=== PATIENT | female | born 1975 | race Caucasian/White ===

== ENCOUNTER → 2016-05-20 | Outpatient (CLI) | payer BC ==
--- NOTE | 2016-05-20 17:23 | XR ---
EXAMINATION TYPE: XR chest 2V DATE OF EXAM: 05/20/2016 2:43 PM COMPARISON: NONE INDICATION: Presurgical evaluation TECHNIQUE: Frontal and lateral views of the chest are obtained. FINDINGS: The heart size is normal. The pulmonary vasculature is normal. The lungs are clear. Osseous structures as visualized appear normal. IMPRESSION: 1. No acute pulmonary process.
== END | disposition home or self-care (01) ==
LOC: RADXRMAIN 13:46
PROVIDERS: ATTEND Family Medicine
DX: Z01.818 Encounter for other preprocedural examination (principal); Z01.812 Encounter for preprocedural laboratory examination
CPT/HCPCS: 71020

== ENCOUNTER → 2016-08-24 | Outpatient (CLI) | payer BC ==
[2016-08-24 09:49] LABS: Anisocytosis Moderate; CH 30.7; CHCM 34.4; HCT 26.4 % (34.0-46.0); HDW 3.52; HGB 8.9 gm/dL (11.4-16.0); MCH 30.2 pg (25.0-35.0); MCHC 33.7 g/dL (31.0-37.0); MCV 89.8 fL (80.0-100.0); Macrocytosis Slight; Mean Platelet Volume 6.8; Poikilocytosis Slight; RBC 2.94 m/uL (3.80-5.40); RDW 20.7 % (11.5-15.5); WBC 2.2 k/uL (3.8-10.6)
== END | disposition home or self-care (01) ==
LOC: LABWHC1 08:55
PROVIDERS: ATTEND Internal Medicine Medical Oncology
DX: C50.911 Malignant neoplasm of unspecified site of right female breast (principal)
CPT/HCPCS: 36415; 85027

== ENCOUNTER 2019-03-11 13:43 | Emergency (ER) | payer OTHER ==
[2019-03-11 13:50] VITALS: BP 114/76; PULSE 109; RESP 18; TEMP 97.9
--- NOTE | 2019-03-11 14:21 | XR ---
Left ankle HISTORY: Trauma and pain 3 views of the left ankle Bone mineralization, joint spaces and alignment are maintained. There is mild soft tissue swelling. IMPRESSION: No acute fracture or dislocation.
--- NOTE | 2019-03-11 14:32 | ED ---
Lower Extremity Injury HPI - General Chief Complaint: Extremity Injury, Lower Stated Complaint: L ankle injury Time Seen by Provider: 03/11/19 13:50 Source: patient Mode of arrival: wheelchair Limitations: no limitations - History of Present Illness Initial Comments: 43-year-old female presents emergency Department chief complaint left ankle injury. Patient states that she wears an AFO brace on the right states that she forgot she denies she wanted states that she slipped. Patient twisted her left ankle. Patient complains of pain on the lateral aspect of her left ankle. She states that she does use crutches because she has cerebral palsy. Patient denies any other injuries at this time. - Related Data Home Medications Medication Instructions Recorded Confirmed Albuterol Inhaler [Ventolin 1 - 2 puff INHALATION Q6HR PRN 07/10/14 04/09/16 Inhaler] Cholecalciferol [Vitamin D3] 2,000 unit PO DAILY 07/10/14 04/09/16 LORazepam [Ativan] 1 mg PO HS 07/10/14 04/09/16 Loratadine-Pseudoeph 10-240 mg 1 each PO DAILY 07/10/14 04/09/16 [Claritin-D 24 Hr] PARoxetine HCL [Paxil Cr] 25 mg PO DAILY 07/10/14 04/09/16 Amoxic-Pot Clav 875-125Mg 1 tab PO Q12HR 12/30/15 04/09/16 [Augmentin 875-125] Ciprofloxacin/Hydrocortisone 3 drops BOTH EARS TID 12/30/15 04/09/16 [Cipro Hc Otic Suspension] Allergies Allergy/AdvReac Type Severity Reaction Status Date / Time succinylcholine AdvReac Severe EXACERBATED Verified 03/11/19 13:44 SPASTICITY IN LEGS Review of Systems ROS Statement: Those systems with pertinent positive or pertinent negative responses have been documented in the HPI. ROS Other: All systems not noted in ROS Statement are negative. Past Medical History Past Medical History: Asthma, Cancer, Pneumonia, Thyroid Disorder Additional Past Medical History / Comment(s): HAS CP. uses forearm crutches, EXERCISE INDUCED ASTHMA MILD. not currently taking thyroid medication History of Any Multi-Drug Resistant Organisms: None Reported Past Surgical History: Ear Surgery, Orthopedic Surgery, Tonsillectomy Additional Past Surgical History / Comment(s): BMT X2. ORIF RT LEG, W/ SUMANTH, SCREWS. TENDON LENGTHENING IN FEET, LEGS., R sided lumpectomy with lymph node removal Past Anesthesia/Blood Transfusion Reactions: Previous Problems w/ Anesthesia Additional Past Anesthesia/Blood Transfusion Reaction / Comment(s): SUCCINYLCHOLINE GREATLY INCREASES SPASTICITY LEGS. Past Psychological History: Anxiety Smoking Status: Never smoker Past Alcohol Use History: None Reported Past Drug Use History: None Reported - Past Family History Mother Family Medical History: Cancer General Exam Limitations: no limitations General appearance: alert, in no apparent distress Head exam: Present: atraumatic, normocephalic, normal inspection Eye exam: Present: normal appearance, PERRL, EOMI. Absent: scleral icterus, conjunctival injection, periorbital swelling Neck exam: Present: normal inspection, full ROM. Absent: tenderness, meningismus, lymphadenopathy Respiratory exam: Present: normal lung sounds bilaterally. Absent: respiratory distress, wheezes, rales, rhonchi, stridor Cardiovascular Exam: Present: regular rate, normal rhythm, normal heart sounds. Absent: systolic murmur, diastolic murmur, rubs, gallop, clicks Extremities exam: Present: other (Left ankle there is tenderness to the lateral malleoli region no ecchymosis, neurovascular intact there is no laxity no proximal tib-fib tenderness, no foot tenderness.) Skin exam: Present: warm, dry, intact, normal color. Absent: rash Course Vital Signs 03/11/19 13:46 Temperature 97.9 F Pulse Rate 109 H Respiratory 18 Rate Blood Pressure 114/76 O2 Sat by Pulse 95 Oximetry Medical Decision Making - Medical Decision Making X-rays are unremarkable. Patient is left ankle sprain. Patient will follow-up PCP and orthopedics. Disposition Clinical Impression: Left ankle sprain Disposition: HOME SELF-CARE Condition: Stable Instructions (If sedation given, give patient instructions): Ankle Sprain (ED) Additional Instructions: Please return to the Emergency Department if symptoms worsen or any other concerns. Is patient prescribed a controlled substance at d/c from ED?: No Referrals: Js Elliott DO [Primary Care Provider] - 1-2 days Florentino Moran MD [Medical Doctor] - 1-2 days Time of Disposition: 14:32
== END 2019-03-11 14:38 | disposition home or self-care (01) ==
LOC: EC 13:43
DX: S93.402A Sprain of unspecified ligament of left ankle, initial encounter (principal); J45.909 Unspecified asthma, uncomplicated; F41.9 Anxiety disorder, unspecified; Z79.899 Other long term (current) drug therapy; Z88.8 Allergy status to other drugs, medicaments and biological substances; X50.9XXA Other and unspecified overexertion or strenuous movements or postures, initial encounter
CPT/HCPCS: 99283

== ENCOUNTER → 2019-03-17 | Outpatient (CLI) | payer OTHER ==
--- NOTE | 2019-03-17 16:42 | CT ---
EXAMINATION TYPE: CT abdomen pelvis w con DATE OF EXAM: 03/17/2019 HISTORY: Generalized abdominal pain. CT DLP: 1247.8mGycm Automated Exposure Control for Dose Reduction was Utilized. CONTRAST: CT scan of the abdomen and pelvis is performed with IV Contrast, patient injected with 100ml mL of Is ovue 300. COMPARISON: None. FINDINGS: LUNG BASES: Lingular pleural parenchymal scarring and scattered areas of subsegmental atelectasis. LIVER/GB: Hepatic parenchyma is diffusely hypoattenuated in comparison to that of the spleen, most co mmonly seen in hepatic steatosis. This finding limits evaluation for hepatic masses. There is a hypoa ttenuated 1.5 x 1.2 cm hepatic lesion in segment 8 with a subcapsular location on series 3 image 22. No intrahepatic biliary ductal dilatation. Filling defect within the gallbladder body may simply repr esent a noncalcified gallstone. Further assessment with ultrasound and color flow is recommended. PANCREAS: No significant abnormality is seen. SPLEEN: No significant abnormality is seen. ADRENALS: No significant abnormality is seen. KIDNEYS: Too small to accurately characterize left lower pole 5 mm hypoattenuated lesion. Otherwise t he kidneys enhance and excrete symmetrically. No hydronephrosis is seen. BOWEL: No dilated large or small bowel. No pericolonic or perienteric fat stranding. LYMPH NODES: No greater than 1cm abdominal or pelvic lymph nodes are appreciated. OSSEOUS STRUCTURES: No significant abnormality is seen. Small broad-based disc bulges at L3-S1. IMPRESSION: 1. Mild degree hepatic steatosis. There is an additional 1.5 cm hypoattenuated solitary view that is nonspecific. MR abdomen with contrast could further evaluate this lesion. 2. Filling defect within the gallbladder lumen may simply represent a noncalcified gallstone. Graysca le and color ultrasound is recommended to assess internal vascularity and/or solid nature of the fill ing defect.
== END | disposition home or self-care (01) ==
LOC: RADCTMAIN 13:43
PROVIDERS: ATTEND Surgery Plastic and Reconstructive Surgery
DX: K76.0 Fatty (change of) liver, not elsewhere classified (principal); K80.20 Calculus of gallbladder without cholecystitis without obstruction
CPT/HCPCS: 74177; Q9967 ×2

== ENCOUNTER 2019-03-20 13:26 | Emergency (ER) | payer OTHER ==
[2019-03-20 13:31] VITALS: RESP 18
--- NOTE | 2019-03-20 14:56 | XR ---
EXAMINATION TYPE: XR chest 2V DATE OF EXAM: 03/20/2019 COMPARISON: 05/20/2016 HISTORY: Chest pain TECHNIQUE: Frontal and lateral views of the chest are obtained. FINDINGS: There is no focal air space opacity. No evidence for pneumothorax. No pleural effusion. The cardiac silhouette size is within normal limits. The osseous structures are grossly intact. IMPRESSION: 1. No acute cardiopulmonary process.
--- NOTE | 2019-03-20 14:58 | ED ---
URI HPI - General Source: patient, RN notes reviewed, old records reviewed Mode of arrival: ambulatory Limitations: no limitations <Deirdre Covarrubias - Last Filed: 03/22/19 09:38> <Daija Rocha - Last Filed: 03/29/19 14:13> - General Chief Complaint: Upper Respiratory Infection Stated Complaint: URI Time Seen by Provider: 03/20/19 13:45 - History of Present Illness Initial Comments: 43 year old female, presents today for concern for cough, congestion. She reports being treated with ciprofloxacin for sinus infection this past week, and reports that she finished these as well as steroids. She reports that she continues to have sinus drainage adn feels it clogging her throat. She reports to having a productive cough. Patient denies fevers or chills. She reports in the middle of the night, she has drainage that blocks her airway and she wakes up coughing and choking.She denies taking OTC decongestant medications. (Deirdre Covarrubias) - Related Data Home Medications Medication Instructions Recorded Confirmed Albuterol Inhaler [Ventolin 1 - 2 puff INHALATION Q6HR PRN 07/10/14 04/09/16 Inhaler] Cholecalciferol [Vitamin D3] 2,000 unit PO DAILY 07/10/14 04/09/16 LORazepam [Ativan] 1 mg PO HS 07/10/14 04/09/16 Loratadine-Pseudoeph 10-240 mg 1 each PO DAILY 07/10/14 04/09/16 [Claritin-D 24 Hr] PARoxetine HCL [Paxil Cr] 25 mg PO DAILY 07/10/14 04/09/16 Amoxic-Pot Clav 875-125Mg 1 tab PO Q12HR 12/30/15 04/09/16 [Augmentin 875-125] Ciprofloxacin/Hydrocortisone 3 drops BOTH EARS TID 12/30/15 04/09/16 [Cipro Hc Otic Suspension] Previous Rx's Medication Instructions Recorded Albuterol Inhaler [Ventolin Hfa 1 - 2 puff INHALATION RT-Q6H PRN 03/20/19 Inhaler] #1 inhaler guaiFENesin-DM 600/30MG [Mucinex 1 each PO Q12HR #20 tab.er.12h 03/20/19 Dm] methylPREDNISolone Dose Pack 4 mg PO DIRECTED #21 package 03/20/19 [Medrol Dose Pack] Allergies Allergy/AdvReac Type Severity Reaction Status Date / Time succinylcholine AdvReac Severe EXACERBATED Verified 03/20/19 13:28 SPASTICITY IN LEGS Review of Systems ROS Other: All systems not noted in ROS Statement are negative. <Deirdre Covarrubias - Last Filed: 03/22/19 09:38> ROS Other: All systems not noted in ROS Statement are negative. <JerryalfredoDaija Dmitriy - Last Filed: 03/29/19 14:13> ROS Statement: Those systems with pertinent positive or pertinent negative responses have been documented in the HPI. Past Medical History Past Medical History: Asthma, Cancer, Pneumonia, Thyroid Disorder Additional Past Medical History / Comment(s): HAS CP. uses forearm crutches, EXERCISE INDUCED ASTHMA MILD. not currently taking thyroid medication History of Any Multi-Drug Resistant Organisms: None Reported Past Surgical History: Ear Surgery, Orthopedic Surgery, Tonsillectomy Additional Past Surgical History / Comment(s): BMT X2. ORIF RT LEG, W/ SUMANTH, SCREWS. TENDON LENGTHENING IN FEET, LEGS., R sided lumpectomy with lymph node removal Past Anesthesia/Blood Transfusion Reactions: Previous Problems w/ Anesthesia Additional Past Anesthesia/Blood Transfusion Reaction / Comment(s): SUCCINYLCHOLINE GREATLY INCREASES SPASTICITY LEGS. Past Psychological History: Anxiety Smoking Status: Never smoker Past Alcohol Use History: None Reported Past Drug Use History: None Reported - Past Family History Mother Family Medical History: Cancer <Deirdre Covarrubias - Last Filed: 03/22/19 09:38> General Exam Limitations: no limitations General appearance: alert, in no apparent distress Head exam: Present: atraumatic, normocephalic, normal inspection Eye exam: Present: normal appearance, PERRL, EOMI. Absent: scleral icterus, conjunctival injection, periorbital swelling ENT exam: Present: normal exam, mucous membranes moist, other (post nasal drip noted. ) Neck exam: Present: normal inspection. Absent: tenderness, meningismus, lymphadenopathy Respiratory exam: Present: normal lung sounds bilaterally. Absent: respiratory distress, wheezes, rales, rhonchi, stridor Cardiovascular Exam: Present: regular rate, normal rhythm, normal heart sounds. Absent: systolic murmur, diastolic murmur, rubs, gallop, clicks GI/Abdominal exam: Present: soft, normal bowel sounds. Absent: distended, tenderness, guarding, rebound, rigid Extremities exam: Present: normal inspection, full ROM, normal capillary refill. Absent: tenderness, pedal edema, joint swelling, calf tenderness Back exam: Present: normal inspection Neurological exam: Present: alert, oriented X3, CN II-XII intact Psychiatric exam: Present: normal affect, normal mood Skin exam: Present: warm, dry, intact, normal color. Absent: rash <Deirdre Covarrubias - Last Filed: 03/22/19 09:38> - General Exam Comments Initial Comments: 43 year old female, no distress. (Deirdre Covarrubias) Course Vital Signs 03/20/19 03/20/19 13:28 15:15 Temperature 98.6 F 98.0 F Pulse Rate 116 H 101 H Respiratory 18 18 Rate Blood Pressure 126/76 121/74 O2 Sat by Pulse 98 96 Oximetry Medical Decision Making <Deirdre Covarrubias - Last Filed: 03/22/19 09:38> <Daija Rocha - Last Filed: 03/29/19 14:13> - Medical Decision Making 43 year old female with sinus congestion and cough. She has normal CXR today no pneumonia. She reports that she has a second abx Rx waiting for her from PCP at pharmacy and came here for symptom relief. She has post nasal drip, no significant coughing or signs of respiratory distress. Discussed patient can be treated with decongestant medication, Rx for labuterol. and close PCP follow up. Return parmaters discussed. (Deirdre Covarrubias) I was available for consultation in the emergency department. The history and physical exam were done by the midlevel provider. I was consulted for this patients care. I reviewed the case with the midlevel provider and based on their presentation of the patient, I agree with the assessment, medical decision making and plan of care as documented. Chart was dictated using [employer] dictation software. Attempts were made to correct any dictation errors however some typographical errors may persist. (Daija Rocha) Disposition Is patient prescribed a controlled substance at d/c from ED?: No Time of Disposition: 15:32 <Deirdre Covarrubias - Last Filed: 03/22/19 09:38> <Daija Rocha - Last Filed: 03/29/19 14:13> Clinical Impression: URI (upper respiratory infection), Sinus congestion Disposition: HOME SELF-CARE Condition: Good Instructions (If sedation given, give patient instructions): Upper Respiratory Infection (ED) Additional Instructions: Please use medication as discussed. Please follow up with family doctor if symptoms have not improved over the next two days. Please return to the emergency room if your symptoms increase or worsen or for any other concerns. Prescriptions: methylPREDNISolone Dose Pack [Medrol Dose Pack] 4 mg PO DIRECTED #21 package guaiFENesin-DM 600/30MG [Mucinex Dm] 1 each PO Q12HR #20 tab.er.12h Albuterol Inhaler [Ventolin Hfa Inhaler] 1 - 2 puff INHALATION RT-Q6H PRN #1 inhaler PRN Reason: Shortness Of Breath Referrals: Js Elliott DO [Primary Care Provider] - 1-2 days
[2019-03-20 15:17] VITALS: BP 121/74; PULSE 101; TEMP 98
== END 2019-03-20 15:44 | disposition home or self-care (01) ==
LOC: EC 13:26
DX: J06.9 Acute upper respiratory infection, unspecified (principal); J34.89 Other specified disorders of nose and nasal sinuses; J45.909 Unspecified asthma, uncomplicated; F41.9 Anxiety disorder, unspecified; Z79.51 Long term (current) use of inhaled steroids; Z79.899 Other long term (current) drug therapy; Z88.8 Allergy status to other drugs, medicaments and biological substances
CPT/HCPCS: 71046; 99284

== ENCOUNTER 2019-05-23 09:38 | Day surgery (SDC) | payer OTHER ==
[2019-05-21 10:35] VITALS: BMI 34.0
--- NOTE | 2019-05-22 19:30 | P.GSHP ---
History of Present Illness H&P Date: 05/22/19 CHIEF COMPLAINT: Cholecystitis HISTORY OF PRESENT ILLNESS: The patient is a 43-year-old female who presents with history of epigastric including right upper quadrant abdominal pain. She underwent diagnostic studies for her gallbladder. Separately her clinical picture was consistent with cholecystitis. Now she presents for surgical intervention. PAST MEDICAL HISTORY: Please see list PAST SURGICAL HISTORY: Please see list MEDICATIONS: Please see list ALLERGIES: Please see list SOCIAL HISTORY: Please see list FAMILY HISTORY: Please see list REVIEW OF ORGAN SYSTEMS: CONSTITUTIONAL: No reports of fevers or chills. PHYSICAL EXAM: VITAL SIGNS: Afebrile vital signs stable GENERAL: Well-developed pleasant in no acute distress. HEENT: No scleral icterus. Extraocular movements grossly intact. Moist buccal mucosa. NECK: Supple without lymphadenopathy. CHEST: Unlabored respirations. Equal bilateral excursions. CARDIOVASCULAR: Regular rate regular rhythm rhythm. Distal 2+ pulses. ABDOMEN: Soft, nondistended. MUSCULOSKELETAL: No clubbing, cyanosis, or edema. NEURO: Cranial nerves II to XII within normal limits. No focal or lateralizing signs. PSYCH: Alert and oriented to person, place and time. SKIN: Well-perfused good skin turgor. ASSESSMENT: 1. Epigastric and right upper quadrant abdominal pain 2. Chronic cholecystitis 3. Symptomatic gallstones. PLAN: 1. Will need a robotic cholecystectomy possible open. Benefits and risks were described. 2. Heparin for DVT prophylaxis 5000 units. 3. Antibiotic prophylaxis. Past Medical History Past Medical History: Asthma, Cancer, Neurologic Disorder, Pneumonia, Thyroid Disorder Additional Past Medical History / Comment(s): HAS CP. spastic quadraplegic uses forearm crutches is fall risk, EXERCISE INDUCED ASTHMA MILD. not currently taking thyroid medication, breast cancer rt 04/27/16 with chemo and radiation, chronic ear infections History of Any Multi-Drug Resistant Organisms: None Reported Past Surgical History: Ear Surgery, Orthopedic Surgery, Tonsillectomy Additional Past Surgical History / Comment(s): BMT X2. ORIF RT LEG, W/ SUMANTH, SCREWS. TENDON LENGTHENING IN FEET, LEGS., R sided lumpectomy with sentinel lymph node removal Past Anesthesia/Blood Transfusion Reactions: Previous Problems w/ Anesthesia Additional Past Anesthesia/Blood Transfusion Reaction / Comment(s): SUCCINYLCHOLINE GREATLY INCREASES SPASTICITY LEGS. Past Psychological History: Anxiety Smoking Status: Never smoker Past Alcohol Use History: None Reported Past Drug Use History: None Reported - Past Family History Mother Family Medical History: Cancer Medications and Allergies Home Medications Medication Instructions Recorded Confirmed Type LORazepam [Ativan] 1 mg PO HS 07/10/14 05/21/19 History Ciprofloxacin/Hydrocortisone 3 drops BOTH EARS TID 12/30/15 05/21/19 History [Cipro Hc Otic Suspension] Albuterol Inhaler [Ventolin Hfa 1 - 2 puff INHALATION RT-Q6H PRN 03/20/19 05/21/19 Rx Inhaler] #1 inhaler Letrozole [Femara] 2.5 mg PO HS 05/21/19 05/21/19 History Oxybutynin Chloride [Ditropan XL] 10 mg PO DAILY 05/21/19 05/21/19 History Potassium Chloride [K-Tab ER] 20 meq PO DAILY 05/21/19 05/21/19 History Vilazodone HCl [Viibryd] 40 mg PO HS 05/21/19 05/21/19 History Zoladex 1 dose INJ Q30D 05/21/19 05/21/19 History Zoledronic Acid [Zometa] 1 dose IV Q6M 05/21/19 05/21/19 History Allergies Allergy/AdvReac Type Severity Reaction Status Date / Time succinylcholine AdvReac Severe EXACERBATED Verified 05/21/19 10:05 SPASTICITY IN LEGS
[~2019-05-23 09:38] MED LIST: ACETAMINOPHEN TAB 500 MG TAB PO STA; DEXAMETHASONE SOD PHOSPHATE 10 MG/ML 1 ML VIAL IV ONE; HEPARIN SODIUM,PORCINE 5,000 UNIT/ML 1 ML VIAL SQ ONE; HYDROmorphone 0.5 MG/0.5 ML SYRINGE IVP PRN; INDOCYANINE GREEN 25 MG VIAL IV ONE; LACTATED RINGERS 1,000 ML IV SCH; LIDOCAINE 1% 20 ML VIAL (10MG/ML) FOR IV START INTRADERMA PRN; ONDANSETRON 4 MG/2 ML VIAL IVP ONE
[2019-05-23] MEDS ORDERED: SCOPOLAMINE 1.5MG/72HR PATCH TRANSDERM ONE ×2 (10:39→12:30)
[2019-05-23] MEDS ORDERED: KETOROLAC 30 MG/ML 1 ML VIAL ONE (10:47)
[2019-05-23] MEDS ORDERED: ROCURONIUM BROMIDE 10 MG/ML 10 ML VIAL IV ONE (10:47)
[2019-05-23] MEDS ORDERED: NEOSTIGMINE 1 MG/ML 10 ML VIAL ONE (10:47)
[2019-05-23] MEDS ORDERED: MIDAZOLAM 2 MG/2 ML VIAL ONE (10:47)
[2019-05-23] MEDS ORDERED: fentaNYL (PF) 50 MCG/ML 2 ML AMP ONE (10:47)
[2019-05-23] MEDS ORDERED: PROPOFOL 10 MG/ML 20 ML VIAL IV ONE (10:47)
[2019-05-23] MEDS ORDERED: GLYCOPYRROLATE 0.2 MG/ML 2 ML VIAL ONE (10:47)
[2019-05-23] MEDS ORDERED: LIDOCAINE 1% INJ 10MG/ML (20 ML MDV) ONE (10:47)
[2019-05-23] MEDS ORDERED: INDOCYANINE GREEN 25 MG VIAL IV ONE (10:51)
[2019-05-23 10:53] LABS: ALT 16 U/L (4-34); AST 26 U/L (14-36); African American GFR (CKD) >90 (>60 ml/min/1.73 sqM); Albumin 4.2 g/dL (3.5-5.0); Alkaline Phosphatase 75 U/L (38-126); Anion Gap 9 mmol/L; Blood Urea Nitrogen 13 mg/dL (7-17); Calcium 9.5 mg/dL (8.4-10.2); Carbon Dioxide 26 mmol/L (22-30); Chloride 106 mmol/L (98-107); Glucose 103 mg/dL (74-99); Non-African American GFR(CKD) >90 (>60 ml/min/1.73 sqM); Potassium 3.9 mmol/L (3.5-5.1); Sodium 141 mmol/L (137-145); Total Bilirubin 0.7 mg/dL (0.2-1.3); Total Protein 7.3 g/dL (6.3-8.2)
[2019-05-23 11:15] LABS: Basophils % (A) 1 %; Eosinophils # (A) 0.2 k/uL (0-0.7); Eosinophils % (A) 5 %; HGB 13.5 gm/dL (11.4-16.0); Lymphocytes # (A) 1.4 k/uL (1.0-4.8); Lymphocytes % (A) 31 %; MCH 28.9 pg (25.0-35.0); MCHC 33.8 g/dL (31.0-37.0); MCV 85.5 fL (80.0-100.0); Mean Platelet Volume 7.4; Monocytes # (A) 0.4 k/uL (0-1.0); Monocytes % (A) 8 %; Neutrophils # (A) 2.5 k/uL (1.3-7.7); Neutrophils % (A) 54 %; Platelet Count 242 k/uL (150-450); RBC 4.68 m/uL (3.80-5.40); RDW 12.5 % (11.5-15.5); WBC 4.6 k/uL (3.8-10.6)
[2019-05-23] MEDS ORDERED: BUPIVACAINE (PF) 0.25% 30 ML VIAL SQ ONE (11:19)
[2019-05-23] MEDS ORDERED: LACTATED RINGERS 1,000 ML IV ONE (11:43)
[2019-05-23 11:59] VITALS: RESP 16; TEMP 96.8
--- NOTE | 2019-05-23 12:04 | P.OP ---
Date of Procedure: 05/23/19 Description of Procedure: SURGEON: NYA HINES MD PREOPERATIVE DIAGNOSES: 1. Acute cholecystitis 2. Right upper quadrant abdominal pain 3. Asthma 4. History of breast cancer with chemoradiation 5. Cerebral palsy spastic quadriplegia POSTOPERATIVE DIAGNOSES: 1. Acute cholecystitis 2. Right upper quadrant abdominal pain 3. Asthma 4. History of breast cancer with chemoradiation 5. Cerebral palsy spastic quadriplegia OPERATION: Robotic-assisted da Zhen Xi laparoscopic cholecystectomy, multiport with FIREFLY ESTIMATED BLOOD LOSS: 5 mL. SPECIMENS REMOVED: Gallbladder. COMPLICATIONS: None. OPERATIVE FINDINGS: 1. Acute cholecystitis 2. Console time 11 minutes INDICATIONS: The patient is a 43-year-old female who presents with acute right upper quadrant abdominal pain and clinical acute cholecystitis. Surgical intervention with a laparoscopic cholecystectomy was described at length including injury to the biliary tree, bleeding, infection, need for further surgery. Informed consent was obtained. Robotic assisted laparoscopic approach was described. Benefits and risks of the procedure including but not limited to bleeding, infection, injury to the biliary tree was described. Informed consent was obtained. DESCRIPTION OF PROCEDURE: Patient was brought to the operating room, placed in supine position. After general induction, the abdomen had been prepped and draped in standard sterile fashion. The robotic da Zhen XI system was primed. After a timeout protocol was performed, the patient had been prepped and draped in standard sterile fashion. The patient was injected with indocyanine green. A 5 mm 0 degrees laparoscopic trocar entry was performed along the left upper quadrant. The abdomen insufflated to 15 mmHg pressure which was tolerated well. Diagnostic laparoscopy demonstrated no injury to bowel viscera or mesentery. Th e liver surface was unremarkable. Next, two 8 mm robotic ports were placed along the right upper abdomen. The camera 8-mm port was maintained along the epigastrium. Another 8 mm port was placed along the left upper abdominal wall after exchanging the 5 mm port. Please note that the ports were placed at least 10 to 15 cm away from the target anatomy of the gallbladder. The robot was docked along the left lateral abdomen. The patient was repositioned in reverse Trendelenburg position. Using a grasper for arm 3, a grasper for arm 4, including hook cautery for arm 1, the robotic system was docked and primed as described. Instruments were interchanged by the psychiatric technician assistant including hook cautery, Bovie cautery and clip appliers. I had sat at the console. The gallbladder fundus was retracted over the dome of the liver. Initial attention was brought to the infundibulum which was gently retracted in the inferior lateral approach. Using a grasper, the cystic duct including the cystic artery was carefully skeletonized. FIREFLY was used to identify the cystic artery and cystic structures. A critical view of safety was obtained. Large PLASTIC clips were used throughout the entire case. Using a clip dipper and baker 2 clips were placed proximally, and 1 clip was placed between the infundibulum and cystic duct and divided using cautery. Next, the cystic artery was similarly clipped and cauterized. Electro-Bovie cautery was used to remove the gallbladder from the hepatic fossa. Hemostasis was checked and found to be adequate. The robot was undocked. I re-scrubbed into the case. Using a 10 mm Endo Catch bag via the left upper quadrant incision, the specimen was removed from the abdominal cavity. All pneumoperitoneum instruments were evacuated from the abdominal cavity. The incisions were reapproximated using 4-0 Monocryl in an interrupted subcuticular fashion. Fascial defects were less than 8 mm in size. Please note along the trocar sites, local anesthetic was placed as a field block prior to insertion of all instruments. Liquid glue was applied to the skin. At the end of the procedure needle, sponge, and instrument count had been verified correct by the registered nurse surgical services. The patient was transferred to postanesthesia care unit in stable condition. Intraoperative films were shared with the patient's family who were very pleased with the level of care. Plan - Discharge Summary Discharge Rx Participant: No New Discharge Prescriptions: New Ibuprofen [Motrin] 600 mg PO Q8HR PRN #30 tab PRN Reason: Pain Simethicone 40 mg/0.6 ml Drops [Mylicon Drops] 40 mg PO Q6HR PRN #30 ml PRN Reason: Abdominal Distention Acetaminophen Tab [Tylenol Tab] 500 mg PO Q6H PRN #30 tablet PRN Reason: Pain Continue LORazepam [Ativan] 1 mg PO HS Ciprofloxacin/Hydrocortisone [Cipro Hc Otic Suspension] 3 drops BOTH EARS TID Albuterol Inhaler [Ventolin Hfa Inhaler] 1 - 2 puff INHALATION RT-Q6H PRN #1 inhaler PRN Reason: Shortness Of Breath Oxybutynin Chloride [Ditropan XL] 10 mg PO DAILY Potassium Chloride [K-Tab ER] 20 meq PO DAILY Vilazodone HCl [Viibryd] 40 mg PO HS Letrozole [Femara] 2.5 mg PO HS Zoladex 1 dose INJ Q30D Zoledronic Acid [Zometa] 1 dose IV Q6M Discharge Medication List LORazepam [Ativan] 1 mg PO HS 07/10/14 [History] Ciprofloxacin/Hydrocortisone [Cipro Hc Otic Suspension] 3 drops BOTH EARS TID 12/30/15 [History] Albuterol Inhaler [Ventolin Hfa Inhaler] 1 - 2 puff INHALATION RT-Q6H PRN #1 inhaler 03/20/19 [Rx] Letrozole [Femara] 2.5 mg PO HS 05/21/19 [History] Oxybutynin Chloride [Ditropan XL] 10 mg PO DAILY 05/21/19 [History] Potassium Chloride [K-Tab ER] 20 meq PO DAILY 05/21/19 [History] Vilazodone HCl [Viibryd] 40 mg PO HS 05/21/19 [History] Zoladex 1 dose INJ Q30D 05/21/19 [History] Zoledronic Acid [Zometa] 1 dose IV Q6M 05/21/19 [History] Acetaminophen Tab [Tylenol Tab] 500 mg PO Q6H PRN #30 tablet 05/23/19 [Rx] Ibuprofen [Motrin] 600 mg PO Q8HR PRN #30 tab 05/23/19 [Rx] Simethicone 40 mg/0.6 ml Drops [Mylicon Drops] 40 mg PO Q6HR PRN #30 ml 05/23/19 [Rx] Follow up Appointment(s)/Referral(s): Nya Hines MD [STAFF PHYSICIAN] - 05/27/19 Patient Instructions/Handouts: Laparoscopic Cholecystectomy (GEN) Activity/Diet/Wound Care/Special Instructions: No lifting over 10 pounds in 2 weeks until Jun 06. August shower. No bath tub soaks for two weeks until Jun 06 Diet as tolerated. No driving while on narcotics. Use Tylenol and ibuprofen or Aleve scheduled for the next 24-48 hours for best pain relief. Use ice along incisions for the today to prevent swelling. Discharge Disposition: HOME SELF-CARE
[2019-05-23] MEDS ORDERED: SIMETHICONE 80 MG CHEWABLE PO SCH (12:30)
[2019-05-23] MEDS ORDERED: ACETAMINOPHEN TAB 500 MG TAB PO ONE (13:41)
[2019-05-23 14:06] VITALS: BP 122/67; PULSE 91
== END 2019-05-23 14:26 | disposition home or self-care (01) ==
LOC: OR 09:38
PROVIDERS: ATTEND Surgery Plastic and Reconstructive Surgery
DX: K80.12 Calculus of gallbladder with acute and chronic cholecystitis without obstruction (principal); J45.909 Unspecified asthma, uncomplicated; G80.0 Spastic quadriplegic cerebral palsy; E66.09 Other obesity due to excess calories; E07.9 Disorder of thyroid, unspecified; Z85.3 Personal history of malignant neoplasm of breast; Z92.21 Personal history of antineoplastic chemotherapy; Z68.34 Body mass index [BMI] 34.0-34.9, adult; H66.90 Otitis media, unspecified, unspecified ear; Z87.01 Personal history of pneumonia (recurrent); Z92.3 Personal history of irradiation; F41.9 Anxiety disorder, unspecified; Z88.8 Allergy status to other drugs, medicaments and biological substances; Z79.2 Long term (current) use of antibiotics; Z79.899 Other long term (current) drug therapy
CPT/HCPCS: 47562; S2900; 80053; 85025; 88304

== ENCOUNTER 2019-05-27 11:14 | Inpatient (IN) | payer OTHER ==
[2019-05-27] MEDS ORDERED: SODIUM CHLORIDE 0.9% 1,000 ML IV STA (12:11)
[2019-05-27] MEDS ORDERED: SODIUM CHLORIDE 0.9% 2,000 ML IV STA (12:11)
[2019-05-27] MEDS ORDERED: HYDROmorphone 0.5 MG/0.5 ML SYRINGE IVP STA (12:11)
[2019-05-27] MEDS ORDERED: ONDANSETRON 4 MG/2 ML VIAL IVP STA (12:11)
[2019-05-27] MEDS ORDERED: PANTOPRAZOLE 40 MG/10 ML VIAL IVP STA (12:11)
[2019-05-27 12:38] LABS: Basophils % (A) 0 %; Eosinophils # (A) 0.2 k/uL (0-0.7); Eosinophils % (A) 2 %; HGB 15.4 gm/dL (11.4-16.0); Lymphocytes # (A) 1.2 k/uL (1.0-4.8); Lymphocytes % (A) 12 %; MCH 28.9 pg (25.0-35.0); MCHC 34.1 g/dL (31.0-37.0); MCV 84.6 fL (80.0-100.0); Mean Platelet Volume 7.1; Monocytes # (A) 0.5 k/uL (0-1.0); Monocytes % (A) 5 %; Neutrophils # (A) 7.9 k/uL (1.3-7.7); Neutrophils % (A) 80 %; Platelet Count 305 k/uL (150-450); RBC 5.32 m/uL (3.80-5.40); RDW 12.6 % (11.5-15.5); WBC 9.9 k/uL (3.8-10.6)
[2019-05-27 12:48] LABS: ALT 20 U/L (4-34); AST 35 U/L (14-36); African American GFR (CKD) >90 (>60 ml/min/1.73 sqM); Albumin 4.6 g/dL (3.5-5.0); Alkaline Phosphatase 83 U/L (38-126); Amylase 40 U/L (30-110); Anion Gap 13 mmol/L; Blood Urea Nitrogen 10 mg/dL (7-17); Calcium 9.5 mg/dL (8.4-10.2); Carbon Dioxide 21 mmol/L (22-30); Chloride 104 mmol/L (98-107); Glucose 119 mg/dL (74-99); Non-African American GFR(CKD) >90 (>60 ml/min/1.73 sqM); Potassium 3.8 mmol/L (3.5-5.1); Sodium 138 mmol/L (137-145); Total Bilirubin 0.9 mg/dL (0.2-1.3)
[2019-05-27 12:52] LABS: INR 0.9 (<1.2); Partial Thromboplastin Time 22.9 sec (22.0-30.0); Prothrombin Time 9.7 sec (9.0-12.0)
--- NOTE | 2019-05-27 13:02 | ED ---
General Adult HPI <Duran Weinstein - Last Filed: 05/27/19 13:51> - General Source: patient, RN notes reviewed, old records reviewed Mode of arrival: ambulatory Limitations: no limitations <SatishDeirdre - Last Filed: 05/27/19 14:12> - General Chief complaint: Nausea/Vomiting/Diarrhea Stated complaint: post surgical problem, vomiting Time Seen by Provider: 05/27/19 11:57 - History of Present Illness Initial comments: Patient is a 43-year-old female who presents emergency department today with recent cholecystectomy procedure on 05/23/2019, consistent with Dr. London. She presents today after visiting Dr. London for follow-up appointment and started to have nausea and vomiting starting this morning. Patient vomited multiple times in the physician's office as well as on her way to the emergency room. Patient states that she has had no significant right upper quadrant pain. She does report some swelling over her left abdominal incision site. Patient states that she has had no specific fevers or chills. She denies any changes in urination or bowel habits. She denies any history of sick contacts. erich has a past medical history of breast cancer in remission, she reports history of spastic quadriplegia, she does wear forearm crutches for fall risk. (Deirdre Covarrubias) - Related Data Home Medications Medication Instructions Recorded Confirmed LORazepam [Ativan] 1 mg PO HS 07/10/14 05/21/19 Ciprofloxacin/Hydrocortisone 3 drops BOTH EARS TID 12/30/15 05/21/19 [Cipro Hc Otic Suspension] Letrozole [Femara] 2.5 mg PO HS 05/21/19 05/21/19 Oxybutynin Chloride [Ditropan XL] 10 mg PO DAILY 05/21/19 05/21/19 Potassium Chloride [K-Tab ER] 20 meq PO DAILY 05/21/19 05/21/19 Vilazodone HCl [Viibryd] 40 mg PO HS 05/21/19 05/23/19 Zoladex 1 dose INJ Q30D 05/21/19 05/23/19 Zoledronic Acid [Zometa] 1 dose IV Q6M 05/21/19 05/23/19 Previous Rx's Medication Instructions Recorded Albuterol Inhaler [Ventolin Hfa 1 - 2 puff INHALATION RT-Q6H PRN 03/20/19 Inhaler] #1 inhaler Acetaminophen Tab [Tylenol Tab] 500 mg PO Q6H PRN #30 tablet 05/23/19 Ibuprofen [Motrin] 600 mg PO Q8HR PRN #30 tab 05/23/19 Simethicone 40 mg/0.6 ml Drops 40 mg PO Q6HR PRN #30 ml 05/23/19 [Mylicon Drops] Allergies Allergy/AdvReac Type Severity Reaction Status Date / Time chlorhexidine Allergy Rash/Hives Verified 05/23/19 10:15 Iodinated Contrast Media Allergy Rash/Hives Verified 05/27/19 13:24 succinylcholine AdvReac Severe EXACERBATED Verified 05/23/19 10:15 SPASTICITY IN LEGS Review of Systems ROS Other: All systems not noted in ROS Statement are negative. <Duran Weinstein - Last Filed: 05/27/19 13:51> ROS Other: All systems not noted in ROS Statement are negative. <Deirdre Covarrubias - Last Filed: 05/27/19 14:12> ROS Statement: Those systems with pertinent positive or pertinent negative responses have been documented in the HPI. Past Medical History Past Medical History: Asthma, Cancer, Neurologic Disorder, Pneumonia, Thyroid Disorder Additional Past Medical History / Comment(s): HAS CP. spastic quadraplegic uses forearm crutches is fall risk, EXERCISE INDUCED ASTHMA MILD. not currently taking thyroid medication, breast cancer rt 04/27/16 with chemo and radiation, chronic ear infections History of Any Multi-Drug Resistant Organisms: None Reported Past Surgical History: Cholecystectomy, Ear Surgery, Orthopedic Surgery, Tonsillectomy Additional Past Surgical History / Comment(s): BMT X2. ORIF RT LEG, W/ SUMANTH, SCREWS. TENDON LENGTHENING IN FEET, LEGS., R sided lumpectomy with sentinel lymph node removal Past Anesthesia/Blood Transfusion Reactions: Previous Problems w/ Anesthesia Additional Past Anesthesia/Blood Transfusion Reaction / Comment(s): SUCCINYLCHOLINE GREATLY INCREASES SPASTICITY LEGS. Past Psychological History: Anxiety Smoking Status: Never smoker Past Alcohol Use History: None Reported Past Drug Use History: None Reported - Past Family History Mother Family Medical History: Cancer <Deirdre Covarrubias - Last Filed: 05/27/19 14:12> General Exam Limitations: no limitations General appearance: alert, in no apparent distress Head exam: Present: atraumatic, normocephalic, normal inspection Eye exam: Present: normal appearance, PERRL, EOMI. Absent: scleral icterus, conjunctival injection, periorbital swelling ENT exam: Present: normal exam, mucous membranes moist Neck exam: Present: normal inspection. Absent: tenderness, meningismus, lymphadenopathy Respiratory exam: Present: normal lung sounds bilaterally. Absent: respiratory distress, wheezes, rales, rhonchi, stridor Cardiovascular Exam: Present: regular rate, normal rhythm, normal heart sounds. Absent: systolic murmur, diastolic murmur, rubs, gallop, clicks GI/Abdominal exam: Present: soft, normal bowel sounds, other (Incision sites appear well. Some bruising near her incision sites. She does have some swelling, possible seroma over the left abdominal incision site.). Absent: distended, tenderness, guarding, rebound, rigid Extremities exam: Present: normal inspection, full ROM, normal capillary refill. Absent: tenderness, pedal edema, joint swelling, calf tenderness Back exam: Present: normal inspection Neurological exam: Present: alert, oriented X3, CN II-XII intact Psychiatric exam: Present: normal affect, normal mood Skin exam: Present: warm, dry, intact, normal color. Absent: rash <Deirdre Covarrubias - Last Filed: 05/27/19 14:12> - General Exam Comments Initial Comments: Pleasant 43-year-old female. (Deirdre Covarrubias) Course <Duran Weinstein - Last Filed: 05/27/19 13:51> <Deirdre Covarrubias - Last Filed: 05/27/19 14:12> Vital Signs 05/27/19 05/27/19 11:40 13:21 Temperature 97.8 F Pulse Rate 101 H 100 Respiratory 18 18 Rate Blood Pressure 103/77 108/79 O2 Sat by Pulse 98 98 Oximetry - Reevaluation(s) Reevaluation #1: 05/27/19 13:14 started to have a ALLERGIC reaction after receiving IV contrast. Will be given Benadryl Solu-Medrol Pepcid (Deirdre Covarrubias) Reevaluation #2: 05/27/19 13:51 A supervision: Patient was sent in by Dr. London for evaluation CAT scan shows evidence of incisional hernia. His been there probably for 2 days. This is per history. Patient will be admitted as per Dr. London. (Duran Weinstein) Medical Decision Making - Lab Data Result diagrams: 05/27/19 12:23 05/27/19 12:23 <Duran Weinstein - Last Filed: 05/27/19 13:51> - Lab Data Result diagrams: 05/27/19 12:23 05/27/19 12:23 - Radiology Data Radiology results: report reviewed <Deirdre Covarrubias - Last Filed: 05/27/19 14:12> - Medical Decision Making 43-year-old feel presents today for emergency room for nausea and vomiting. She also been some left-sided abdominal swelling. She is 4 days postop for cholecystectomy. She does have some swelling over left abdominal incision site. No erythema. Does have some tenderness. Blood work was reviewed and unremar kable. Computed tomography scan does show evidence of incarcerated hernia. I did quickly discuss case patient's surgeon Dr. London. Ordering an NG tube and Patient will be admitted at this time. Was given pain control. Patient case is discussed with follow-up with placement in. (Deirdre Covarrubias) - Lab Data Lab Results 05/27/19 05/27/19 05/27/19 Range/Units 12:23 12:23 12:23 WBC 9.9 (3.8-10.6) k/uL RBC 5.32 (3.80-5.40) m/uL Hgb 15.4 (11.4-16.0) gm/dL Hct 45.0 (34.0-46.0) % MCV 84.6 (80.0-100.0) fL MCH 28.9 (25.0-35.0) pg MCHC 34.1 (31.0-37.0) g/dL RDW 12.6 (11.5-15.5) % Plt Count 305 (150-450) k/uL Neutrophils % 80 % Lymphocytes % 12 % Monocytes % 5 % Eosinophils % 2 % Basophils % 0 % Neutrophils # 7.9 H (1.3-7.7) k/uL Lymphocytes # 1.2 (1.0-4.8) k/uL Monocytes # 0.5 (0-1.0) k/uL Eosinophils # 0.2 (0-0.7) k/uL Basophils # 0.0 (0-0.2) k/uL PT 9.7 (9.0-12.0) sec INR 0.9 (<1.2) APTT 22.9 (22.0-30.0) sec Sodium 138 (137-145) mmol/L Potassium 3.8 (3.5-5.1) mmol/L Chloride 104 (98-107) mmol/L Carbon Dioxide 21 L (22-30) mmol/L Anion Gap 13 mmol/L BUN 10 (7-17) mg/dL Creatinine 0.60 (0.52-1.04) mg/dL Est GFR (CKD-EPI)AfAm >90 (>60 ml/min/1.73 sqM) Est GFR (CKD-EPI)NonAf >90 (>60 ml/min/1.73 sqM) Glucose 119 H (74-99) mg/dL Calcium 9.5 (8.4-10.2) mg/dL Total Bilirubin 0.9 (0.2-1.3) mg/dL AST 35 (14-36) U/L ALT 20 (4-34) U/L Alkaline Phosphatase 83 (38-126) U/L Total Protein 8.0 (6.3-8.2) g/dL Albumin 4.6 (3.5-5.0) g/dL Amylase 40 (30-110) U/L Lipase 42 (23-300) U/L - Radiology Data S (Deirdre Covarrubias) Disposition <Duran Weinstein - Last Filed: 05/27/19 13:51> Is patient prescribed a controlled substance at d/c from ED?: No Time of Disposition: 14:12 <Deirdre Covarrubias - Last Filed: 05/27/19 14:12> Clinical Impression: Incisional hernia, Bowel obstruction Disposition: ADMITTED IP TO THIS HOSP Condition: Stable Referrals: Js Elliott DO [Primary Care Provider] - 1-2 days
[2019-05-27] MEDS ORDERED: FAMOTIDINE 20 MG/2 ML VIAL IV STA (13:13)
[2019-05-27] MEDS ORDERED: methylPREDNISolone SOD SUCCI 125 MG/2 ML VIAL IV STA (13:13)
[2019-05-27] MEDS ORDERED: diphenhydrAMINE 50 MG/ML 1 ML VIAL IVP STA (13:13)
--- NOTE | 2019-05-27 13:30 | CT ---
EXAMINATION TYPE: CT abdomen pelvis w con DATE OF EXAM: 05/27/2019 COMPARISON: 03/17/2019 HISTORY: Abd pain CT DLP: 1182.8 mGycm CONTRAST: CT scan of the abdomen and pelvis is performed without Oral Contrast and with IV Contrast, patient in jected with 100 mL of Isovue 300. FINDINGS: LUNG BASES-: No visible nodule. No infiltrate. LIVER/GB: No calcified gallstones. Stable nonspecific hypoattenuating lesion within the periphery o f the anterior segment right hepatic lobe measuring 1.5 cm. No additional lesions seen. Biliary tree is of normal caliber. PANCREAS: No inflammation. No distinct mass. SPLEEN: No splenic enlargement. No lesion seen. ADRENALS: No nodule. No thickening. KIDNEYS/BLADDER: No hydronephrosis. No nephrolithiasis. No distinct renal mass. Urinary bladder g rossly unremarkable. BOWEL: Dilated small bowel measuring up to 3 cm. Left sided anterolateral abdominal hernia which cont ains a segment of dilated small bowel surrounding attenuation. Strangulation or incarceration not exc luded. The remainder of the small and large bowel are of normal caliber. No evidence for free air or abscess. GENITAL ORGANS: No gross abnormality. LYMPH NODES: No greater than 1cm abdominal or pelvic lymph nodes are appreciated. AORTA: No significant abnormality. OSSEOUS STRUCTURES: No significant abnormality is seen. OTHER: Small amount of free fluid within the pelvis. IMPRESSION: 1. Dilated small bowel measuring up to 3 cm. Left sided anterolateral abdominal hernia which contains a segment of dilated small bowel surrounding attenuation. Strangulation or incarceration not exclude d.
[2019-05-27] MEDS ORDERED: NALOXONE 0.4 MG/ML 1 ML VIAL IV PRN ×2 (13:58→14:13)
[2019-05-27] MEDS ORDERED: HEPARIN SODIUM,PORCINE 5,000 UNIT/ML 1 ML VIAL SQ STA (14:00)
[2019-05-27] MEDS ORDERED: HYDROmorphone 1 MG/ML 1 ML SYRINGE IVP STA (14:02)
[2019-05-27] MEDS: SODIUM CHLORIDE 0.9% 1,000 ML IV SCH ×4 (14:31→20:50)
[2019-05-27 14:44] LABS: Appearance,Urine Clear (Clear); Bilirubin,Urine Negative (Negative); Blood,Urine Trace (Negative); Color,Urine Yellow; Glucose,Urine (UA) Negative (Negative); Ketones,Urine Negative (Negative); Leukocyte Esterase,Urine Negative (Negative); Mucus,Urine Rare /hpf; Nitrite,Urine Negative (Negative); Protein,Urine Trace (Negative); RBC,Urine 12 /hpf (0-5); Squamous Epithelial Cell,Urine <1 /hpf (0-4); Urobilinogen,Urine <2.0 mg/dL (<2.0); WBC,Urine 3 /hpf (0-5)
--- NOTE | 2019-05-27 15:12 | XR ---
Frontal KUB HISTORY: NG tube placement Single frontal KUB NG tube has been placed in the distal tip is overlying the left upper quadrant, side-port is near the chest or soft tissue junction level. Air-fluid levels are present. No pneumoperitoneum. Lung bases a re clear. Surgical clips present in the right axilla. impression: NG tube is described
[2019-05-27] MEDS ORDERED: METOCLOPRAMIDE 5 MG/ML 2 ML VIAL IVP PRN (19:13)
--- NOTE | 2019-05-27 19:27 | P.GSHP ---
History of Present Illness H&P Date: 05/27/19 CHIEF COMPLAINT: Small bowel obstruction HISTORY OF PRESENT ILLNESS: The patient is a 43-year-old female postop day 4 who was being seen in the office. Last night, she noticed swelling along her left upper quadrant incision. She reports lifting herself into her vehicle including well over 10 pounds per instructions with her own body weight of over 90+ pounds since her surgery. She reports having a bowel movement this morning. She denies any passage of flatus today. She developed acute nausea this morning. In my office, she had acute bilious emesis over 500 mL. She was sent to the emergency room where additional studies were performed. CT confirmed acute small bowel obstruction with incisional hernia of the left upper trocar site hence her admission today. PAST MEDICAL HISTORY: See list. PAST SURGICAL HISTORY: See list. MEDICATIONS: See list. ALLERGIES: See list. SOCIAL HISTORY: See list. FAMILY HISTORY: See list. REVIEW OF ORGAN SYSTEMS: CONSTITUTIONAL: No fevers or chills. No recent weight loss. EYES: Denies any double vision. Wears glasses. HEENT: No difficulties with hearing. No nosebleeds. No difficulty swallowing. RESPIRATORY: Has asthma CARDIOVASCULAR: Denies any chest pain, palpitations, or recent heart attacks. GASTROINTESTINAL: Denies fatty food intolerance. Has change in bowel habits and gas bloat. GENITOURINARY: Denies any blood in urine or increased urinary frequency. NEUROLOGICAL: Has spastic quadriplegia with cerebral palsy MUSCULOSKELETAL: Has back pain, stiffness or joint arthritis. SKIN: No current skin cancer. No rash. PSYCHIATRIC: Denies current depression or suicidal thoughts. ENDOCRINE: Denies current thyroid disorders. Denies any blood sugar glucose intolerance. HEME/LYMPHATIC: Denies any lumps and bumps around the neck. No recent deep venous thrombosis. ALLERGY/IMMUNOLOGY: Currently on chemotherapy BREAST: History of breast cancer status post lumpectomy PHYSICAL EXAM: VITALS: Reviewed CONSTITUTIONAL: Well developed and in no acute distress. EYES: Conjuctivae without sclera icterus. Pupils are equally round and reactive to light. Extraocular movements grossly intact. HEAD, EARS, NOSE, THROAT: Dry buccal mucosa. Head is atraumatic, normocephalic. Hears conversational speech. No nasal drainage. NECK: Supple. No JV distention. No thyroidomegaly. RESPIRATORY: Non-labored respirations and equal bilateral excursions. No gross wheezes. CARDIOVASCULAR: Regular rate and rhythm. Extremities without moderate edema. Palpable 2+ radial pulses. ABDOMEN: Soft. Swelling along the left upper quadrant. No skin changes or signs of strangulation. Swelling along the left upper incision MUSCULOSKELETAL: Nail and fingers with delayed capillary refill. SKIN: Warm and well perfused with good skin turgor. NEUROLOGIC: Cranial nerves I through XII grossly intact. Sensation upper and extremities intact. No focal or lateralizing signs. PSYCH: Appropriate affect. Alert and oriented to person, place and time. Displays appropriate insight. CLINCAL LABS: LFTs within normal limits. WBC within normal limits IMAGING: Independently reviewed with small bowel obstruction by incisional hernia left upper quadrant RADIOLOGY: Report reviewed nasogastric tube within the stomach ASSESSMENT: 1. Acute small bowel obstruction due to incisional hernia, left upper quadrant 2. Intractable nausea and vomiting with dehydration 3. Asthma 4. History of breast cancer with chemoradiation 5. Cerebral palsy spastic quadriplegia PLAN: 1. Nasogastric tube placement for bowel decompression for small bowel obstruction 2. IV fluid hydration for dehydration 3. Surgical intervention with laparoscopic reduction of small bowel obstruction and incisional hernia repair described 4. Recommend inpatient hospitalization secondary to acute small bowel obstruction including quadriplegia spastic quadriplegia 5. She is at increased risk for any hernias with her lifting over 10 pounds with her spastic quadriplegia Past Medical History Past Medical History: Asthma, Cancer, Neurologic Disorder, Pneumonia, Thyroid Disorder Additional Past Medical History / Comment(s): HAS CP. spastic quadraplegic uses forearm crutches is fall risk, EXERCISE INDUCED ASTHMA MILD. not currently taking thyroid medication, breast cancer rt 04/27/16 with chemo and radiation, chronic ear infections History of Any Multi-Drug Resistant Organisms: None Reported Past Surgical History: Cholecystectomy, Ear Surgery, Orthopedic Surgery, Tonsillectomy Additional Past Surgical History / Comment(s): BMT X2. ORIF RT LEG, W/ SUMANTH, SCREWS. TENDON LENGTHENING IN FEET, LEGS., R sided lumpectomy with sentinel lymph node removal Past Anesthesia/Blood Transfusion Reactions: Previous Problems w/ Anesthesia Additional Past Anesthesia/Blood Transfusion Reaction / Comment(s): SUCCINYLCHOLINE GREATLY INCREASES SPASTICITY LEGS. Past Psychological History: Anxiety Smoking Status: Never smoker Past Alcohol Use History: None Reported Past Drug Use History: None Reported - Past Family History Mother Family Medical History: Cancer Medications and Allergies Home Medications Medication Instructions Recorded Confirmed Type LORazepam [Ativan] 1 mg PO TID PRN 07/10/14 05/27/19 History Ciprofloxacin/Hydrocortisone 3 drops BOTH EARS TID 12/30/15 05/27/19 History [Cipro Hc Otic Suspension] Albuterol Inhaler [Ventolin Hfa 1 - 2 puff INHALATION RT-Q6H PRN 03/20/19 05/27/19 Rx Inhaler] #1 inhaler Letrozole [Femara] 2.5 mg PO HS 05/21/19 05/27/19 History Oxybutynin Chloride [Ditropan XL] 10 mg PO DAILY 05/21/19 05/27/19 History Potassium Chloride [K-Tab ER] 20 meq PO DAILY 05/21/19 05/27/19 History Zoladex 1 dose INJ Q30D 05/21/19 05/27/19 History Zoledronic Acid [Zometa] 1 dose IV Q6M 05/21/19 05/27/19 History Acetaminophen Tab [Tylenol Tab] 500 mg PO Q6H PRN #30 tablet 05/23/19 05/27/19 Rx Ibuprofen [Motrin] 600 mg PO Q8HR PRN #30 tab 05/23/19 05/27/19 Rx Simethicone 40 mg/0.6 ml Drops 40 mg PO Q6HR PRN #30 ml 05/23/19 05/27/19 Rx [Mylicon Drops] Vilazodone HCl [Viibryd] 20 mg PO DAILY 05/27/19 05/27/19 History Allergies Allergy/AdvReac Type Severity Reaction Status Date / Time chlorhexidine Allergy Rash/Hives Verified 05/27/19 14:51 Iodinated Contrast Media Allergy Rash/Hives Verified 05/27/19 14:51 succinylcholine AdvReac Severe EXACERBATED Verified 05/27/19 14:51 SPASTICITY IN LEGS Surgical - Exam Vital Signs Temp Pulse Resp BP Pulse Ox 97.8 F 101 H 18 103/77 98 05/27/19 11:40 05/27/19 11:40 05/27/19 11:40 05/27/19 11:40 05/27/19 11:40 Results - Labs 05/27/19 12:23 05/27/19 12:23 Abnormal Lab Results - Last 24 Hours (Table) 05/27/19 05/27/19 05/27/19 Range/Units 12:23 12:23 14:30 Neutrophils # 7.9 H (1.3-7.7) k/uL Carbon Dioxide 21 L (22-30) mmol/L Glucose 119 H (74-99) mg/dL Ur Specific Drake 1.050 H (1.001-1.035) Urine Protein Trace H (Negative) Urine Blood Trace H (Negative) Urine RBC 12 H (0-5) /hpf Urine Mucus Rare H (None) /hpf Diabetes panel 05/27/19 Range/Units 12:23 Sodium 138 (137-145) mmol/L Potassium 3.8 (3.5-5.1) mmol/L Chloride 104 (98-107) mmol/L Carbon Dioxide 21 L (22-30) mmol/L BUN 10 (7-17) mg/dL Creatinine 0.60 (0.52-1.04) mg/dL Glucose 119 H (74-99) mg/dL Calcium 9.5 (8.4-10.2) mg/dL AST 35 (14-36) U/L ALT 20 (4-34) U/L Alkaline Phosphatase 83 (38-126) U/L Total Protein 8.0 (6.3-8.2) g/dL Albumin 4.6 (3.5-5.0) g/dL Calcium panel 05/27/19 Range/Units 12:23 Calcium 9.5 (8.4-10.2) mg/dL Albumin 4.6 (3.5-5.0) g/dL Pituitary panel 05/27/19 Range/Units 12:23 Sodium 138 (137-145) mmol/L Potassium 3.8 (3.5-5.1) mmol/L Chloride 104 (98-107) mmol/L Carbon Dioxide 21 L (22-30) mmol/L BUN 10 (7-17) mg/dL Creatinine 0.60 (0.52-1.04) mg/dL Glucose 119 H (74-99) mg/dL Calcium 9.5 (8.4-10.2) mg/dL Adrenal panel 05/27/19 Range/Units 12:23 Sodium 138 (137-145) mmol/L Potassium 3.8 (3.5-5.1) mmol/L Chloride 104 (98-107) mmol/L Carbon Dioxide 21 L (22-30) mmol/L BUN 10 (7-17) mg/dL Creatinine 0.60 (0.52-1.04) mg/dL Glucose 119 H (74-99) mg/dL Calcium 9.5 (8.4-10.2) mg/dL Total Bilirubin 0.9 (0.2-1.3) mg/dL AST 35 (14-36) U/L ALT 20 (4-34) U/L Alkaline Phosphatase 83 (38-126) U/L Total Protein 8.0 (6.3-8.2) g/dL Albumin 4.6 (3.5-5.0) g/dL Assessment and Plan (1) Incisional hernia of anterior abdominal wall with obstruction Current Visit: Yes Status: Acute Code(s): K43.0 - INCISIONAL HERNIA WITH OBSTRUCTION, WITHOUT GANGRENE SNOMED Code(s): 937918241 (2) Asthma Current Visit: No Status: Acute Code(s): J45.909 - UNSPECIFIED ASTHMA, UNCOMPLICATED SNOMED Code(s): 917801771 (3) History of breast cancer Current Visit: No Status: Acute Code(s): Z85.3 - PERSONAL HISTORY OF MALIGNA NT NEOPLASM OF BREAST SNOMED Code(s): 532389446 (4) Obesity (BMI 30.0-34.9) Current Visit: No Status: Acute Code(s): E66.9 - OBESITY, UNSPECIFIED SNOMED Code(s): 888878027719429 (5) Spastic cerebral palsy Current Visit: No Status: Acute Code(s): G80.1 - SPASTIC DIPLEGIC CEREBRAL PALSY SNOMED Code(s): 141048736
[2019-05-27] MEDS: LETROZOLE 2.5 MG TAB PO SCH (20:42)
[2019-05-27] MEDS: CIPROFLOXACIN-DEXAMETH 0.3-0.1% DROPS 7.5 ML BTL BOTH EARS SCH (20:42)
[2019-05-27] MEDS: LORazepam 2 MG/ML INJ IV PRN (20:43)
[2019-05-28] MEDS ORDERED: DEXAMETHASONE SOD PHOSPHATE 4 MG/ML 1 ML VIAL IV SCH
[2019-05-28] MEDS: LORazepam 2 MG/ML INJ IV PRN ×3 (00:42→23:59)
[2019-05-28] MEDS: SODIUM CHLORIDE 0.9% 1,000 ML IV SCH ×2 (05:47→21:02)
[2019-05-28] MEDS ORDERED: BENZOCAINE SPRAY 1 CAN MUCOUS MEM PRN (08:11)
[2019-05-28] MEDS ORDERED: SODIUM CHLORIDE 0.9% 1,000 ML IV ONE (08:57)
[2019-05-28] MEDS: ONDANSETRON 4 MG/2 ML VIAL IVP PRN (09:40)
[2019-05-28] MEDS: HYDROmorphone 0.5 MG/0.5 ML SYRINGE IVP PRN (09:41)
[2019-05-28] MEDS ORDERED: IV FLUID CONTINUATION 1,000 ML IV ONE (10:06)
[2019-05-28] MEDS ORDERED: BUPIVACAINE (PF) 0.25% 30 ML VIAL SQ ONE ×2 (10:08)
[2019-05-28] MEDS ORDERED: HEPARIN SODIUM,PORCINE 5,000 UNIT/ML 1 ML VIAL SQ ONE (10:13)
[2019-05-28] MEDS ORDERED: SCOPOLAMINE 1.5MG/72HR PATCH TRANSDERM ONE (10:13)
[2019-05-28] MEDS ORDERED: DEXAMETHASONE SOD PHOSPHATE 10 MG/ML 1 ML VIAL IV ONE (10:21)
--- NOTE | 2019-05-28 10:21 | P.HPADDEND ---
H&P Addendum H&P Addendum Date: 05/28/19 Benefits and risks of laparoscopic repair of incarcerated incisional hernia described. Patient was agreeable to all indicated procedures.
[2019-05-28] MEDS ORDERED: PROPOFOL 10 MG/ML 20 ML VIAL IV ONE (10:34)
[2019-05-28] MEDS ORDERED: ROCURONIUM BROMIDE 10 MG/ML 10 ML VIAL IV ONE (10:34)
[2019-05-28] MEDS ORDERED: fentaNYL (PF) 50 MCG/ML 2 ML AMP ONE (10:34)
[2019-05-28] MEDS ORDERED: LIDOCAINE 1% INJ 10MG/ML (20 ML MDV) ONE (10:34)
[2019-05-28] MEDS ORDERED: MIDAZOLAM 2 MG/2 ML VIAL ONE (10:34)
[2019-05-28] MEDS ORDERED: PHENYLEPHRINE-0.9% NACL SYG 1 MG/10 ML SYRINGE ONE (10:34)
[2019-05-28] MEDS ORDERED: ceFAZolin 1,000 MG VIAL IVPB ONE (10:56)
[2019-05-28] MEDS ORDERED: HEPARIN SODIUM,PORCINE 5,000 UNIT/ML 1 ML VIAL SQ SCH (11:00)
[2019-05-28] MEDS ORDERED: LACTATED RINGERS 1,000 ML IV ONE ×2 (11:30→13:43)
[2019-05-28] MEDS ORDERED: PROPOFOL 10 MG/ML 50 ML VIAL IV ONE (11:46)
--- NOTE | 2019-05-28 12:17 | P.OP ---
Date of Procedure: 05/28/19 Description of Procedure: SURGEON: SAMINA SEWELL MD PREOPERATIVE DIAGNOSIS: 1. Acute small bowel obstruction due to incisional hernia, left upper quadrant 2. Intractable nausea and vomiting with dehydration 3. Asthma 4. History of breast cancer with chemoradiation 5. Cerebral palsy spastic quadriplegia POSTOPERATIVE DIAGNOSIS: 1. Acute small bowel obstruction due to incisional hernia, left upper quadrant 2. Intractable nausea and vomiting with dehydration 3. Asthma 4. History of breast cancer with chemoradiation 5. Cerebral palsy spastic quadriplegia 6. Incisional hernia with incarceration without strangulation of the small intestine OPERATION: 1. Laparoscopic reduction and repair of incarcerated incisional hernia without mesh ANESTHESIA: General, local ESTIMATED BLOOD LOSS: 5 mL SPECIMENS REMOVED: NONE COMPLICATIONS: None. FINDINGS: 1. Small bowel length of 8 cm incarcerated and subcutaneous tissue trocar hernia left upper quadrant without strangulation 2. Repair performed with multiple 0 Vicryl suture and Franko Cuevas INDICATIONS: The patient is a 43-year-old female who presents with symptomatic bulge along the left upper quadrant following cholecystectomy less than 7 days ago. She reports prematurely lifting herself beyond her 10 pound restriction which caused an acute incarcerated incisional hernia with bowel obstruction. Nasogastric tube decompression was performed including IV hydration. Benefits and risks including but not limited to emergent surgical intervention for immediate reduction of the incisional hernia containing small intestine. Informed consent was obtained. DESCRIPTION: Patient was brought into the operating room, laid in supine position. After general induction, abdomen was prepped and draped in standard sterile fashion, including placement of Ioban draping. Prior to incision, a timeout protocol was performed with the surgical team, confirming the patient's name, procedure to be performed, including preoperative medications, for which she received IV antibiotics. All of her prior incisions were re-opened. A 5 mm transverse incision was made along the left upper abdomen. A 0-degree 5 mm laparoscopic trocar entry was entered into peritoneal cavity. Diagnostic laparoscopy demonstrated no injury to bowel, viscera or mesentery. The distal small bowel was dilated. Small bowel was found incarcerated in the left lateral upper quadrant incision without immediate infarction. The liver surface was unremarkable. The small bowel was unremarkable. Two other 5 mm trocars were placed along the right upper quadrant and right lateral abdominal wall. Attention was brought to the left upper quadrant. Atraumatic graspers were used to gently reduce the small bowel obstruction however given the tight incarceration within the subcutaneous tissue, her incision was re-opened directly over the small bowel incarceration. Digital palpation was used to gently apply direct pressure over the small bowel with, commitment reduction from within the abdomen. The entire small bowel was reduced at least 8 cm without infarction. The trocar defect was oversewn using multiple 0-Vicryl and Franko Cuevas for complete closure of the fascia and muscle. Valsalva technique was performed confirming complete closure of the incisional hernia defect which was 1 cm All instruments and pneumoperitoneum were removed from the abdominal cavity. Incisions were reapproximated using 4-0 Monocryl in an interrupted fashion. Exofin was applied to the skin. Optifoam was placed along the left upper quadrant hernia site. Once dried, an abdominal binder was placed. At the end of the procedure, needle, sponge and instrument count was verified correct by the surgical services manager. The patient had tolerated the procedure well and was awakened from anesthesia without sequelae. Intraoperative films were shared with the patient's family who were pleased with level of care.
[2019-05-28] MEDS ORDERED: HYDROmorphone 1 MG/ML 1 ML SYRINGE IVP ONE ×7 (13:05→13:44)
[2019-05-28] MEDS ORDERED: diphenhydrAMINE 50 MG/ML 1 ML VIAL IVP ONE (13:58)
[2019-05-28] MEDS: CIPROFLOXACIN-DEXAMETH 0.3-0.1% DROPS 7.5 ML BTL BOTH EARS SCH ×3 (14:13→21:01)
[2019-05-28] MEDS: KETOROLAC 30 MG/ML 1 ML VIAL IVP SCH ×3 (14:14→23:58)
[2019-05-28] MEDS: OXYBUTYNIN 10 MG TAB.ER.24 PO SCH (17:10)
[2019-05-28] MEDS: PANTOPRAZOLE 40 MG/10 ML VIAL IV SCH (17:16)
--- NOTE | 2019-05-28 18:46 | P.PN ---
Progress Note - Text Progress Note Date: 05/28/19 Pain is controlled. Family is at bedside. Intraoperative findings reviewed. Inpatient hospitalization until resumption of bowel function. Continue nasogastric tube until passage of flatus. Discharge home until bowel movement.
[2019-05-28] MEDS: diphenhydrAMINE 50 MG/ML 1 ML VIAL IVP PRN (18:56)
[2019-05-28] MEDS: HEPARIN SODIUM,PORCINE 5,000 UNIT/ML 1 ML VIAL SQ SCH (21:01)
[2019-05-28] MEDS: LETROZOLE 2.5 MG TAB PO SCH (21:02)
[2019-05-29] MEDS: SODIUM CHLORIDE 0.9% 1,000 ML IV SCH ×2 (05:42→18:19)
[2019-05-29] MEDS: KETOROLAC 30 MG/ML 1 ML VIAL IVP SCH ×3 (05:42→18:16)
[2019-05-29 08:11] LABS: Basophils % (A) 0 %; Eosinophils # (A) 0.1 k/uL (0-0.7); Eosinophils % (A) 1 %; Lymphocytes % (A) 29 %; MCH 28.8 pg (25.0-35.0); MCHC 33.6 g/dL (31.0-37.0); MCV 85.7 fL (80.0-100.0); Monocytes # (A) 0.5 k/uL (0-1.0); Monocytes % (A) 7 %; Neutrophils # (A) 4.3 k/uL (1.3-7.7); Neutrophils % (A) 62 %; Platelet Count 235 k/uL (150-450); RDW 12.5 % (11.5-15.5)
[2019-05-29 08:12] LABS: HGB 12.1 gm/dL (11.4-16.0)
[2019-05-29 08:13] LABS: African American GFR (CKD) >90 (>60 ml/min/1.73 sqM); Anion Gap 7 mmol/L; Blood Urea Nitrogen 9 mg/dL (7-17); Calcium 7.7 mg/dL (8.4-10.2); Carbon Dioxide 26 mmol/L (22-30); Chloride 107 mmol/L (98-107); Glucose 86 mg/dL (74-99); Non-African American GFR(CKD) >90 (>60 ml/min/1.73 sqM); Potassium 3.1 mmol/L (3.5-5.1); Sodium 140 mmol/L (137-145)
[2019-05-29] MEDS ORDERED: Potassium Replacement Protocol 1 EACH MISC MISCELLANE PRN (08:34)
[2019-05-29] MEDS: OXYBUTYNIN 10 MG TAB.ER.24 PO SCH (08:35)
[2019-05-29] MEDS: CIPROFLOXACIN-DEXAMETH 0.3-0.1% DROPS 7.5 ML BTL BOTH EARS SCH ×3 (08:43→20:21)
[2019-05-29] MEDS: PANTOPRAZOLE 40 MG/10 ML VIAL IV SCH (08:43)
[2019-05-29] MEDS: HEPARIN SODIUM,PORCINE 5,000 UNIT/ML 1 ML VIAL SQ SCH ×2 (08:43→20:21)
[2019-05-29] MEDS: POTASSIUM CHLORIDE 10 MEQ in WATER FOR INJECTION 1 100ML.BAG IVPB SCH ×6 (08:58→23:44)
[2019-05-29] MEDS: LORazepam 2 MG/ML INJ IV PRN ×2 (08:58→13:32)
--- NOTE | 2019-05-29 10:03 | P.PN ---
<GomezLima Dmitriy - Last Filed: 05/29/19 09:57> Subjective Progress Note Date: 05/29/19 CHIEF COMPLAINT: abdominal pain HISTORY OF PRESENT ILLNESS: 43-year-old female who was status post laparoscopic reduction and repair of incarcerated incisional hernia. Postop day #1. Patient examined this morning the bedside. Patient is tearful this morning and states her NG tube is bothering her. NG with 200cc output overnight and approximately 50cc this morning. Denies passing flatus. Pain is currently controlled. Blood pressure stable. Mildly tachycardic. Afebrile. WBC 7.0. Hemoglobin 12.0. K 3.1. PHYSICAL EXAM: VITAL SIGNS: Reviewed. GENERAL: Well-developed in no acute distress. Tearful. HEENT: No sclera icterus. Extraocular movements grossly intact. Moist buccal mucosa. Head is atraumatic, normocephalic. Hears conversational speech. No nasal clemente inage. NECK: Supple without lymphadenopathy. CHEST: Non-labored respirations and equal bilateral excursions. CARDIOVASCULAR: Regular rate with regular rhythm. Palpable 2+ radial pulses. ABDOMEN: Soft. Nondistended. Surgical incision site clean dry intact. Abdominal binder noted. NG tube to LIS. MUSCULOSKELETAL: No clubbing, cyanosis or edema. NEUROLOGIC: No focal or lateralizing signs. Cranial nerves II through XII grossly intact. PSYCH: Appropriate affect. Alert and oriented to person, place and time. SKIN: Well perfused. Good skin turgor. ASSESSMENT: 1. Acute small bowel obstruction due to incisional hernia, left upper quadrant 2. Intractable nausea and vomiting with dehydration 3. Asthma 4. History of breast cancer with chemoradiation 5. Cerebral palsy spastic quadriplegia 6. Incisional hernia with incarceration without strangulation of the small intestine 7. Hypokalemia PLAN: 1. Continue NG tube to LIS 2. Await bowel function 3. Hurricane spray for throat irritation secondary to NG tube 4. Ativan PRN for anxiety 5. Incentive spirometer 6. Replace potassium per protocol. Check magnesium level. Nurse practitioner note has been reviewed by physician. Signing provider agrees with the documented findings, assessment, and plan of care. Objective - Vital Signs Vital signs: Vital Signs Temp 98.3 F 05/29/19 08:09 Pulse 94 05/29/19 08:09 Resp 17 05/29/19 08:09 BP 109/73 05/29/19 08:09 Pulse Ox 94 L 05/29/19 08:09 Intake & Output 05/28/19 05/29/19 05/29/19 18:59 06:59 18:59 Intake Total 1300 Output Total 555 1000 Balance 745 -1000 Weight 77.111 kg Intake: IV 1300 Output: Gastric Drainage 550 200 Urine 800 Estimated Blood Loss 5 Other: Voiding Method Bedpan Bedpan # Voids 1 - Labs CBC & Chem 7: 05/29/19 07:22 05/29/19 07:22 Labs: Abnormal Lab Results - Last 24 Hours (Table) 05/29/19 Range/Units 07:22 Potassium 3.1 L (3.5-5.1) mmol/L Calcium 7.7 L (8.4-10.2) mg/dL <Nya Hines N - Last Filed: 05/29/19 17:55> Subjective Patient seen and evaluated. She wants to eat. She denies any passage of flatus or bowel movements. She has difficulty with ambulation with her baseline cerebral palsy which resulted in incisional hernia from noncompliance. Recommend physical therapy and occupational therapy to help with adjustment of weightbearing to minimize risk for recurrent hernias. In the interim, continue hospitalization with NG tube for bowel decompression upon return of bowel function Objective - Vital Signs Vital signs: Vital Signs Temp 98.2 F 05/29/19 15:00 Pulse 102 H 05/29/19 15:00 Resp 18 05/29/19 15:00 BP 128/84 05/29/19 15:00 Pulse Ox 96 05/29/19 15:00 Intake & Output 05/28/19 05/29/19 05/29/19 18:59 06:59 18:59 Intake Total 1300 Output Total 555 1000 Balance 745 -1000 Weight 77.111 kg Intake: IV 1300 Output: Gastric Drainage 550 200 Urine 800 Estimated Blood Loss 5 Other: Voiding Method Bedpan Bedpan Toilet # Voids 1 2 - Labs CBC & Chem 7: 05/29/19 07:22 05/29/19 07:22 Labs: Abnormal Lab Results - Last 24 Hours (Table) 05/29/19 Range/Units 07:22 Potassium 3.1 L (3.5-5.1) mmol/L Calcium 7.7 L (8.4-10.2) mg/dL Assessment and Plan (1) Incisional hernia of anterior abdominal wall with obstruction Current Visit: Yes Status: Acute Code(s): K43.0 - INCISIONAL HERNIA WITH O BSTRUCTION, WITHOUT GANGRENE SNOMED Code(s): 149268339 (2) Asthma Current Visit: No Status: Acute Code(s): J45.909 - UNSPECIFIED ASTHMA, UNCOMPLICATED SNOMED Code(s): 365523700 (3) History of breast cancer Current Visit: No Status: Acute Code(s): Z85.3 - PERSONAL HISTORY OF MALIGNANT NEOPLASM OF BREAST SNOMED Code(s): 233669239 (4) Obesity (BMI 30.0-34.9) Current Visit: No Status: Acute Code(s): E66.9 - OBESITY, UNSPECIFIED SNOMED Code(s): 750242146862961 (5) Spastic cerebral palsy Current Visit: No Status: Acute Code(s): G80.1 - SPASTIC DIPLEGIC CEREBRAL PALSY SNOMED Code(s): 362603542
[2019-05-29] MEDS: VILAZODONE HCL 40 MG PO SCH (13:23)
[2019-05-29] MEDS: HYDROmorphone 0.5 MG/0.5 ML SYRINGE IVP PRN ×2 (16:27→22:05)
[2019-05-29] MEDS: diphenhydrAMINE 50 MG/ML 1 ML VIAL IVP PRN (18:18)
[2019-05-29] MEDS: LETROZOLE 2.5 MG TAB PO SCH (23:45)
[2019-05-30] MEDS: KETOROLAC 30 MG/ML 1 ML VIAL IVP SCH ×2 (00:10→04:35)
[2019-05-30] MEDS: POTASSIUM CHLORIDE 10 MEQ in WATER FOR INJECTION 1 100ML.BAG IVPB SCH ×3 (01:31→11:01)
[2019-05-30] MEDS: SODIUM CHLORIDE 0.9% 1,000 ML IV SCH ×2 (04:35→11:07)
[2019-05-30 07:21] LABS: Magnesium 1.7 mg/dL (1.6-2.3); Potassium 3.5 mmol/L (3.5-5.1)
[2019-05-30] MEDS ORDERED: BISACODYL 10 MG SUPP RECTAL PRN (09:27)
[2019-05-30] MEDS: HEPARIN SODIUM,PORCINE 5,000 UNIT/ML 1 ML VIAL SQ SCH ×2 (10:05→22:16)
[2019-05-30] MEDS: PANTOPRAZOLE 40 MG/10 ML VIAL IV SCH (10:05)
[2019-05-30] MEDS: OXYBUTYNIN 10 MG TAB.ER.24 PO SCH (10:13)
[2019-05-30] MEDS: VILAZODONE HCL 40 MG PO SCH (10:14)
--- NOTE | 2019-05-30 10:15 | XR ---
Abdomen HISTORY: Confirm NG tube placement Two views of the abdomen on 3 images NG tube is present overlying the left upper quadrant in appropriate position. Patchy density present at the lung bases. No evident bowel obstruction or pneumoperitoneum. Bone mineralization is normal. I ncreased attenuation within the urinary bladder may be related to residual contrast administration fr om prior CT. IMPRESSION: NG tube within the stomach.
--- NOTE | 2019-05-30 10:22 | P.PN ---
<Lima oGmez Dmitriy - Last Filed: 05/30/19 10:16> Subjective Progress Note Date: 05/30/19 CHIEF COMPLAINT: abdominal pain HISTORY OF PRESENT ILLNESS: 43-year-old female who was status post laparoscopic reduction and repair of incarcerated incisional hernia. Postop day #2. Patient examined this morning the bedside with Dr. Hines. Patient denies passing flatus. Pain is currently controlled. Vital signs stable. She is afebrile. Potassium 3.5. Magnesium 1.7. She reports RN had to advance her NG tube overnight. PHYSICAL EXAM: VITAL SIGNS: Reviewed. GENERAL: Well-developed in no acute distress. HEENT: No sclera icterus. Extraocular movements grossly intact. Moist buccal mucosa. Head is atraumatic, normocephalic. Hears conversational speech. No nasal drainage. NECK: Supple without lymphadenopathy. CHEST: Non-labored respirations and equal bilateral excursions. CARDIOVASCULAR: Regular rate with regular rhythm. Palpable 2+ radial pulses. ABDOMEN: Soft. Nondistended. Surgical incision site clean dry intact. Abdominal binder noted. NG tube to LIS. MUSCULOSKELETAL: No clubbing, cyanosis or edema. NEUROLOGIC: No focal or lateralizing signs. Cranial nerves II through XII grossly intact. PSYCH: Appropriate affect. Alert and oriented to person, place and time. SKIN: Well perfused. Good skin turgor. ASSESSMENT: 1. Acute small bowel obstruction due to incisional hernia, left upper quadrant 2. Intractable nausea and vomiting with dehydration 3. Asthma 4. History of breast cancer with chemoradiation 5. Cerebral palsy spastic quadriplegia 6. Incisional hernia with incarceration without strangulation of the small intestine 7. Hypokalemia PLAN: 1. Continue NG tube to LIS 2. Await bowel function 3. Begin Reglan 10mg IV q6 hours 4. Obtain xray to verify placement of NG tube 5. PT/OT on consult 6. Replace potassium and magnesium per protocol 7. Dulcolax suppository PRN Nurse practitioner note has been reviewed by physician. Signing provider agrees with the documented findings, assessment, and plan of care. Objective - Vital Signs Vital signs: Vital Signs Temp 98.8 F 05/30/19 07:20 Pulse 96 05/30/19 08:20 Resp 17 05/30/19 08:20 BP 108/71 05/30/19 07:20 Pulse Ox 94 L 05/30/19 07:20 Intake & Output 05/29/19 05/30/19 05/30/19 18:59 06:59 18:59 Intake Total 1100 Output Total 150 Balance -150 1100 Intake: Intake, IV Titration 1100 Amount Potassium Chloride 10 meq 200 In Water For Injection 1 100ml.bag @ 100 mls/hr IVPB Q1HR KEITH Rx#: [id number] Sodium Chloride 0.9% 1, 900 000 ml @ 100 mls/hr IV . Q10H KEITH Rx#:[id number] Output: Gastric Drainage 150 Other: Voiding Method Toilet Toilet Toilet # Voids 2 1 - Labs CBC & Chem 7: 05/29/19 07:22 05/30/19 06:05 Labs: Abnormal Lab Results - Last 24 Hours (Table) 05/29/19 Range/Units 21:12 Potassium 3.4 L (3.5-5.1) mmol/L <Nya Hines - Last Filed: 05/30/19 17:11> Subjective Long discussion made with patient with her history of spastic quadriplegia including moderate lifting over 10 pounds instruction as given prior. Recommend physical therapy to help with ambulation including stairs and movement. Otherwise, bowel function slowly resuming. Await flatus. May discontinue nasogastric tube after flatus or bowel movement. Objective - Vital Signs Vital signs: Vital Signs Temp 98.5 F 05/30/19 15:00 Pulse 97 05/30/19 15:00 Resp 16 05/30/19 15:00 BP 105/69 05/30/19 15:00 Pulse Ox 94 L 05/30/19 15:00 Intake & Output 05/29/19 05/30/19 05/30/19 18:59 06:59 18:59 Intake Total 1100 Output Total 150 Balance -150 1100 Weight 77.111 kg Intake: Intake, IV Titration 1100 Amount Potassium Chloride 10 meq 200 In Water For Injection 1 100ml.bag @ 100 mls/hr IVPB Q1HR KIETH Rx#: [id number] Sodium Chloride 0.9% 1, 900 000 ml @ 100 mls/hr IV . Q10H KEITH Rx#:[id number] Output: Gastric Drainage 150 Other: Voiding Method Toilet Toilet Toilet # Voids 2 1 1 - Labs CBC & Chem 7: 05/29/19 07:22 05/30/19 06:05 Labs: Abnormal Lab Results - Last 24 Hours (Table) 05/29/19 Range/Units 21:12 Potassium 3.4 L (3.5-5.1) mmol/L Assessment and Plan (1) Incisional hernia of anterior abdominal wall with obstruction Current Visit: Yes Status: Acute Code(s): K43.0 - INCISIONAL HERNIA WITH OBSTRUCTION, WITHOUT GANGRENE SNOMED Code(s): 839287234 (2) Asthma Current Visit: No Status: Acute Code(s): J45.909 - UNSPECIFIED ASTHMA, UNCOMPLICATED SNOMED Code(s): 987265007 (3) History of breast cancer Current Visit: No Status: Acute Code(s): Z85.3 - PERSONAL HISTORY OF MALIGN ANT NEOPLASM OF BREAST SNOMED Code(s): 719093999 (4) Obesity (BMI 30.0-34.9) Current Visit: No Status: Acute Code(s): E66.9 - OBESITY, UNSPECIFIED SNOMED Code(s): 661084402752630 (5) Spastic cerebral palsy Current Visit: No Status: Acute Code(s): G80.1 - SPASTIC DIPLEGIC CEREBRAL PALSY SNOMED Code(s): 501865589
[2019-05-30] MEDS: CIPROFLOXACIN-DEXAMETH 0.3-0.1% DROPS 7.5 ML BTL BOTH EARS SCH ×3 (10:33→22:25)
[2019-05-30] MEDS: METOCLOPRAMIDE 5 MG/ML 2 ML VIAL IVP SCH ×3 (11:08→23:40)
[2019-05-30] MEDS: MAGNESIUM SULFATE-D5W PMX 1 GM in DEXTROSE/WATER 1 100ML.BAG IVPB SCH ×2 (11:08→12:08)
[2019-05-30] MEDS: ONDANSETRON 4 MG/2 ML VIAL IVP PRN (11:20)
[2019-05-30 12:55] VITALS: BMI 32.1
[2019-05-30] MEDS: HYDROmorphone 0.5 MG/0.5 ML SYRINGE IVP PRN (15:41)
[2019-05-30] MEDS: LETROZOLE 2.5 MG TAB PO SCH (22:15)
[2019-05-30] MEDS: LORazepam 2 MG/ML INJ IV PRN (22:19)
[2019-05-31] MEDS: SODIUM CHLORIDE 0.9% 1,000 ML IV SCH ×3 (01:30→17:03)
[2019-05-31] MEDS: METOCLOPRAMIDE 5 MG/ML 2 ML VIAL IVP SCH ×3 (06:24→17:03)
[2019-05-31] MEDS: CIPROFLOXACIN-DEXAMETH 0.3-0.1% DROPS 7.5 ML BTL BOTH EARS SCH ×3 (07:28→21:56)
[2019-05-31] MEDS: HEPARIN SODIUM,PORCINE 5,000 UNIT/ML 1 ML VIAL SQ SCH ×2 (07:28→21:53)
[2019-05-31] MEDS: OXYBUTYNIN 10 MG TAB.ER.24 PO SCH (07:28)
[2019-05-31] MEDS: VILAZODONE HCL 40 MG PO SCH (07:29)
[2019-05-31] MEDS: PANTOPRAZOLE 40 MG/10 ML VIAL IV SCH (07:29)
--- NOTE | 2019-05-31 13:57 | P.PN ---
Subjective Progress Note Date: 05/31/19 Principal diagnosis: Incisional hernia Patient doing better today. Tolerating clear liquids. She is passing flatus. No bowel movement. She is hungry. No nausea or vomiting. Objective - Vital Signs Vital signs: Vital Signs Temp 98.7 F 05/31/19 07:00 Pulse 100 05/31/19 07:00 Resp 16 05/31/19 07:20 BP 102/69 05/31/19 07:00 Pulse Ox 94 L 05/31/19 07:00 Intake & Output 05/30/19 05/31/19 05/31/19 18:59 06:59 18:59 Output Total 350 300 Balance -350 -300 Weight 77.111 kg Output: Gastric Drainage 350 Urine 300 Other: Voiding Method Toilet Toilet # Voids 1 1 - Exam Abdomen: Soft, nondistended, incision clean and dry - Labs CBC & Chem 7: 05/29/19 07:22 05/30/19 06:05 Assessment and Plan (1) Bowel obstruction Narrative/Plan: Patient doing better at this time. We'll advance to full liquids. Continue amb ulation. Current Visit: Yes Status: Acute Code(s): K56.609 - UNSP INTESTNL OBST, UNSP TO PARTIAL VERSUS COMPLETE OBST SNOMED Code(s): 78499226
[2019-05-31] MEDS: diphenhydrAMINE 50 MG/ML 1 ML VIAL IVP PRN (16:07)
[2019-05-31] MEDS ORDERED: HYDROCORTISONE 1% CREAM 30 GM TUBE TOPICAL PRN (16:13)
[2019-05-31] MEDS: LORazepam 2 MG/ML INJ IV PRN (17:00)
[2019-05-31] MEDS: LETROZOLE 2.5 MG TAB PO SCH (21:53)
[2019-06-01] MEDS: METOCLOPRAMIDE 5 MG/ML 2 ML VIAL IVP SCH ×5 (00:25→23:06)
[2019-06-01] MEDS: SODIUM CHLORIDE 0.9% 1,000 ML IV SCH ×3 (00:29→21:35)
[2019-06-01] MEDS: VILAZODONE HCL 40 MG PO SCH (07:12)
[2019-06-01] MEDS: PANTOPRAZOLE 40 MG/10 ML VIAL IV SCH (07:13)
[2019-06-01] MEDS: HEPARIN SODIUM,PORCINE 5,000 UNIT/ML 1 ML VIAL SQ SCH ×2 (07:13→21:31)
[2019-06-01] MEDS: OXYBUTYNIN 10 MG TAB.ER.24 PO SCH (07:13)
[2019-06-01] MEDS: CIPROFLOXACIN-DEXAMETH 0.3-0.1% DROPS 7.5 ML BTL BOTH EARS SCH ×3 (07:14→21:31)
--- NOTE | 2019-06-01 09:43 | P.PN ---
Subjective Progress Note Date: 06/01/19 Principal diagnosis: Incisional hernia Patient feels well today. No bowel movement. Still passing flatus. Denies nausea or vomiting. Once solid foods. Objective - Vital Signs Vital signs: Vital Signs Temp 98.0 F 06/01/19 07:00 Pulse 91 06/01/19 07:00 Resp 16 06/01/19 07:00 BP 128/94 06/01/19 07:00 Pulse Ox 95 06/01/19 07:00 Intake & Output 05/31/19 06/01/19 06/01/19 18:59 06:59 18:59 Intake Total 620 118 Balance 620 118 Intake: Intake, IV Titration 600 Amount Sodium Chloride 0.9% 1, 600 000 ml @ 100 mls/hr IV . Q10H [facility] Rx#:[id number] Oral 20 118 Other: Voiding Method Toilet Toilet # Voids 4 1 1 - Exam Abdomen: Soft, nondistended, incision clean and dry, mild tenderness - Labs CBC & Chem 7: 05/29/19 07:22 05/30/19 06:05 Assessment and Plan (1) Bowel obstruction Narrative/Plan: Continue ambulation. Will advance diet. Probable discharge tomorrow. Current Visit: Yes Status: Acute Code(s): K56.609 - UNSP INTESTNL OBST, UNSP TO PARTIAL VERSUS COMPLETE OBST SNOMED Code(s): 52709925
[2019-06-01 19:41] VITALS: RESP 12
[2019-06-01] MEDS: LETROZOLE 2.5 MG TAB PO SCH (21:31)
[2019-06-01] MEDS: LORazepam 2 MG/ML INJ IV PRN (22:55)
[2019-06-02] MEDS: METOCLOPRAMIDE 5 MG/ML 2 ML VIAL IVP SCH ×2 (05:44→11:23)
[2019-06-02] MEDS ORDERED: MAGNESIUM HYDROXIDE 2,400 MG/10 ML CUP PO ONE (08:23)
[2019-06-02 08:49] VITALS: BP 109/66; PULSE 80; TEMP 98.2
[2019-06-02] MEDS: PANTOPRAZOLE 40 MG/10 ML VIAL IV SCH ×2 (09:02→09:06)
[2019-06-02] MEDS: VILAZODONE HCL 40 MG PO SCH (09:02)
[2019-06-02] MEDS: HEPARIN SODIUM,PORCINE 5,000 UNIT/ML 1 ML VIAL SQ SCH (09:03)
[2019-06-02] MEDS: OXYBUTYNIN 10 MG TAB.ER.24 PO SCH (09:03)
[2019-06-02] MEDS: CIPROFLOXACIN-DEXAMETH 0.3-0.1% DROPS 7.5 ML BTL BOTH EARS SCH (09:04)
[2019-06-02] MEDS ORDERED: BISACODYL 10 MG SUPP RECTAL STA (09:58)
--- NOTE | 2019-06-02 10:32 | P.DS ---
Providers Date of admission: 05/27/19 13:58 Expected date of discharge: 06/02/19 Attending physician: Nya Hines Primary care physician: [facility] Hospital Course: 43-year-old female who underwent laparoscopic reduction and repair of incarcerated incisional hernia with Dr. Hines on 05/28/2019. Patient is doing well postoperatively without any immediate complications. She is tolerating diet without nausea or vomiting. Passing flatus. Pain is controlled on oral medications. Vital signs are stable. She is stable for discharge home today. Please see EMR for further hospital course details. Discharge Diagnosis: 1. Acute small bowel obstruction due to incisional hernia, left upper quadrant 2. Intractable nausea and vomiting with dehydration 3. Asthma 4. History of breast cancer with chemoradiation 5. Cerebral palsy spastic quadriplegia 6. Incisional hernia with incarceration without strangulation of the small intestine 7. Hypokalemia Nurse practitioner note has been reviewed by physician. Signing provider agrees with the documented findings, assessment, and plan of care. Patient Condition at Discharge: Stable Plan - Discharge Summary Discharge Rx Participant: No New Discharge Prescriptions: No Action LORazepam [Ativan] 1 mg PO TID PRN PRN Reason: Anxiety Ciprofloxacin/Hydrocortisone [Cipro Hc Otic Suspension] 3 drops BOTH EARS TID Albuterol Inhaler [Ventolin Hfa Inhaler] 1 - 2 puff INHALATION RT-Q6H PRN #1 inhaler PRN Reason: Shortness Of Breath Oxybutynin Chloride [Ditropan XL] 10 mg PO DAILY Potassium Chloride [K-Tab ER] 20 meq PO DAILY Letrozole [Femara] 2.5 mg PO HS Zoladex 1 dose INJ Q30D Zoledronic Acid [Zometa] 1 dose IV Q6M Ibuprofen [Motrin] 600 mg PO Q8HR PRN #30 tab PRN Reason: Pain Simethicone 40 mg/0.6 ml Drops [Mylicon Drops] 40 mg PO Q6HR PRN #30 ml PRN Reason: Abdominal Distention Acetaminophen Tab [Tylenol Tab] 500 mg PO Q6H PRN #30 tablet PRN Reason: Pain Vilazodone HCl [Viibryd] 40 mg PO DAILY Discharge Medication List LORazepam [Ativan] 1 mg PO TID PRN 07/10/14 [History] Ciprofloxacin/Hydrocortisone [Cipro Hc Otic Suspension] 3 drops BOTH EARS TID 12/30/15 [History] Albuterol Inhaler [Ventolin Hfa Inhaler] 1 - 2 puff INHALATION RT-Q6H PRN #1 inhaler 03/20/19 [Rx] Letrozole [Femara] 2.5 mg PO HS 05/21/19 [History] Oxybutynin Chloride [Ditropan XL] 10 mg PO DAILY 05/21/19 [History] Potassium Chloride [K-Tab ER] 20 meq PO DAILY 05/21/19 [History] Zoladex 1 dose INJ Q30D 05/21/19 [History] Zoledronic Acid [Zometa] 1 dose IV Q6M 05/21/19 [History] Acetaminophen Tab [Tylenol Tab] 500 mg PO Q6H PRN #30 tablet 05/23/19 [Rx] Ibuprofen [Motrin] 600 mg PO Q8HR PRN #30 tab 05/23/19 [Rx] Simethicone 40 mg/0.6 ml Drops [Mylicon Drops] 40 mg PO Q6HR PRN #30 ml 05/23/19 [Rx] Vilazodone HCl [Viibryd] 40 mg PO DAILY 05/27/19 [History] Follow up Appointment(s)/Referral(s): Nya Hines MD [Family Provider] - 1 Week Js Elliott DO [Primary Care Provider] - 1-2 days Activity/Diet/Wound Care/Special Instructions: patient home med in [facility].
[2019-06-02] MEDS ORDERED: diphenhydrAMINE 25 MG CAP PO STA (11:17)
[2019-06-02] MEDS ORDERED: diphenhydrAMINE 25 MG CAP PO PRN (12:28)
[2019-06-03] MEDS ORDERED: PANTOPRAZOLE 40 MG TABLET PO SCH (09:00)
== END 2019-06-02 13:14 | disposition home health service (06) | DRG 353 ==
LOC: EC 11:14 → 4SSUR 13:58
PROVIDERS: ADMIT Surgery Plastic and Reconstructive Surgery; ATTEND Surgery Plastic and Reconstructive Surgery
PROC: 0WQF4ZZ Repair Abdominal Wall, Percutaneous Endoscopic Approach (ICD-10-PCS; principal; 2019-05-28 08:45)
DX: K43.0 Incisional hernia with obstruction, without gangrene (principal); G80.0 Spastic quadriplegic cerebral palsy; E87.6 Hypokalemia; E66.9 Obesity, unspecified; F41.9 Anxiety disorder, unspecified; J45.909 Unspecified asthma, uncomplicated; E86.0 Dehydration; Z90.89 Acquired absence of other organs; Z98.890 Other specified postprocedural states; Z68.32 Body mass index [BMI] 32.0-32.9, adult; Z90.49 Acquired absence of other specified parts of digestive tract; Z80.9 Family history of malignant neoplasm, unspecified; Z88.8 Allergy status to other drugs, medicaments and biological substances; Z91.041 Radiographic dye allergy status; Z85.3 Personal history of malignant neoplasm of breast; Z91.19 Patient's noncompliance with other medical treatment and regimen; Z91.81 History of falling
CPT/HCPCS: 36415; 74018; 74019; 74177; 80048; 80053; 81001; 81025; 82150; 83690; 83735; 84132; 85025; 85610; 85730; 94002; 96361; 96374; 96375; 96376; 99285

== ENCOUNTER 2020-01-11 14:35 | Emergency (ER) | payer OTHER ==
--- NOTE | 2020-01-11 14:53 | ED ---
General Adult HPI - General Chief complaint: Extremity Injury, Lower Stated complaint: Fall - L Ankle Injury Time Seen by Provider: 01/11/20 14:45 Source: patient Mode of arrival: wheelchair Limitations: no limitations - History of Present Illness Initial comments: Dictation was produced using [employer] dictation software. please excuse any grammatical, word or spelling errors. This patient was cared for during a federal and state declared state of emergency secondary to Covid 19 Chief Complaint: 44-year-old female presents with foot pain. History of Present Illness: 44-year-old female presents with left foot pain. Patient states she slipped on her crutches. She doesn't remember however she remembers getting up noting that she has lateral left foot pain. Patient states the event happened last night. Patient states that she has pain whenever she bears weight. She sees worse of her pain is to the lateral midfoot The ROS documented in this emergency department record has been reviewed and confirmed by me. Those systems with pertinent positive or negative responses have been documented in the HPI. All other systems are other negative and/or noncontributory. PHYSICAL EXAM: General Impression: Alert and oriented x3, not in acute distress HEENT: Normocephalic atraumatic, extra-ocular movements intact, pupils equal and reactive to light bilaterally, mucous membranes moist. Cardiovascular: Heart regular rate and rhythm Chest: Able to complete full sentences, no retractions, no tachypnea Abdomen: abdomen soft, non-tender, non-distended, no organomegaly Musculoskeletal: Pulses present and equal in all extremities, no peripheral edema Left foot: Tenderness to palpation over the left lateral foot, no midfoot ten derness no skin changes Motor: no focal deficits noted Neurological: CN II-XII grossly intact, no focal motor or sensory deficits noted Skin: Intact with no visualized rashes Psych: Normal affect and mood ED course: 44-year-old female presents with left foot pain after fall. Vital signs upon arrival are within acceptable limits. Left foot x-ray is unremarkable. Patient is counseled on weightbearing as tolerated. Patient will be discharged. - Related Data Home Medications Medication Instructions Recorded Confirmed LORazepam [Ativan] 1 mg PO TID PRN 07/10/14 05/27/19 Ciprofloxacin/Hydrocortisone 3 drops BOTH EARS TID 12/30/15 05/27/19 [Cipro Hc Otic Suspension] Letrozole [Femara] 2.5 mg PO HS 05/21/19 05/27/19 Oxybutynin Chloride [Ditropan XL] 10 mg PO DAILY 05/21/19 05/27/19 Potassium Chloride [K-Tab ER] 20 meq PO DAILY 05/21/19 05/27/19 Zoladex 1 dose INJ Q30D 05/21/19 05/27/19 Zoledronic Acid [Zometa] 1 dose IV Q6M 05/21/19 05/27/19 Vilazodone HCl [Viibryd] 40 mg PO DAILY 05/27/19 05/29/19 Previous Rx's Medication Instructions Recorded Albuterol Inhaler (Mhu) [Ventolin 1 - 2 puff INHALATION RT-Q6H PRN 03/20/19 Hfa Inhaler (Mhu)] #1 inhaler Acetaminophen Tab [Tylenol Tab] 500 mg PO Q6H PRN #30 tablet 05/23/19 Ibuprofen [Motrin] 600 mg PO Q8HR PRN #30 tab 05/23/19 Simethicone 40 mg/0.6 ml Drops 40 mg PO Q6HR PRN #30 ml 05/23/19 [Mylicon Drops] Acetaminophen Tab [Tylenol Tab] 650 mg PO Q4H PRN #30 tablet 06/02/19 Docusate [Colace] 100 mg PO BID #30 capsule 06/02/19 Allergies Allergy/AdvReac Type Severity Reaction Status Date / Time chlorhexidine Allergy Rash/Hives Verified 01/11/20 14:41 Iodinated Contrast Media Allergy Rash/Hives Verified 01/11/20 14:41 succinylcholine AdvReac Severe EXACERBATED Verified 01/11/20 14:41 SPASTICITY IN LEGS Review of Systems ROS Statement: Those systems with pertinent positive or pertinent negative responses have been documented in the HPI. ROS Other: All systems not noted in ROS Statement are negative. Past Medical History Past Medical History: Asthma, Cancer, Neurologic Disorder, Pneumonia, Thyroid Disorder Additional Past Medical History / Comment(s): HAS CP. spastic quadraplegic uses forearm crutches is fall risk, EXERCISE INDUCED ASTHMA MILD. not currently taking thyroid medication, breast cancer rt 04/27/16 with chemo and radiation, chronic ear infections History of Any Multi-Drug Resistant Organisms: None Reported Past Surgical History: Cholecystectomy, Ear Surgery, Orthopedic Surgery, Tonsillectomy Additional Past Surgical History / Comment(s): BMT X2. ORIF RT LEG, W/ SUMANTH, SCREWS. TENDON LENGTHENING IN FEET, LEGS., R sided lumpectomy with sentinel lymph node removal Past Anesthesia/Blood Transfusion Reactions: Previous Problems w/ Anesthesia Additional Past Anesthesia/Blood Transfusion Reaction / Comment(s): SUCCINYLCHOLINE GREATLY INCREASES SPASTICITY LEGS. Past Psychological History: Anxiety Smoking Status: Former smoker Past Alcohol Use History: None Reported Past Drug Use History: None Reported - Past Family History Mother Family Medical History: Cancer General Exam Limitations: no limitations Course Vital Signs 01/11/20 01/11/20 14:41 15:42 Temperature 98.4 F Pulse Rate 100 111 H Respiratory 18 12 Rate Blood Pressure 129/82 121/80 O2 Sat by Pulse 97 97 Oximetry Disposition Clinical Impression: Foot contusion Disposition: HOME SELF-CARE Condition: Good Instructions (If sedation given, give patient instructions): Foot Contusion (ED) Is patient prescribed a controlled substance at d/c from ED?: No Referrals: Js Elliott DO [Primary Care Provider] - 1-2 days Time of Disposition: 16:02
--- NOTE | 2020-01-11 15:31 | XR ---
EXAMINATION TYPE: XR foot complete LT DATE OF EXAM: 01/11/2020 COMPARISON: NONE HISTORY: Pain TECHNIQUE: 3 views FINDINGS: There is soft tissue swelling of the forefoot. Metatarsals appear intact. I see no fracture nor dislocation. IMPRESSION: Soft tissue swelling. No fracture seen.
[2020-01-11 15:42] VITALS: BP 121/80; PULSE 111; RESP 12
[2020-01-11] MEDS ORDERED: ACET/COD 300 MG/30 MG STARTER PACK 6 TAB BTL PO STA (16:05)
--- NOTE | 2020-01-11 16:06 | ED ---
Disposition Clinical Impression: Foot contusion Disposition: HOME SELF-CARE Condition: Good Instructions (If sedation given, give patient instructions): Foot Contusion (ED) Is patient prescribed a controlled substance at d/c from ED?: No Referrals: Jhon Mane DO [Medical Doctor] - 1-2 days
[2020-01-11 16:38] VITALS: TEMP 97.9
== END 2020-01-11 16:37 | disposition home or self-care (01) ==
LOC: EC 14:35
DX: S90.32XA Contusion of left foot, initial encounter (principal); F41.9 Anxiety disorder, unspecified; Z79.899 Other long term (current) drug therapy; Z88.8 Allergy status to other drugs, medicaments and biological substances; Z91.041 Radiographic dye allergy status; Z87.891 Personal history of nicotine dependence; W01.0XXA Fall on same level from slipping, tripping and stumbling without subsequent striking against object, initial encounter
CPT/HCPCS: 99283

== ENCOUNTER → 2020-02-27 | Outpatient (CLI) | payer OTHER | END | disposition home or self-care (01) | LOC: LABWHC1 09:59 | PROVIDERS: ATTEND Family Medicine | DX: Z03.818 Encounter for observation for suspected exposure to other biological agents ruled out (principal) | CPT/HCPCS: U0003; C9803 ==

== ENCOUNTER → 2020-08-24 | Outpatient (CLI) | payer OTHER ==
[2020-08-25 00:13] LABS: Basophils # (A) 0.05 X 10*3/uL (0.00-0.10); Basophils % (A) 0.9 %; Eosinophils # (A) 0.32 X 10*3/uL (0.04-0.35); Eosinophils % (A) 5.5 %; HCT 44.6 % (37.2-46.3); HGB 14.1 g/dL (12.0-15.0); Lymphocytes # (A) 2.26 X 10*3/uL (0.90-5.00); Lymphocytes % (A) 38.5 %; MCH 27.5 pg (27.0-32.0); MCHC 31.6 g/dL (32.0-37.0); MCV 87.1 fL (80.0-97.0); Mean Platelet Volume 10.4 fL (9.5-12.2); Monocytes # (A) 0.54 X 10*3/uL (0.20-1.00); Monocytes % (A) 9.2 %; Neutrophils # (A) 2.68 X 10*3/uL (1.80-7.70); Neutrophils % (A) 45.6 %; Platelet Count 262 X 10*3/uL (140-440); RBC 5.12 X 10*6/uL (4.10-5.20); WBC 5.87 X 10*3/uL (4.50-10.00)
[2020-08-25 13:35] LABS: African American GFR (CKD) 88.9 (60.0-200.0); Albumin 4.6 g/dL (3.80-4.90); BUN/Creat Ratio 13.33 Ratio (12.00-20.00); Calcium 9.6 mg/dL (8.7-10.3); Globulin 2.3 g/dL (1.6-3.3); Non-African American GFR(CKD) 76.7 (60.0-200.0); Total Bilirubin 0.4 mg/dL (0.3-1.2); Total Protein 6.9 g/dL (6.2-8.2)
== END | disposition home or self-care (01) ==
LOC: LABWHC1 15:20
PROVIDERS: ATTEND Internal Medicine Medical Oncology
DX: C50.911 Malignant neoplasm of unspecified site of right female breast (principal)
CPT/HCPCS: 36415; 80053; 85025

== ENCOUNTER → 2021-07-13 | Outpatient (CLI) | payer OTHER ==
--- NOTE | 2021-07-13 12:44 | CT ---
EXAMINATION TYPE: CT abdomen pelvis w con DATE OF EXAM: 07/13/2021 COMPARISON: HISTORY: abdominal pain CT DLP: 1538.1 mGycm Automated exposure control for dose reduction was used. TECHNIQUE: Helical acquisition of images from the lung bases through the pelvis have been completed. CONTRAST: Performed with Oral Contrast and with IV Contrast, patient injected with 100 mL of Isovue 300. FINDINGS: Umbilical hernia contains fat. Thickened gastric wall is indeterminate likely due to lack o f distention. LUNG BASES: No significant abnormality is appreciated. AORTA: No significant abnormality is appreciated. LIVER/GB: Probable hemangioma noted within the right lobe of the liver, suggestion of nodular enhance ment which fills in on delayed images as on prior exam. Patient is post cholecystectomy. Low-attenuat ion of the liver likely due to hepatic steatosis. PANCREAS: No significant abnormality is seen. SPLEEN: No significant abnormality is seen. ADRENALS: No significant abnormality is seen. KIDNEYS: No significant abnormality is seen. REPRODUCTIVE ORGANS: No significant abnormality is seen BOWEL: No significant abnormality is seen. Appendix is normal. FREE AIR: No Free Air visible. ASCITES: None visible. PELVIC ADENOPATHY: None visualized. RETROPERITONEAL ADENOPATHY: No Retroperitoneal Adenopathy visible. URINARY BLADDER: No significant abnormality is seen. OSSEOUS STRUCTURES: No significant abnormality is seen. IMPRESSION: NO ABNORMALITY EVIDENT TO ACCOUNT FOR PATIENT'S SYMPTOMS. ADDITIONAL FINDINGS ABOVE.
== END | disposition home or self-care (01) ==
LOC: RADCTMAIN 10:58
PROVIDERS: ATTEND Surgery Plastic and Reconstructive Surgery
DX: K56.609 Unspecified intestinal obstruction, unspecified as to partial versus complete obstruction (principal)
CPT/HCPCS: 74177; Q9967

== ENCOUNTER 2021-09-01 08:18 | Day surgery (SDC) | payer OTHER ==
[2021-08-31 09:16] VITALS: BMI 35.9
[~2021-09-01 08:18] MED LIST changes: -ACETAMINOPHEN TAB 500 MG TAB PO STA; -DEXAMETHASONE SOD PHOSPHATE 10 MG/ML 1 ML VIAL IV ONE; -HEPARIN SODIUM,PORCINE 5,000 UNIT/ML 1 ML VIAL SQ ONE; -HYDROmorphone 0.5 MG/0.5 ML SYRINGE IVP PRN; -INDOCYANINE GREEN 25 MG VIAL IV ONE; +LIDOCAINE 1% (10MG/ML) FOR IV START INTRADERMA PRN; -LIDOCAINE 1% 20 ML VIAL (10MG/ML) FOR IV START INTRADERMA PRN; -ONDANSETRON 4 MG/2 ML VIAL IVP ONE
--- NOTE | 2021-09-01 08:23 | P.GSHP ---
History of Present Illness H&P Date: 09/01/21 CHIEF COMPLAINT: GERD and colitis HISTORY OF PRESENT ILLNESS: The patient is a 46-year-old female who presents with gastroesophageal reflux disease and colitis. Upper and lower endoscopy were offered for further evaluation and management. PAST MEDICAL HISTORY: Please see list. PAST SURGICAL HISTORY: Please see list. MEDICATIONS: Please see list. ALLERGIES: Please see list. SOCIAL HISTORY: No illicit drug use FAMILY HISTORY: No reports of Crohn disease or ulcerative colitis. REVIEW OF ORGAN SYSTEMS: CONSTITUTIONAL: No reports of fevers or chills. GI: Has diarrhea with colitis PHYSICAL EXAM: VITAL SIGNS: Stable GENERAL: Well-developed pleasant in no acute distress. HEENT: No scleral icterus. Extraocular movements grossly intact. Moist buccal mucosa. NECK: Supple without lymphadenopathy. CHEST: Unlabored respirations. Equal bilateral excursions. CARDIOVASCULAR: Regular rate and rhythm. Distal 2+ pulses. ABDOMEN: Soft, nondistended. MUSCULOSKELETAL: No clubbing, cyanosis, or edema. ASSESSMENT: 1. Gastroesophageal reflux disease 2. Colitis PLAN: 1. Recommend proceeding with an upper and lower endoscopy Past Medical History Past Medical History: Asthma, Cancer, Neurologic Disorder, Pneumonia, Thyroid Disorder Additional Past Medical History / Comment(s): HAS CP. spastic quadraplegic uses forearm crutches is fall risk, EXERCISE INDUCED ASTHMA MILD. not currently taking thyroid medication, breast cancer rt 04/27/16 with chemo and radiation, chronic ear infections , CURRENTLY HAS UTI-ON ANTIBIOTICS, CHRONIC DIARRHEA AND REFLUX History of Any Multi-Drug Resistant Organisms: ESBL Date of last positivie culture/infection: 03/09/20 MDRO Source:: ESBL URINE Past Surgical History: Cholecystectomy, Ear Surgery, Orthopedic Surgery, Tonsillectomy Additional Past Surgical History / Comment(s): BMT X2. ORIF RT LEG, W/ SUMANTH, SCREWS. TENDON LENGTHENING IN FEET, LEGS., R sided lumpectomy with sentinel lymph node removal, COLONOSCOPY, Past Anesthesia/Blood Transfusion Reactions: Previous Problems w/ Anesthesia Additional Past Anesthesia/Blood Transfusion Reaction / Comment(s): SUCCINYLCHOLINE GREATLY INCREASES SPASTICITY LEGS. Smoking Status: Never smoker - Past Family History Mother Family Medical History: Cancer Medications and Allergies Home Medications Medication Instructions Recorded Confirmed Type LORazepam [Ativan] 1 mg PO TID PRN 07/10/08/31/21 History Albuterol Inhaler (Mhu) [Ventolin 1 - 2 puff INHALATION RT-Q6H PRN 03/20/19 08/31/21 Rx Hfa Inhaler ([facility] [place])] #1 inhaler Letrozole [Femara] 2.5 mg PO HS 05/21/19 08/31/21 History Oxybutynin Chloride [Ditropan XL] 10 mg PO DAILY 05/21/19 08/31/21 History Potassium Chloride [K-Tab ER] 20 meq PO DAILY 05/21/19 08/31/21 History Zoladex 1 dose INJ Q30D 05/21/19 08/31/21 History Zoledronic Acid [Zometa] 1 dose IV Q6M 05/21/19 08/31/21 History Ibuprofen [Motrin] 600 mg PO Q8HR PRN #30 tab 05/23/19 08/31/21 Rx Vilazodone HCl [Viibryd] 40 mg PO DAILY 05/27/19 08/31/21 History Docusate [Colace] 100 mg PO BID #30 capsule 06/02/19 08/31/21 Rx Nitrofurantoin Monohyd/M-Cryst 100 mg PO Q12HR 08/31/21 08/31/21 History [Macrobid] Allergies Allergy/AdvReac Type Severity Reaction Status Date / Time chlorhexidine Allergy Rash/Hives Verified 08/31/21 09:00 Iodinated Contrast Media Allergy Rash/Hives Verified 08/31/21 09:00 succinylcholine AdvReac Severe EXACERBATED Verified 08/31/21 09:00 SPASTICITY IN LEGS
[2021-09-01 08:56] VITALS: TEMP 97
[2021-09-01] MEDS ORDERED: PROPOFOL 10 MG/ML 20 ML VIAL IV ONE (09:21)
[2021-09-01] MEDS ORDERED: LIDOCAINE 2% INJ 20 MG/ML (2 ML VIAL) ONE (09:21)
[2021-09-01] MEDS ORDERED: fentaNYL (PF) 50 MCG/ML 2 ML AMP ONE (09:21)
[2021-09-01] MEDS ORDERED: MIDAZOLAM 2 MG/2 ML VIAL ONE (09:21)
[2021-09-01 09:55] VITALS: RESP 16
[2021-09-01 10:10] VITALS: BP 129/86; PULSE 92
--- NOTE | 2021-09-01 10:54 | P.PCN ---
Date of Procedure: 09/01/21 Description of Procedure: PREOPERATIVE DIAGNOSIS: Colitis with change in bowel habits POSTOPERATIVE DIAGNOSIS: Colitis with change in bowel habits OPERATION: Colonoscopy to the cecum, ileocecal valve and appendiceal orifice. Colonoscopy with random cold forceps biopsies SURGEON: Nya Hines MD. ANESTHESIA: MAC. INDICATIONS: The patient is a 46-year-old female who presents with change in bowel habits and colitis.. Benefits and risks were described and informed consent was obtained. DESCRIPTION OF PROCEDURE: The patient had undergone Sutab prep. The patient had been brought into the operating room and laid in the left lateral decubitus position. After adequate intravenous sedation, the rectum was examined with 2% lidocaine jelly. No external hemorrhoids were encountered. The rectal tone was within normal limits. No lesions were palpated in the rectal vault. An Olympus colonoscope was advanced until the cecum, ileocecal valve and appendiceal orifice were clearly viewed. The prep was excellent. No scattered diverticulosis was encountered. No colonic polyps were found. Random cold forceps biopsies were obtained for microscopic colitis. Retroflexion of the scope demonstrated grade 1 internal hemorrhoids without active bleeding or inflammation. The colon was desufflated. The patient had tolerated the procedure well. Withdrawal time was over 6 minutes. FINDINGS: Aronchick preparation quality scale 1 (1-5) Internal hemorrhoids, grade 1 No external prolapsed hemorrhoids. No arteriovenous malformations. No adenomatous polyps. Random biopsies obtained for colitis. RECOMMENDATIONS: Repeat lower endoscopy in 5 years, 2026 Plan - Discharge Summary Discharge Rx Participant: No New Discharge Prescriptions: New Omeprazole [PriLOSEC] 40 mg PO DAILY #14 cap Continue LORazepam [Ativan] 1 mg PO TID PRN PRN Reason: Anxiety Albuterol Inhaler (Mhu) [Ventolin Hfa Inhaler ([facility]hu)] 1 - 2 puff INHALATION RT-Q6H PRN #1 inhaler PRN Reason: Shortness Of Breath Oxybutynin Chloride [Ditropan XL] 10 mg PO DAILY Potassium Chloride [K-Tab ER] 20 meq PO DAILY Letrozole [Femara] 2.5 mg PO HS Zoladex 1 dose INJ Q30D Zoledronic Acid [Zometa] 1 dose IV Q6M Vilazodone HCl [Viibryd] 40 mg PO DAILY Docusate [Colace] 100 mg PO BID #30 capsule Nitrofurantoin Monohyd/M-Cryst [Macrobid] 100 mg PO Q12HR Discontinued Ibuprofen [Motrin] 600 mg PO Q8HR PRN #30 tab PRN Reason: Pain Discharge Medication List LORazepam [Ativan] 1 mg PO TID PRN 07/10/14 [History] Albuterol Inhaler (Mhu) [Ventolin Hfa Inhaler (Mhu)] 1 - 2 puff INHALATION RT- Q6H PRN #1 inhaler 03/20/19 [Rx] Letrozole [Femara] 2.5 mg PO HS 05/21/19 [History] Oxybutynin Chloride [Ditropan XL] 10 mg PO DAILY 05/21/19 [History] Potassium Chloride [K-Tab ER] 20 meq PO DAILY 05/21/19 [History] Zoladex 1 dose INJ Q30D 05/21/19 [History] Zoledronic Acid [Zometa] 1 dose IV Q6M 05/21/19 [History] Vilazodone HCl [Viibryd] 40 mg PO DAILY 05/27/19 [History] Docusate [Colace] 100 mg PO BID #30 capsule 06/02/19 [Rx] Nitrofurantoin Monohyd/M-Cryst [Macrobid] 100 mg PO Q12HR 08/31/21 [History] Omeprazole [PriLOSEC] 40 mg PO DAILY #14 cap 09/01/21 [Rx] Follow up Appointment(s)/Referral(s): Nya Hines MD [STAFF PHYSICIAN] - 09/13/21 Patient Instructions/Handouts: Colitis (ED), Diet for Stomach Ulcers and Gastritis (GEN), GERD (Gastroesophageal Reflux Disease) (DC), Safe Use of NSAIDs (DC) Activity/Diet/Wound Care/Special Instructions: Stop NSAIDS Discharge Disposition: HOME SELF-CARE
--- NOTE | 2021-09-01 10:56 | P.PCN ---
Date of Procedure: 09/01/21 Description of Procedure: PREOPERATIVE DIAGNOSIS: Gastroesophageal reflux disease. Morbid obesity. Epigastric abdominal pain POSTOPERATIVE DIAGNOSIS: Gastroesophageal reflux disease. Morbid obesity. Gastritis with bleeding Gastric polyp Epigastric abdominal pain OPERATION: Esophagogastroduodenoscopy with biopsies along antrum and duodenum SURGEON: Nya Hines MD ANESTHESIA: MAC. INDICATIONS: The patient is a 46-year-old female who presents with reflux disease and epigastric abdominal pain. Benefits and risks of the procedure were described. Informed consent was obtained. DESCRIPTION: The patient was brought into the endoscopy suite and laid in the left lateral decubitus position. An Olympus gastroscope was passed along the posterior oropharynx down to the distal esophagus where the squamocolumnar junction was encountered at 38 cm from the incisors. The stomach was entered and no bile reflux was found. Additional findings are listed below. Biopsies with cold forceps were obtained of the antrum. The first through third portion of the duodenum was examined and cold forceps biopsies obtained. Retroflexion of the scope confirmed Hill grade 1 lower esophageal valve. The squamocolumnar junction demonstrated LA grade A erosive esophagitis. The stomach was desufflated. The patient tolerated the procedure well. FINDINGS: Squamocolumnar junction 38 cm from the incisors. Diaphragmatic hiatus at 38 cm. Gastric polyp, diminutive Hill grade 1 lower esophageal valve. LA grade A erosive esophagitis. Random biopsies were taken of duodenum for celiac disease Chronic gastritis with recent bleed RECOMMENDATIONS: Discontinue NSAIDs Omeprazole 40 mg daily for 2 weeks
== END 2021-09-01 11:14 | disposition home or self-care (01) ==
LOC: ORWHC2ENDO 08:18
PROVIDERS: ATTEND Surgery Plastic and Reconstructive Surgery
DX: K29.50 Unspecified chronic gastritis without bleeding (principal); E66.01 Morbid (severe) obesity due to excess calories; J45.990 Exercise induced bronchospasm; K21.9 Gastro-esophageal reflux disease without esophagitis; K31.7 Polyp of stomach and duodenum; Z79.1 Long term (current) use of non-steroidal anti-inflammatories (NSAID); Z79.811 Long term (current) use of aromatase inhibitors; Z79.899 Other long term (current) drug therapy; Z90.49 Acquired absence of other specified parts of digestive tract; Z88.8 Allergy status to other drugs, medicaments and biological substances; E07.9 Disorder of thyroid, unspecified; G82.50 Quadriplegia, unspecified
CPT/HCPCS: 45380; 43239; 88305; J2250; J3010; J2704; J2001

== ENCOUNTER 2023-03-17 15:04 | Inpatient (IN) | payer OTHER ==
[2023-03-17] MEDS ORDERED: methylPREDNISolone SOD SUCCI 125 MG/2 ML VIAL IV STA (15:39)
[2023-03-17] MEDS ORDERED: diphenhydrAMINE 50 MG/ML 1 ML VIAL IVP STA (15:39)
[2023-03-17] MEDS ORDERED: FAMOTIDINE 20 MG/2 ML VIAL IV STA (15:39)
[2023-03-17] MEDS ORDERED: SODIUM CHLORIDE 0.9% 1,000 ML IV STA (15:40)
[2023-03-17 15:45] LABS: Glucose,Whole Blood 116 mg/dL (70-110)
--- NOTE | 2023-03-17 15:52 | ED ---
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 She has mild slurred speech which is understandable starting at approximately 1300. Patient states she felt normal and then just prior to arrival at a [facility] began feeling tired. States she has been feeling normal all morning up until that point. When she arrived, family thought she may have taken an Ativan or benzodiazepine which she did night. However she is acting more sleepy intermittently with the dysarthria. Symptoms have been unchanged since then. Denies any new neurological deficits otherwise. Denies any numbness or weakness. Denies any new headaches or injuries. Denies any head injuries. Denies any fevers, chills, cough, or neck complaints. Onset of symptoms was rather sudden. Presents for further evaluation at this time. States she is not on blood thinners. - Related Data Home Medications Medication Instructions Recorded Confirmed Fesoterodine Fumarate 8 mg PO DAILY 03/17/23 03/17/23 [Fesoterodine Fumarate ER] LORazepam [Ativan] 2 mg PO HS 03/17/23 03/17/23 Vilazodone HCl [Viibryd] 40 mg PO DAILY 03/17/23 03/17/23 Previous Rx's Medication Instructions Recorded Albuterol Inhaler [Ventolin Hfa 1 - 2 puff INHALATION RT-Q6H PRN 03/20/19 Inhaler] #1 inhaler Allergies Allergy/AdvReac Type Severity Reaction Status Date / Time chlorhexidine Allergy Rash/Hives Verified 03/17/23 16:51 Iodinated Contrast Media Allergy Rash/Hives Verified 03/17/23 16:51 succinylcholine AdvReac Severe EXACERBATED Verified 03/17/23 16:51 SPASTICITY IN LEGS Review of Systems ROS Statement: Those systems with pertinent positive or pertinent negative responses have been documented in the HPI. Review of Systems: CONST: Denies fever EYES: Denies blurry vision ENT: Denies nasal congestion C/V: Denies Chest pain RESP: Denies shortness of breath GI: Denies abdominal pain : Denies dysuria SKIN: Denies rash. MSK: Denies joint pain. NEURO: Denies headache ROS Other: All systems not noted in ROS Statement are negative. Past Medical History Past Medical History: Asthma, Cancer, Neurologic Disorder, Pneumonia, Thyroid Disorder Additional Past Medical History / Comment(s): HAS CP. spastic quadraplegic uses forearm crutches is fall risk, EXERCISE INDUCED ASTHMA MILD. not currently taking thyroid medication, breast cancer rt 04/27/16 with chemo and radiation, chronic ear infections History of Any Multi-Drug Resistant Organisms: ESBL Date of last positivie culture/infection: 03/09/20 MDRO Source:: ESBL URINE Past Surgical History: Cholecystectomy, Ear Surgery, Orthopedic Surgery, Tonsillectomy Additional Past Surgical History / Comment(s): BMT X2. ORIF RT LEG, W/ SUMANTH, SCREWS. TENDON LENGTHENING IN FEET, LEGS., R sided lumpectomy with sentinel lymph node removal Past Anesthesia/Blood Transfusion Reactions: Previous Problems w/ Anesthesia Additional Past Anesthesia/Blood Transfusion Reaction / Comment(s): SUCCINYLCHOLINE GREATLY INCREASES SPASTICITY LEGS. Past Psychological History: Anxiety Smoking Status: Former smoker Past Alcohol Use History: None Reported Past Drug Use History: None Reported - Past Family History Mother Family Medical History: Cancer General Exam - General Exam Comments Initial Comments: General: Appears in no acute distress. HEAD: Normal with no signs of head trauma. EYES: PERRLA, EOMI, conjunctiva normal, no discharge. Pupils are 3 mm and equal bilaterally. ENT: Hearing grossly intact, normal oropharynx. RESPIRATORY: Clear breath sounds bilaterally. No wheezes, rales, or rhonchi. C/V: Regular rate and rhythm. S1 and S2 auscultated, no edema, peripheral pulses 2+ and intact throughout ABD: Abd is soft, nontender, nondistended EXT: Normal range of motion, no obvious deformity SKIN: No rashes or lesions observed on exposed skin. NEURO: Alert and oriented 4. Has chronic spastic quadriplegia with good motion of her upper extremities and poor motion of her lower extremity is. Per patient and sister, no acute new neurological deficits, comes to strength of her upper or lower extremities. She is at her baseline. NIH for new deficits is 1 for mild dysarthria. Last known well was at 1300. Exam performed in the presence of the patient's sister who assisted with the patient in understanding her baseline. Limitations: no limitations Course Vital Signs 03/17/23 03/17/23 03/17/23 15:17 15:58 16:15 Temperature 97.2 F L Pulse Rate 83 100 97 Respiratory 20 20 18 Rate Blood Pressure 104/74 118/83 115/65 O2 Sat by Pulse 97 97 99 Oximetry 03/17/23 16:30 Temperature Pulse Rate 96 Respiratory 20 Rate Blood Pressure 109/92 O2 Sat by Pulse 95 Oximetry Medical Decision Making - Medical Decision Making Was pt. sent in by a medical professional or institution (, PA, CLOUD ENGINEER, urgent care, hospital, or fpc...) When possible be specific @ -No Did you speak to anyone other than the patient for history (EMS, parent, family, police, friend...)? What history was obtained from this source @ -Patient's sister presents with patient for further evaluation and assist with patient's recent past medical history as well as recent presentation for current illness. Did you review nursing and triage notes (agree or disagree)? Why? @ -I reviewed and agree with nursing and triage notes Were old charts reviewed (outside hosp., previous admission, EMS record, old EKG, old radiological studies, urgent care reports/EKG's, fpc records)? Report findings @ -Old charts reviewed Differential Diagnosis (chest pain, altered mental status, abdominal pain women, abdominal pain men, vaginal bleeding, weakness, fever, dyspnea, syncope, headache, dizziness, GI bleed, back pain, seizure, CVA, palpatations, mental health, musculoskeletal)? @ -Differential CVA Ischemic stroke, hemorrhagic stroke, brain tumor, atypical migraine, Wernicke's encephalopathy, seizure, multiple sclerosis, meningitis, encephalitis, hypoglycemia, Guillain-Titus, electrolytes disturbance, myasthenia gravis.... This is not meant to be an all-inclusive list Differential Weakness: Hypoglycemia, shock, sepsis, hyponatremia, anemia, infection, [place], ETOH, adverse medicine reaction, overdose, stroke, this is not meant to be an all-inclusive list. EKG interpreted by me (3pts min.). @ -As above X-rays interpreted by me (1pt min.). @ -Chest x-ray reveals no obvious acute cardio pulmonary process. CT interpreted by me (1pt min.). @ -CT brain reveals no obvious acute intracranial process, bleed. CT angiogram of the head and neck reveals no obvious acute large vessel occlusion or acute process. U/S interpreted by me (1pt. min.). @ -None done What testing was considered but not performed or refused? (CT, X-rays, U/S, labs)? Why? @ -None What meds were considered but not given or refused? Why? @ -None Did you discuss the management of the patient with other professionals (professionals i.e. DrGlenna, PA, CLOUD ENGINEER, lab, RT, psych nurse, social security assessor, textiles printer, teacher, dispatch officer, comp field case manager)? Give summary @ -Discussed the case with Dr. Ku of neuro critical care was in agreement that due to the patient's low NIH, risks far outweigh the benefits of administration TPA at this time and we will not administer TPA. Family in agreement this plan. Was in agreement with admission for medical management. Recommended an aspirin administration. Discussed the case with the admitting team, SIMONA Anthony of [facility] who accepted the patient. Was smoking cessation discussed for >3mins.? @ -No Was critical care preformed (if so, how long)? @ -Yes, 35 minutes Were there social determinants of health that impacted care today? How? (Homelessness, low income, unemployed, alcoholism, drug addiction, transportation, low edu. Level, literacy, decrease access to med. care, shelter, rehab)? @ -No Was there de-escalation of care discussed even if they declined (Discuss DNR or withdrawal of care, Hospice)? DNR status @ -No What co-morbidities impacted this encounter? (DM, HTN, Smoking, COPD, CAD, Cancer, CVA, ARF, Chemo, Hep., AIDS, mental health diagnosis, sleep apnea, morbid obesity)? @ -None Was patient admitted / discharged? Hospital course, mention meds given and route, prescriptions, significant lab abnormalities, going to OR and other pertinent info. @ -Based on the patient's presentation and physical exam, I'm concerned for possible CVA for the patient but cannot rule out other etiologies. However due to the sudden onset of symptoms at approximately 1 PM, with no symptoms prior to this and having clear mild dysarthria with an NIH of 1 I spoke with patient as well as sister and the decision was made to make the patient a code alteplase for time of symptom onset within the last 3-3-1/2 hours. However I do believe that risks far outweigh the benefits for TPA administration due to the minor symptoms as well as possibility of symptoms being caused by something else. Family expressed understanding. Patient expressed understanding. They were in agreement with this plan. Bowel sounds within acceptable limits. Patient does have an iodine ALLERGY and she will receive premeds with Benadryl, Pepcid, Solu-Medrol as well as 1 L fluid bolus. Code alteplase at 15:37. Returned phone call from Dr. Ku of neuro crit care at 16:12 who was in agreement with the plan that the patient with her mild symptoms should not receive TPA. CT imaging negative for any obvious acute process. Chest x-ray unremarkable. Labs remarkable for positive UDS for benzos which patient does take Ativan as prescribed. EKG unremarkable. On reevaluation, patient does appear slightly improved. Discussed results of the patient as well as patient's sister. They were in agreement with plan for admission for neurology evaluation. Patient given 325 mg of aspirin. Discussed the case with Dr. Ku of neuro critical care was in agreement that due to the patient's low NIH, risks far outweigh the benefits of administration TPA at this time and we will not administer TPA. Family in agreement this plan. Was in agreement with admission for medical management. Recommended an aspirin administration. Discussed the case with the admitting team, SIMONA Anthony of [facility] who accepted the patient. Undiagnosed new problem with uncertain prognosis? @ -No Drug Therapy requiring intensive monitoring for toxicity (Heparin, Nitro, Insulin, Cardizem)? @ -No Were any procedures done? @ -No Diagnosis/symptom? @ -Dysarthria of unknown etiology, possible CVA Acute, or Chronic, or Acute on Chronic? @ -Acute Uncomplicated (without systemic symptoms) or Complicated (systemic symptoms)? @ -Compensated Side effects of treatment? @ -none Exacerbation, Progression, or Severe Exacerbation] @ -no Poses a threat to life or bodily function? @ -Possibly, yes - Lab Data Result diagrams: 03/17/23 15:37 03/17/23 15:37 Lab Results 03/17/23 03/17/23 03/17/23 Range/Units 15:37 15:37 15:37 WBC 8.6 (3.8-10.6) k/uL RBC 5.15 (3.80-5.40) m/uL Hgb 15.2 (11.4-16.0) gm/dL Hct 45.0 (34.0-46.0) % MCV 87.3 (80.0-100.0) fL MCH 29.5 (25.0-35.0) pg MCHC 33.8 (31.0-37.0) g/dL RDW 12.9 (11.5-15.5) % Plt Count 208 (150-450) k/uL MPV 7.5 Neutrophils % 66 % Lymphocytes % 26 % Monocytes % 5 % Eosinophils % 2 % Basophils % 0 % Neutrophils # 5.7 (1.3-7.7) k/uL Lymphocytes # 2.2 (1.0-4.8) k/uL Monocytes # 0.4 (0-1.0) k/uL Eosinophils # 0.1 (0-0.7) k/uL Basophils # 0.0 (0-0.2) k/uL PT 16.1 H (10.0-12.5) sec INR 1.6 H (<1.2) APTT 25.3 (22.0-30.0) sec Sodium 138 (137-145) mmol/L Potassium 3.6 (3.5-5.1) mmol/L Chloride 103 (98-107) mmol/L Carbon Dioxide 24 (22-30) mmol/L Anion Gap 11 mmol/L BUN 14 (7-17) mg/dL Creatinine 0.71 (0.52-1.04) mg/dL Est GFR (CKD-EPI)AfAm >90 (>60 ml/min/1.73 sqM) Est GFR (CKD-EPI)NonAf >90 (>60 ml/min/1.73 sqM) Glucose 106 H (74-99) mg/dL POC Glucose (mg/dL) (70-110) mg/dL POC Glu Floor Surfacer ID Calcium 9.4 (8.4-10.2) mg/dL Total Bilirubin 0.7 (0.2-1.3) mg/dL AST 29 (14-36) U/L ALT 30 (4-34) U/L Alkaline Phosphatase 59 (38-126) U/L Creatine Kinase 141 H (30-135) U/L Troponin I (0.000-0.034) ng/mL Total Protein 7.8 (6.3-8.2) g/dL Albumin 4.6 (3.5-5.0) g/dL Urine Color Urine Appearance (Clear) Urine pH (5.0-8.0) Ur Specific [place] (1.001-1.035) Urine Protein (Negative) Urine Glucose (UA) (Negative) Urine Ketones (Negative) Urine Blood (Negative) Urine Nitrite (Negative) Urine Bilirubin (Negative) Urine Urobilinogen (<2.0) mg/dL Ur Leukocyte Esterase (Negative) Urine Opiates Screen (NotDetected) Ur Oxycodone Screen (NotDetected) Urine Methadone Screen (NotDetected) Ur Propoxyphene Screen (NotDetected) Ur Barbiturates Screen (NotDetected) U Tricyclic Antidepress (NotDetected) Ur Phencyclidine Scrn (NotDetected) Ur Amphetamines Screen (NotDetected) U Methamphetamines Scrn (NotDetected) U Benzodiazepines Scrn (NotDetected) Urine Cocaine Screen (NotDetected) U Marijuana (THC) Screen (NotDetected) Serum Alcohol mg/dL 03/17/23 03/17/23 03/17/23 Range/Units 15:37 15:37 15:43 WBC (3.8-10.6) k/uL RBC (3.80-5.40) m/uL Hgb (11.4-16.0) gm/dL Hct (34.0-46.0) % MCV (80.0-100.0) fL MCH (25.0-35.0) pg MCHC (31.0-37.0) g/dL RDW (11.5-15.5) % Plt Count (150-450) k/uL MPV Neutrophils % % Lymphocytes % % Monocytes % % Eosinophils % % Basophils % % Neutrophils # (1.3-7.7) k/uL Lymphocytes # (1.0-4.8) k/uL Monocytes # (0-1.0) k/uL Eosinophils # (0-0.7) k/uL Basophils # (0-0.2) k/uL PT (10.0-12.5) sec INR (<1.2) APTT (22.0-30.0) sec Sodium (137-145) mmol/L Potassium (3.5-5.1) mmol/L Chloride (98-107) mmol/L Carbon Dioxide (22-30) mmol/L Anion Gap mmol/L BUN (7-17) mg/dL Creatinine (0.52-1.04) mg/dL Est GFR (CKD-EPI)AfAm (>60 ml/min/1.73 sqM) Est GFR (CKD-EPI)NonAf (>60 ml/min/1.73 sqM) Glucose (74-99) mg/dL POC Glucose (mg/dL) 116 H (70-110) mg/dL POC Glu Floor Surfacer ID [place] Fierro Calcium (8.4-10.2) mg/dL Total Bilirubin (0.2-1.3) mg/dL AST (14-36) U/L ALT (4-34) U/L Alkaline Phosphatase (38-126) U/L Creatine Kinase (30-135) U/L Troponin I <0.012 (0.000-0.034) ng/mL Total Protein (6.3-8.2) g/dL Albumin (3.5-5.0) g/dL Urine Color Colorless Urine Appearance Clear (Clear) Urine pH 6.0 (5.0-8.0) Ur Specific [place] 1.004 (1.001-1.035) Urine Protein Negative (Negative) Urine Glucose (UA) Negative (Negative) Urine Ketones Negative (Negative) Urine Blood Negative (Negative) Urine Nitrite Negative (Negative) Urine Bilirubin Negative (Negative) Urine Urobilinogen <2.0 (<2.0) mg/dL Ur Leukocyte Esterase Negative (Negative) Urine Opiates Screen Not Detected (NotDetected) Ur Oxycodone Screen Not Detected (NotDetected) Urine Methadone Screen Not Detected (NotDetected) Ur Propoxyphene Screen Not Detected (NotDetected) Ur Barbiturates Screen Not Detected (NotDetected) U Tricyclic Antidepress Not Detected (NotDetected) Ur Phencyclidine Scrn Not Detected (NotDetected) Ur Amphetamines Screen Not Detected (NotDetected) U Methamphetamines Scrn Not Detected (NotDetected) U Benzodiazepines Scrn Detected H (NotDetected) Urine Cocaine Screen Not Detected (NotDetected) U Marijuana (THC) Screen Not Detected (NotDetected) Serum Alcohol mg/dL 03/17/23 Range/Units 16:49 WBC (3.8-10.6) k/uL RBC (3.80-5.40) m/uL Hgb (11.4-16.0) gm/dL Hct (34.0-46.0) % MCV (80.0-100.0) fL MCH (25.0-35.0) pg MCHC (31.0-37.0) g/dL RDW (11.5-15.5) % Plt Count (150-450) k/uL MPV Neutrophils % % Lymphocytes % % Monocytes % % Eosinophils % % Basophils % % Neutrophils # (1.3-7.7) k/uL Lymphocytes # (1.0-4.8) k/uL Monocytes # (0-1.0) k/uL Eosinophils # (0-0.7) k/uL Basophils # (0-0.2) k/uL PT (10.0-12.5) sec INR (<1.2) APTT (22.0-30.0) sec Sodium (137-145) mmol/L Potassium (3.5-5.1) mmol/L Chloride (98-107) mmol/L Carbon Dioxide (22-30) mmol/L Anion Gap mmol/L BUN (7-17) mg/dL Creatinine (0.52-1.04) mg/dL Est GFR (CKD-EPI)AfAm (>60 ml/min/1.73 sqM) Est GFR (CKD-EPI)NonAf (>60 ml/min/1.73 sqM) Glucose (74-99) mg/dL POC Glucose (mg/dL) (70-110) mg/dL POC Glu Floor Surfacer ID Calcium (8.4-10.2) mg/dL Total Bilirubin (0.2-1.3) mg/dL AST (14-36) U/L ALT (4-34) U/L Alkaline Phosphatase (38-126) U/L Creatine Kinase (30-135) U/L Troponin I (0.000-0.034) ng/mL Total Protein (6.3-8.2) g/dL Albumin (3.5-5.0) g/dL Urine Color Urine Appearance (Clear) Urine pH (5.0-8.0) Ur Specific [place] (1.001-1.035) Urine Protein (Negative) Urine Glucose (UA) (Negative) Urine Ketones (Negative) Urine Blood (Negative) Urine Nitrite (Negative) Urine Bilirubin (Negative) Urine Urobilinogen (<2.0) mg/dL Ur Leukocyte Esterase (Negative) Urine Opiates Screen (NotDetected) Ur Oxycodone Screen (NotDetected) Urine Methadone Screen (NotDetected) Ur Propoxyphene Screen (NotDetected) Ur Barbiturates Screen (NotDetected) U Tricyclic Antidepress (NotDetected) Ur Phencyclidine Scrn (NotDetected) Ur Amphetamines Screen (NotDetected) U Methamphetamines Scrn (NotDetected) U Benzodiazepines Scrn (NotDetected) Urine Cocaine Screen (NotDetected) U Marijuana (THC) Screen (NotDetected) Serum Alcohol <10 mg/dL - EKG Data -: EKG Interpreted by Me EKG Comments: 12-lead Electrocardiogram Interpretation Note EKG was reviewed and interpreted by myself. 12-lead ECG performed at 1551 is interpreted by me as revealing normal sinus rhythm at a rate of 90 beats per minute. [place] is normal. CO interval is 164 ms, QRS duration is 83 ms, QTc is 419 ms.. There were no ST or T wave abnormalities to suggest myocardial ischemia or injury. R wave progression across the precordium was satisfactory. By my interpretation this EKG is non-diagnostic for acute ischemia. Critical Care Time Critical Care Time: Yes Total Critical Care Time: 35 Disposition Clinical Impression: History of quadriplegia, Dysarthria Narrative: rule out cva Disposition: ADMITTED IP TO THIS HOSP Condition: Stable Is patient prescribed a controlled substance at d/c from ED?: No Referrals: Js Elliott DO [Primary Care Provider] - 1-2 days Time of Disposition: 17:20
[2023-03-17 16:06] LABS: Basophils % (A) 0 %; Eosinophils # (A) 0.1 k/uL (0-0.7); Eosinophils % (A) 2 %; HGB 15.2 gm/dL (11.4-16.0); Lymphocytes # (A) 2.2 k/uL (1.0-4.8); Lymphocytes % (A) 26 %; MCH 29.5 pg (25.0-35.0); MCHC 33.8 g/dL (31.0-37.0); MCV 87.3 fL (80.0-100.0); Mean Platelet Volume 7.5; Monocytes # (A) 0.4 k/uL (0-1.0); Monocytes % (A) 5 %; Neutrophils # (A) 5.7 k/uL (1.3-7.7); Neutrophils % (A) 66 %; Platelet Count 208 k/uL (150-450); RBC 5.15 m/uL (3.80-5.40); RDW 12.9 % (11.5-15.5); WBC 8.6 k/uL (3.8-10.6)
[2023-03-17 16:15] LABS: Potassium 3.6 mmol/L (3.5-5.1)
[2023-03-17 16:16] LABS: ALT 30 U/L (4-34); AST 29 U/L (14-36); African American GFR (CKD) >90 (>60 ml/min/1.73 sqM); Albumin 4.6 g/dL (3.5-5.0); Alkaline Phosphatase 59 U/L (38-126); Anion Gap 11 mmol/L; Blood Urea Nitrogen 14 mg/dL (7-17); Calcium 9.4 mg/dL (8.4-10.2); Carbon Dioxide 24 mmol/L (22-30); Chloride 103 mmol/L (98-107); Creatine Kinase 141 U/L (30-135); Glucose 106 mg/dL (74-99); Non-African American GFR(CKD) >90 (>60 ml/min/1.73 sqM); Sodium 138 mmol/L (137-145); Total Bilirubin 0.7 mg/dL (0.2-1.3); Total Protein 7.8 g/dL (6.3-8.2)
[2023-03-17 16:18] LABS: INR 1.6 (<1.2); Partial Thromboplastin Time 25.3 sec (22.0-30.0); Prothrombin Time 16.1 sec (10.0-12.5)
--- NOTE | 2023-03-17 16:25 | CT ---
EXAMINATION TYPE: CT brain wo con for TPA DATE OF EXAM: 03/17/2023 COMPARISON: None HISTORY: cva CT DLP: 1099.6 mGycm Automated exposure control for dose reduction was used. FINDINGS: There is dilatation of the posterior horns and atria of the lateral ventricles consistent with colpoc ephaly which was identified on prior MRI dated 08/31/2015. There is no abnormal density throughout the brain parenchyma. There is no acute intra or extra-axial hemorrhage. There is no mass effect or shift of the midline structures. The posterior fossa is grossly normal. The intraorbital contents appear normal and symmetric. Visualized paranasal sinuses are well aerated. There is marked fluid in the left mastoid air cells an d mild to moderate fluid in the right mastoid air cells. IMPRESSION: 1. No acute bleed or mass effect. 2. Colpocephaly. 3.inflammatory changes in the mastoid air cells bilaterally, left greater than right.
[2023-03-17 16:26] LABS: Appearance,Urine Clear (Clear); Bilirubin,Urine Negative (Negative); Blood,Urine Negative (Negative); Color,Urine Colorless; Glucose,Urine (UA) Negative (Negative); Ketones,Urine Negative (Negative); Leukocyte Esterase,Urine Negative (Negative); Nitrite,Urine Negative (Negative); Protein,Urine Negative (Negative); Specific Gravity,Urine 1.004 (1.001-1.035); Urobilinogen,Urine <2.0 mg/dL (<2.0)
--- NOTE | 2023-03-17 16:26 | XR ---
EXAMINATION TYPE: XR chest 2V DATE OF EXAM: 03/17/2023 COMPARISON: 03/20/2019 HISTORY: Altered mental status TECHNIQUE: Frontal and lateral views of the chest are obtained. FINDINGS: There is no focal air space opacity, pleural effusion, or pneumothorax seen. The cardiac silhouette size is within normal limits. The osseous structures are intact. IMPRESSION: No acute cardiopulmonary process.
[2023-03-17 16:34] LABS: Amphetamine Screen,Urine Not Detected (NotDetected); Barbiturate Screen,Urine Not Detected (NotDetected); Benzodiazepines Screen,Urine Detected (NotDetected); Cocaine Screen,Urine Not Detected (NotDetected); Methadone Screen, Urine Not Detected (NotDetected); Opiate Screen,Urine Not Detected (NotDetected); Oxycodone Screen, Urine Not Detected (NotDetected); Phencyclidine Screen,Urine Not Detected (NotDetected); Tricyclic Antidepressant,Urine Not Detected (NotDetected); Urn Cannabinoid Scrn Not Detected (NotDetected)
--- NOTE | 2023-03-17 17:00 | CT ---
EXAMINATION TYPE: CT angio head neck DATE OF EXAM: 03/17/2023 HISTORY: Code CVA, lethargic, weakness, pale. COMPARISON: None CT DLP: 551.5 mGycm. Automated Exposure Control for Dose Reduction was Utilized. TECHNIQUE: CTA scan of the head and neck is performed with IV Contrast, patient injected with 65 ml mL of Isovue 370, axial images are obtained, coronal and sagittal reformatted images are reviewed. 3D reconstructed images are created on an independent workstation and reviewed. FINDINGS: The brachiocephalic origins are widely patent. There is no significant stenosis of the common or internal carotid arteries within the neck in the ca rotid bifurcations are widely patent. The left vertebral artery is dominant. Intracranially, there is no sizable aneurysm sac, vascular malformation or segmental occlusion NASCET criteria was used in interpretation of this exam? IMPRESSION: No evidence of occlusive disease involving the carotid arteries within the neck or within the intracr anial circulation.
[2023-03-17] MEDS ORDERED: ASPIRIN 325 MG TAB PO STA (17:34)
[2023-03-17] MEDS ORDERED: ALBUTEROL NEBULIZED 2.5 MG/3 ML INHALATION PRN (17:36)
[2023-03-18] MEDS ORDERED: ACETAMINOPHEN TAB 325 MG TAB PO PRN (08:46)
[2023-03-18] MEDS: TROSPIUM CHLORIDE 20 MG TABLET PO SCH ×2 (08:52→21:27)
[2023-03-18] MEDS ORDERED: NON FORMULARY DRUG (Vilazodone Hcl [Viibryd] 40 MG Tablet) PO SCH (09:00)
[2023-03-18] MEDS: Vilazodone Hcl [Viibryd] 40 MG Tablet PO SCH (11:00)
--- NOTE | 2023-03-18 12:13 | P.HPIM ---
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 Patient presented to the emergency department within the TPA window however patient had significant improvement in symptoms. Oncology and urology was contacted and it was decided to defer TPA. While in ER patient had significant improvement in her symptoms. No other neurological deficit was noted. On assessment patient denied any further numbness, weakness denies head injuries, fever, chills, cough. * Workup in ER included CT head which was negative for acute intracranial process, CT angina head and neck was negative as well * Blood work obtained showed WBC within normal limits hemoglobin within normal limits platelet count within normal limits. PT 16.1, INR 1.6 * Serum chemistry showed sodium 138 potassium 3.6 BUN/creatinine and creatinine within normal limits. Creatinine kinase 141 * Urinalysis is negative, urine drug screen positive for benzodiazepines been as expected REVIEW OF SYSTEMS: Slurred speech CONSTITUTIONAL: No fever, no malaise, no fatigue. HEENT: No recent visual problems or hearing problems. Denied any sore throat. CARDIOVASCULAR: No chest pain, orthopnea, PND, no palpitations, no syncope. PULMONARY: No shortness of breath, no cough, no hemoptysis. GASTROINTESTINAL: No diarrhea, no nausea, no vomiting, no abdominal pain. NEUROLOGICAL: No headaches, no weakness, no numbness. HEMATOLOGICAL: Denies any bleeding or petechiae. GENITOURINARY: Denies any burning micturition, frequency, or urgency. MUSCULOSKELETAL/RHEUMATOLOGICAL: Denies any joint pain, swelling, or any muscle pain. ENDOCRINE: Denies any polyuria or polydipsia. PHYSICAL EXAMINATION: GENERAL: The patient is alert and oriented x3, not in any acute distress. Well developed, well nourished. HEENT: Pupils are round and equally reacting to light. EOMI CARDIOVASCULAR: S1 and S2 present. No murmurs, rubs, or gallops. PULMONARY: Chest is clear to auscultation, no wheezing or crackles. ABDOMEN: Soft, nontender, nondistended, normoactive bowel sounds. No palpable organomegaly. MUSCULOSKELETAL: No joint swelling or deformity. EXTREMITIES: No cyanosis, clubbing, or pedal edema. NEUROLOGICAL: Gross neurological examination did not reveal any focal deficits. SKIN: No rashes. Past Medical History Past Medical History: Asthma, Cancer, Neurologic Disorder, Pneumonia, Respiratory Disorder, Thyroid Disorder Additional Past Medical History / Comment(s): cerebral palsy diagnosed 10 month old, spastic quadraplegic, uses forearm crutches is fall risk, EXERCISE INDUCED ASTHMA MILD, not currently taking thyroid medication, right breast cancer diagnosed 04/27/16 with surgery, chemo, and radiation 05/24/16, chronic ear infections-r/t ear canal development, tubes in ears, possible sleep apnea- patient not diagnosed; has worn a heart monitor for 1 month per caridology assicocaites in past r/t r/o stroke History of Any Multi-Drug Resistant Organisms: None Reported Date of last positivie culture/infection: 03/09/20 MDRO Source:: ESBL URINE Past Surgical History: Cholecystectomy, Ear Surgery, Orthopedic Surgery, Tonsillectomy Additional Past Surgical History / Comment(s): ORIF RT LEG, W/ SUMANTH, SCREWS. TENDON LENGTHENING IN FEET, LEGS., R sided lumpectomy with sentinel lymph node removal, bowel perforiation post gallbladder removal-had to go back to repair with Dr. Acosta. Past Anesthesia/Blood Transfusion Reactions: Previous Problems w/ Anesthesia Additional Past Anesthesia/Blood Transfusion Reaction / Comment(s): S UCCINYLCHOLINE GREATLY INCREASES SPASTICITY LEGS. Past Psychological History: Anxiety, Depression, Panic Disorder Smoking Status: Former smoker Past Alcohol Use History: None Reported Past Drug Use History: None Reported - Past Family History Mother Family Medical History: Cancer Additional Family Medical History / Comment(s): lung cancer, has passed Father Family Medical History: Diabetes Mellitus, Hypertension Additional Family Medical History / Comment(s): extensive heart history Medications and Allergies Home Medications Medication Instructions Recorded Confirmed Type Albuterol Inhaler [Ventolin Hfa 1 - 2 puff INHALATION RT-Q6H PRN 03/20/19 03/17/23 Rx Inhaler] #1 inhaler Fesoterodine Fumarate 8 mg PO DAILY 03/17/23 03/17/23 History [Fesoterodine Fumarate ER] LORazepam [Ativan] 2 mg PO HS 03/17/23 03/17/23 History Vilazodone HCl [Viibryd] 40 mg PO DAILY 03/17/23 03/17/23 History Allergies Allergy/AdvReac Type Severity Reaction Status Date / Time chlorhexidine Allergy Rash/Hives Verified 03/17/23 16:51 Iodinated Contrast Media Allergy Rash/Hives Verified 03/17/23 16:51 succinylcholine AdvReac Severe EXACERBATED Verified 03/17/23 16:51 SPASTICITY IN LEGS Physical Exam Vitals: Vital Signs Temp Pulse Pulse Resp BP BP BP 03/18/23 08:34 97.6 F 91 18 104/63 03/18/23 07:55 03/18/23 04:00 97.8 F 94 18 115/67 03/18/23 02:00 90 18 03/17/23 23:00 97.4 F L 90 18 105/65 03/17/23 20:39 98 16 03/17/23 20:33 97.7 F 98 16 132/80 03/17/23 19:36 100 18 128/66 03/17/23 16:30 96 20 109/92 03/17/23 16:15 97 18 115/65 03/17/23 15:58 100 20 118/83 03/17/23 15:17 97.2 F L 83 20 104/74 Pulse Ox FiO2 03/18/23 08:34 95 03/18/23 07:55 94 L 21 03/18/23 04:00 93 L 03/18/23 02:00 03/17/23 23:00 98 03/17/23 20:39 03/17/23 20:33 95 03/17/23 19:36 97 03/17/23 16:30 95 03/17/23 16:15 99 03/17/23 15:58 97 03/17/23 15:17 97 Intake and Output 03/17/23 03/18/23 03/18/23 22:59 06:59 14:59 Output Total 300 Balance -300 Output: Urine 300 Other: Voiding Method External Catheter External Catheter Weight 90.718 kg Results CBC & Chem 7: 03/17/23 15:37 03/17/23 15:37 Labs: Abnormal Lab Results - Last 24 Hours (Table) 03/17/23 03/17/23 03/17/23 Range/Units 15:37 15:37 15:37 PT 16.1 H (10.0-12.5) sec INR 1.6 H (<1.2) Glucose 106 H (74-99) mg/dL POC Glucose (mg/dL) (70-110) mg/dL Creatine Kinase 141 H (30-135) U/L U Benzodiazepines Scrn Detected H (NotDetected) 03/17/23 Range/Units 15:43 PT (10.0-12.5) sec INR (<1.2) Glucose (74-99) mg/dL POC Glucose (mg/dL) 116 H (70-110) mg/dL Creatine Kinase (30-135) U/L U Benzodiazepines Scrn (NotDetected) Thrombosis Risk Factor Assmnt - DVT/VTE Prophylaxis DVT/VTE Prophylaxis: Mechanical Prophylaxis ordered - Choose All That Apply Each Factor Represents 1 point: Age 41-60 years, Obesity (BMI >25) Other Risk Factors: Yes Each Risk Factor Represents 2 Points: Malignancy Other congenital or acquired thrombophilia - If yes, enter type in comment: Yes Each Risk Factor Represents 5 Points: Acute spinal cord injury (paralysis) (< 1 month) Thrombosis Risk Factor Assessment Total Risk Factor Score: 9 Thrombosis Risk Factor Assessment Level: High Risk Assessment and Plan Assessment: Assessment and plan * Slurred speech or rule out TIA versus CVA * History of spastic paresis lower extremity * History of cerebral palsy * History of asthma * Consultation obtained from neurology, CT head CT angina head and neck negative for acute intracranial process * Continue patient on neuro checks, continue aspirin MRI brain ordered, physical therapy occupational therapy consulted * Lipid profile ordered, speech therapy consulted as well * Prostatic vitals ordered * CODE STATUS is full code * Time with Patient: Greater than 30
[2023-03-18 12:45] LABS: LDL Cholesterol,Calculated 127.8 mg/dL (0.0-131.0)
[2023-03-18] MEDS: LORazepam 1 MG TAB PO SCH (21:27)
--- NOTE | 2023-03-18 23:10 | P.CNNES ---
History of Present Illness Consult date: 03/18/23 Requesting physician: Fermin Inman Reason for Consult: dysarthria, rule out stroke History of Present Illness: Patient is a 47-year-old right-handed female with history of cerebral palsy, with predominant lower extremity weakness, uses foot brace and crutches to ambulate, came to the hospital yesterday at 3:04 PM for episode of decreased responsiveness. Patient states that she was celebrating her son's birthday [place] a bowling [place]. Patient states that she remembers walking into the bowling alley and felt very tired. She kept on walking and felt that she needed to go faster but she couldn't do. She sat down in the chair and felt extreme tiredness and she couldn't focus. Patient felt that she will faint, and her lips went totally white and purple (cyanosis) around her lips. People noticed that she was not feeling well, and asked if she was okay. She says that she never passed out although felt she could. People noticed that her speech was slurred. Total this episode lasted for about 1 hour. Patient states that 1-1/2 years ago she was at the hospital with her son, who was having some minor surgery. She had arrived to the hospital manager account management at 3 AM. Patient says that she remembers sitting waiting for her son to come out of surgery when she suddenly felt overwhelmed retired less. She fell asleep and they could not wake her up. Ambulance was called and she woke up in the ER. She was seen by Dr. Edwards, who performed extensive cardiac workup including event monitor, which all came back negative. She does not remember any slurred speech with that event. These are the only 2 episodes of hypo-responsiveness as mentioned above. Patient admits to being under a lot of stress because she has 2 adopted sons with special needs. Patient herself is exhibiting disability, with spastic paraparesis about 90% in the lower, and 10% involving the upper. Patient states that she was born 2 months premature resulting in cerebral palsy. She has some physical disability, but mentally she is very sharp. Vital signs arrival blood pressure 104/74, pulse rate 83 temperature 97.2. Blood test shows normal CBC, INR is 1.6, Chem-20 is normal. Troponin negative. CK is mildly elevated 141. UA negative, urine drug screen positive for benzodiazepine, blood alcohol level negative. CT head showed no acute process. Colpocephaly. Inflammatory changes in the mastoid air cells bilaterally, left greater than right. I personally reviewed CT head, agree with the findings. EKG and chest x-ray are normal. Patient has history of breast cancer for which she had undergone surgery, chemotherapy and radiation. Home medications includes albuterol, Viibryd, fesoteradine. Patient does not take any antiplatelet medication. Review of Systems Constitutional: Reports weight gain, Denies chills, Denies fever Eyes: denies blurred vision, denies diplopia, denies pain Ears: deny: decreased hearing, ear discharge Ears, nose, mouth and throat: Denies headache, Denies sore throat Cardiovascular: Denies chest pain, Denies shortness of breath Respiratory: Denies cough, Denies excessive sputum Gastrointestinal: Denies abdominal pain, Denies diarrhea, Denies nausea, Denies vomiting Genitourinary: Reports mixed incontinence, Reports urinary frequency, Denies dysuria, Denies hematuria Musculoskeletal: Denies low back pain, Denies myalgias, Denies neck pain Integumentary: Denies pruritus, Denies rash Neurological: Reports as per HPI Psychiatric: Reports anxiety, Reports depression Endocrine: Reports fatigue, Reports weight change Past Medical History Past Medical History: Asthma, Cancer, Neurologic Disorder, Pneumonia, Respiratory Disorder, Thyroid Disorder Additional Past Medical History / Comment(s): cerebral palsy diagnosed 10 month old, spastic quadraplegic, uses forearm crutches is fall risk, EXERCISE INDUCED ASTHMA MILD, not currently taking thyroid medication, right breast cancer diagnosed 04/27/16 with surgery, chemo, and radiation 05/24/16, chronic ear infections-r/t ear canal development, tubes in ears, possible sleep apnea- patient not diagnosed; has worn a heart monitor for 1 month per caridology assicocaites in past r/t r/o stroke History of Any Multi-Drug Resistant Organisms: None Reported Date of last positivie culture/infection: 03/09/20 MDRO Source:: ESBL URINE Past Surgical History: Cholecystectomy, Ear Surgery, Orthopedic Surgery, Tonsillectomy Additional Past Surgical History / Comment(s): ORIF RT LEG, W/ SUMANTH, SCREWS. TENDON LENGTHENING IN FEET, LEGS., R sided lumpectomy with sentinel lymph node removal, bowel perforiation post gallbladder removal-had to go back to repair with Dr. Acosta. Past Anesthesia/Blood Transfusion Reactions: Previous Problems w/ Anesthesia Additional Past Anesthesia/Blood Transfusion Reaction / Comment(s): SUCCINYLC HOLINE GREATLY INCREASES SPASTICITY LEGS. Past Psychological History: Anxiety, Depression, Panic Disorder Smoking Status: Former smoker Past Alcohol Use History: None Reported Past Drug Use History: None Reported - Past Family History Mother Family Medical History: Cancer Additional Family Medical History / Comment(s): lung cancer, has passed Father Family Medical History: Diabetes Mellitus, Hypertension Additional Family Medical History / Comment(s): extensive heart history Medications and Allergies Home Medications Medication Instructions Recorded Confirmed Type Albuterol Inhaler [Ventolin Hfa 1 - 2 puff INHALATION RT-Q6H PRN 03/20/19 03/17/23 Rx Inhaler] #1 inhaler Fesoterodine Fumarate 8 mg PO DAILY 03/17/23 03/17/23 History [Fesoterodine Fumarate ER] LORazepam [Ativan] 2 mg PO HS 03/17/23 03/17/23 History Vilazodone HCl [Viibryd] 40 mg PO DAILY 03/17/23 03/17/23 History Allergies Allergy/AdvReac Type Severity Reaction Status Date / Time chlorhexidine Allergy Rash/Hives Verified 03/17/23 16:51 Iodinated Contrast Media Allergy Rash/Hives Verified 03/17/23 16:51 succinylcholine AdvReac Severe EXACERBATED Verified 03/17/23 16:51 SPASTICITY IN LEGS Physical Examination - Vital Signs Vital Signs: Vital Signs Temp Pulse Pulse Resp BP BP BP 03/18/23 12:17 98.1 F 120 H 20 124/79 03/18/23 08:34 97.6 F 91 18 104/63 03/18/23 07:55 03/18/23 04:00 97.8 F 94 18 115/67 03/18/23 02:00 90 18 03/17/23 23:00 97.4 F L 90 18 105/65 03/17/23 20:39 98 16 03/17/23 20:33 97.7 F 98 16 132/80 03/17/23 19:36 100 18 128/66 03/17/23 16:30 96 20 109/92 03/17/23 16:15 97 18 115/65 03/17/23 15:58 100 20 118/83 03/17/23 15:17 97.2 F L 83 20 104/74 Pulse Ox FiO2 03/18/23 12:17 96 03/18/23 08:34 95 03/18/23 07:55 94 L 21 03/18/23 04:00 93 L 03/18/23 02:00 03/17/23 23:00 98 03/17/23 20:39 03/17/23 20:33 95 03/17/23 19:36 97 03/17/23 16:30 95 03/17/23 16:15 99 03/17/23 15:58 97 03/17/23 15:17 97 Intake and Output 03/17/23 03/18/23 03/18/23 22:59 06:59 14:59 Intake Total 10 Output Total 300 150 Balance -300 -140 Intake: IV 10 Invasive Line 1 10 Output: Urine 300 150 Other: Voiding Method External Catheter External Catheter External Catheter Weight 90.718 kg Patient is a middle aged female, very pleasant, in no acute distress. Patient is alert awake oriented to time place and person. Speech and language functions are normal. Patient can name and repeat very well. No aphasia or dysarthria. Attention, concentration and fund of knowledge is adequate. On cranial nerve examination, pupils are equal, round and reacting to light, visual pak are full on confrontation, with no neglect on double simultaneous stimulation. Extraocular muscles are intact with no nystagmus. Face is symmetric, tongue protrudes to the midline. Palatal elevation and sensation normal, hearing and shoulder shrug normal, facial sensation normal. On muscle strength testing, there is no pronator drift and the strength is normal in arms distally and proximally. In the lower limbs, her hip flexion is 3, ankles 1-2 bilaterally. Deep tendon reflexes are symmetric biceps 1+, brachioradialis 1+, knees 1+2, ankles absent and plantars are probably upgoing bilaterally. Sensory to touch is equal with no neglect on double simultaneous stimulation. Cerebellar function showed mild ataxia for [id number] on the left but not on the right. This is chronic per patient. No dysdiadochokinesia. Cannot check for [id number] testing bilaterally. Tone and bulk of muscles normal in upper limbs, but she is very spastic in the lower limbs. Gait deferred.. On general examination, there is no carotid bruit or murmur, S1-S2 audible. Chest is clear on consultation. Abdomen is soft nontender. No organomegaly, bowel sounds present. No peripheral edema. Results - Laboratory Findings CBC and BMP: 03/17/23 15:37 03/17/23 15:37 Abnormal Lab Findings: Abnormal Labs 03/17/23 03/17/23 03/17/23 15:37 15:37 15:37 PT 16.1 H INR 1.6 H Glucose 106 H POC Glucose (mg/dL) Creatine Kinase 141 H Triglycerides Cholesterol U Benzodiazepines Scrn Detected H 03/17/23 03/18/23 15:43 15:37 PT INR Glucose POC Glucose (mg/dL) 116 H Creatine Kinase Triglycerides 161.00 H Cholesterol 210.00 H U Benzodiazepines Scrn Assessment and Plan Assessment: * Sudden episode of extreme tiredness, and partial unresponsiveness, without loss of consciousness. Exact cause uncertain. Rule out seizure, vs stroke/TIA. Rule out sleep disorder. * History of cerebral palsy, with paraparesis. * History of breast cancer * Anxiety, depression, multiple stressors. Plan: * MRI of the brain without contrast, evaluate for acute CVA * 2-D echo with bubble study to rule out PFO * CTA head and neck showed: No evidence of occlusive disease involving the carotid arteries within the neck or within the intracranial circulation. * EEG rule out epileptiform activity. * Patient planning to undergo sleep study as outpatient, which I strongly agree with. * Fasting a.m. lipid panel with cholesterol 210, LDL 127, HDL 50, triglycerides 161. * Hemoglobin A1c 5.7 * Optimize control of blood pressure * Start aspirin regimen. Patient received a loading dose of aspirin 325 mg in the ER, and now on maintenance aspirin 81 mg. * Neuro checks * Telemetry monitoring rule out any arrhythmia * DVT prophylaxis: Lovenox 40 mg subcu daily. * Dr. Gianni Luica will resume neurology service in the morning. Thank you for the consult.
[2023-03-19] MEDS: ENOXAPARIN 40 MG/0.4 ML SYRINGE SQ SCH (09:14)
[2023-03-19] MEDS: TROSPIUM CHLORIDE 20 MG TABLET PO SCH ×2 (09:14→19:52)
[2023-03-19] MEDS: ASPIRIN 81 MG PO SCH (09:14)
[2023-03-19] MEDS: Vilazodone Hcl [Viibryd] 40 MG Tablet PO SCH (09:15)
--- NOTE | 2023-03-19 11:42 | CA ---
Transthoracic Echo Report Name: Renee Myrick Age: 47 Gender: F : 1975 Exam Date: 03/19/2023 10:22 Exam Location: [facility] Ht (in): 61 Wt (lb): 200 Ordering Physician: Davida Martinez MD Attending/Referring Phys: Ward Supervisor Zoey Titus RDCS Procedure CPT: Indications: Syncope vs seizure, has hx of PFO Cardiac Hx: Technical Quality: Fair Contrast 1: Total Dose (mL): Contrast 2: Total Dose (mL): MEASUREMENTS (Male / Female) Normal Values 2D ECHO LV Diastolic Diameter PLAX 4.1 cm 4.2 - 5.9 / 3.9 - 5.3 cm LV Systolic Diameter PLAX 2.6 cm IVS Diastolic Thickness 0.7 cm 0.6 - 1.0 / 0.6 - 0.9 cm LVPW Diastolic Thickness 0.8 cm 0.6 - 1.0 / 0.6 - 0.9 cm LV Relative Wall Thickness 0.4 RV Internal Dim ED PLAX 2.5 cm LA Systolic Diameter LX 2.5 cm 3.0 - 4.0 / 2.7 - 3.8 cm LA Volume 30.8 cm??? 18 - 58 / 22 - 52 cm??? LA Volume Index 15.2 cm???/m??? 16 - 28 cm???/m??? M-MODE Aortic Root Diameter MM 3.0 cm MV E Point Septal Separation 0.4 cm AV Cusp Separation MM 1.9 cm DOPPLER AV Peak Velocity 118.9 cm/s AV Peak Gradient 5.7 mmHg MV Area PHT 4.8 cm??? Mitral E Point Velocity 75.0 cm/s Mitral A Point Velocity 66.9 cm/s Mitral E to A Ratio 1.1 MV Deceleration Time 158.2 ms MV E' Velocity 12.7 cm/s Mitral E to MV E' Ratio 5.9 FINDINGS Left Ventricle Left ventricular ejection fraction is estimated at 55-60 %. Left ventricular cavity size normal. Left ventricular wall thickness normal. Right Ventricle Normal right ventricular size and function. Unable to estimate the right ventricular systolic pressure. Right Atrium Normal right atrial size. Negative agitated saline bubble study for right to left shunt. Left Atrium Normal left atrial size. Mitral Valve Structurally normal mitral valve. No mitral stenosis, regurgitation or prolapse. Aortic Valve Trileaflet aortic valve. No aortic valve stenosis or regurgitation. Tricuspid Valve Structurally normal tricuspid valve. No tricuspid stenosis, regurgitation or prolapse. Pulmonic Valve Structurally normal pulmonic valve. No pulmonic regurgitation. Pericardium No pericardial effusion. Aorta Normal size aortic root and proximal ascending aorta. CONCLUSIONS Normal LV systolic function Negative bubble study for [id number] shunt Consider transesophageal echo to definitively rule out intracardiac shunt Previewed by: Dr. Marvin Herron MD (Electronically Signed) Final Date: 19 March 2023 11:41
--- NOTE | 2023-03-19 13:41 | P.PN ---
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 Patient presented to the emergency department within the TPA window however patient had significant improvement in symptoms. Oncology and urology was contacted and it was decided to defer TPA. While in ER patient had significant improvement in her symptoms. No other neurological deficit was noted. On assessment patient denied any further numbness, weakness denies head injuries, fever, chills, cough. * Workup in ER included CT head which was negative for acute intracranial process, CT angina head and neck was negative as well * Blood work obtained showed WBC within normal limits hemoglobin within normal limits platelet count within normal limits. PT 16.1, INR 1.6 * Serum chemistry showed sodium 138 potassium 3.6 BUN/creatinine and creatinine within normal limits. Creatinine kinase 141 * Urinalysis is negative, urine drug screen positive for benzodiazepines expected, takes at home * 03/19/23: Patient seen and evaluated bedside, MRI brain ordered, lipid profile reviewed, care plan discussed with neurology. Patient appears back at baseline orthostatic vitals negative REVIEW OF SYSTEMS: Slurred speech present on admission resolved CONSTITUTIONAL: No fever, no malaise, no fatigue. HEENT: No recent visual problems or hearing problems. Denied any sore throat. CARDIOVASCULAR: No chest pain, orthopnea, PND, no palpitations, no syncope. PULMONARY: No shortness of breath, no cough, no hemoptysis. GASTROINTESTINAL: No diarrhea, no nausea, no vomiting, no abdominal pain. NEUROLOGICAL: No headaches, no weakness, no numbness. HEMATOLOGICAL: Denies any bleeding or petechiae. GENITOURINARY: Denies any burning micturition, frequency, or urgency. MUSCULOSKELETAL/RHEUMATOLOGICAL: Denies any joint pain, swelling, or any muscle pain. ENDOCRINE: Denies any polyuria or polydipsia. PHYSICAL EXAMINATION: GENERAL: The patient is alert and oriented x3, not in any acute distress. Well developed, well nourished. HEENT: Pupils are round and equally reacting to light. EOMI CARDIOVASCULAR: S1 and S2 present. No murmurs, rubs, or gallops. PULMONARY: Chest is clear to auscultation, no wheezing or crackles. ABDOMEN: Soft, nontender, nondistended, normoactive bowel sounds. No palpable organomegaly. MUSCULOSKELETAL: No joint swelling or deformity. EXTREMITIES: No cyanosis, clubbing, or pedal edema. NEUROLOGICAL: Gross neurological examination did not reveal any focal deficits. At baseline chronic lower extremity weakness from spastic paresis SKIN: No rashes. Objective - Vital Signs Vital signs: Vital Signs Temp 98.2 F 03/19/23 09:12 Pulse 116 H 03/19/23 11:40 Resp 18 03/19/23 11:40 BP 115/63 03/19/23 11:40 Pulse Ox 95 03/19/23 11:40 FiO2 21 03/18/23 07:55 Intake & Output 03/18/23 03/19/23 03/19/23 18:59 06:59 18:59 Intake Total 1340 20 430 Output Total 150 Balance 1190 20 430 Intake: IV 20 20 10 Invasive Line 1 10 Invasive Line 2 10 20 10 Oral 1320 0 420 Output: Urine 150 Other: Voiding Method Toilet Toilet Toilet Diaper # Voids 2 1 - Labs CBC & Chem 7: 03/17/23 15:37 03/17/23 15:37 Labs: Abnormal Lab Results - Last 24 Hours (Table) 03/18/23 Range/Units 15:37 Triglycerides 161.00 H (0.00-149.00) mg/dL Cholesterol 210.00 H (0.00-200.00) mg/dL Assessment and Plan Assessment: Assessment and plan * Slurred speech or rule out TIA versus CVA * History of spastic paresis lower extremity * Dyslipidemia * History of cerebral palsy * History of asthma * Consultation obtained from neurology, CT head CT angina head and neck negative for acute intracranial process, MRI brain ordered, continue neuro checks * In regards to hyperlipidemia, continue Lipitor, lipid profile reviewed * Prostatic vitals negative, HbA1c within normal limits, vitamin B12 and folate reviewed * In regards to history of asthma albuterol as needed * CODE STATUS is full code *
--- NOTE | 2023-03-19 14:50 | P.PN ---
Subjective Progress Note Date: 03/19/23 I am seeing the patient for the first time during this admission. He is referred to Dr. Martinez's note for further details. Patient is accompanied with her sister who helps with some of the history. Seems the patient has history of cerebral palsy but is a highly functional and has a spastic quadrant plegia worse in the lower than upper and uses crutches. She drives around without any issues works. It seems that she presented because of episodes of patient was walking slower than baseline and is unusual for her and she felt she was delayed and per the sister the patient was staring off felt like she was about to pass out but did not and was slurring her speech and was tired and did not feel well. The episode lasted for hours. She had a similar presentation about a year and half ago and she stated that was brushed off when she went to a different outside hospital. She denies any history of seizure. Objective - Vital Signs Vital signs: Vital Signs Temp 98.2 F 03/19/23 09:12 Pulse 116 H 03/19/23 11:40 Resp 18 03/19/23 11:40 BP 115/63 03/19/23 11:40 Pulse Ox 95 03/19/23 11:40 FiO2 21 03/18/23 07:55 Intake & Output 03/18/23 03/19/23 03/19/23 18:59 06:59 18:59 Intake Total 1340 20 670 Output Total 150 Balance 1190 20 670 Intake: IV 20 20 10 Invasive Line 1 10 Invasive Line 2 10 20 10 Oral 1320 0 660 Output: Urine 150 Other: Voiding Method Toilet Toilet Toilet Diaper # Voids 2 1 - Exam General: Lying in bed and is not in acute distress. Neuro: Patient is awake alert oriented to self, place and time. Is following simple commands. No aphasia and no neglect. Visual pak are full to confrontation. No facial weakness. No dysarthria. Motor: His strength as has dexterity issue of the uppers which is old otherwise strength in upper's are 5 out of 5. In the lower she has spasticity which is old but is able to lift up above gravity. - Labs CBC & Chem 7: 03/17/23 15:37 03/17/23 15:37 Labs: Abnormal Lab Results - Last 24 Hours (Table) 03/18/23 Range/Units 15:37 Triglycerides 161.00 H (0.00-149.00) mg/dL Cholesterol 210.00 H (0.00-200.00) mg/dL Assessment and Plan Assessment: * Sudden episode of extreme tiredness, and partial unresponsiveness, staring off, without loss of consciousness, felt she is having difficulty, delayed and felt she was about to pass out with dysarthria: Rule outs underlying seizure. I feel stroke is on the differential but I feel less likely compared to the seizure. * History of cerebral palsy, with paraparesis. * History of breast cancer * Anxiety, depression, multiple stressors. Plan: * MRI of the brain without contrast, evaluate for acute CVA * 2-D echo: Reported as normal left ventricle. Function. Negative bubble study for right to left shunt. Consider transesophageal echocardiogram to definitely rule out intracardiac shunt. * CTA head and neck showed: No evidence of occlusive disease involving the carotid arteries within the neck or within the intracranial circulation. * EEG rule out epileptiform activity and pending report. * Fasting a.m. lipid panel with cholesterol 210, LDL 127, HDL 50, triglycerides 161. * Hemoglobin A1c 5.7 * Optimize control of blood pressure * Per Dr. Martinez, start aspirin regimen and now on maintenance aspirin 81 mg. * If the EEG is negative for seizure I recommend a sleep deprived EEG and prolonged EEG as an outpatient since the patient had an episode this time and had a similar episode about a year and half ago and she stated the year and half ago was crushed off. * Patient was notified of the consideration of being on antiepileptic the drug such as Lamictal for concern for seizure and she said she'll think about it. No Keppra because of the she has underlying depression and anxiety which she Keppra can cause worsening of moodiness and wants to avoid any worsening. * Seizure precaution seizure pads * Neuro checks * Telemetry monitoring rule out any arrhythmia * DVT prophylaxis: Lovenox 40 mg subcu daily. * Upon discharge recommend the patient to follow-up with a neurologist as an outpatient within 1-2 weeks. The plan was discussed with the patient, her sister who is at bedside as well as her nurse. We'll continue to follow. Time with Patient: Less than 30
[2023-03-19 15:48] VITALS: RESP 17
--- NOTE | 2023-03-19 19:28 | EEG ---
ELECTROENCEPHALOGRAM REPORT CLINICAL HISTORY: This is a 47-year-old woman with episode of staring off and confusion. The video EEG is obtained to evaluate for seizure and epileptiform activity. RELEVANT MEDICATION: Ativan. EEG TYPE: A routine 21-channel EEG with video using the 10/20 electrode placement system. DESCRIPTION: Wakefulness is obtained. During awake state, the posterior-dominant rhythm consists of actually pro-[id number] voltage of 10 Hz activity. There is no physiological stage II sleep architecture. There is no focal slowing. INTERICTAL AND ICTAL: None. ACTIVATION PROCEDURE: Photic stimulation did not evoke a posterior driving response. There is no abnormality during photic stimulation. Hyperventilation is not performed. CLINICAL INTERPRETATION: This is a normal routine EEG. There is no focal slowing, epileptiform discharge, or seizure on the EEG. A normal routine EEG does not rule out underlying epilepsy. Clinical correlation is recommended. MMSARAH / ANUSHA: [id number] /
[2023-03-19] MEDS: LORazepam 1 MG TAB PO SCH (19:52)
[2023-03-19] MEDS ORDERED: ATORVASTATIN 40 MG TAB PO SCH (21:00)
[2023-03-20] MEDS: TROSPIUM CHLORIDE 20 MG TABLET PO SCH (09:09)
[2023-03-20] MEDS: Vilazodone Hcl [Viibryd] 40 MG Tablet PO SCH (09:09)
[2023-03-20] MEDS: ASPIRIN 81 MG PO SCH (09:09)
[2023-03-20] MEDS: ENOXAPARIN 40 MG/0.4 ML SYRINGE SQ SCH (09:09)
[2023-03-20 11:53] VITALS: BP 137/93; PULSE 94; TEMP 97.7
[2023-03-20] MEDS ORDERED: lamoTRIgine 25 MG TAB PO SCH (12:00)
--- NOTE | 2023-03-20 12:01 | MR ---
EXAMINATION TYPE: MR brain wo con DATE OF EXAM: 03/20/2023 11:10 AM CLINICAL INDICATION:Female, 47 years old with history of Neuro deficit, acute, stroke suspected; PHH, Neuro deficit COMPARISON: 03/17/2023. MRI 08/31/2015. TECHNIQUE: Multi planar, multi sequence imaging was performed through the brain including: T1, T2, In version recovery, Diffusion weighted imaging, and gradient echo imaging. No gadolinium was given. FINDINGS: Similar dilation of the ventricular system. The tate-white junctions, ventricular system, and cisterns appear unremarkable. Midline structures sh ow no abnormality. Diffusion-weighted imaging shows no evidence of restricted diffusion. The suscepti bility weighted images do not reveal any evidence for micro-hemorrhage. The bone marrow signal is within normal limits. Paranasal sinuses and mastoid air cells: Bilateral high T2 signal in the mastoid air cells. Visualized orbits: Orbital contents are intact. IMPRESSION: 1. No evidence of intracranial mass or acute/subacute infarct. 2. Trace bilateral mastoid air cell effusion.3. Dilation of the trigones of the lateral ventricles si milar to prior and dating back to 2015.
[2023-03-20] MEDS ORDERED: CIPROFLOXACIN 0.3% OPHTH SOLN 5 ML BTL RIGHT EYE SCH (12:30)
--- NOTE | 2023-03-20 13:06 | P.DS ---
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 Patient presented to the emergency department within the TPA window however patient had significant improvement in symptoms. Oncology and urology was contacted and it was decided to defer TPA. While in ER patient had significant improvement in her symptoms. No other neurological deficit was noted. On assessment patient denied any further numbness, weakness denies head injuries, fever, chills, cough. * Workup in ER included CT head which was negative for acute intracranial process, CT angina head and neck was negative as well * Blood work obtained showed WBC within normal limits hemoglobin within normal limits platelet count within normal limits. PT 16.1, INR 1.6 * Serum chemistry showed sodium 138 potassium 3.6 BUN/creatinine and creatinine within normal limits. Creatinine kinase 141 * Urinalysis is negative, urine drug screen positive for benzodiazepines expected, takes at home * 03/19/23: Patient seen and evaluated bedside, MRI brain ordered, lipid profile reviewed, care plan discussed with neurology. Patient appears back at baseline orthostatic vitals negative * 03/20/2023 : Patient seen and evaluated bedside, care plan discussed with neurology, MRI brain negative. Per neurology recommendation is to continue Lamictal with tapered dose ordered. Please see Taper instructions. Neurology recommended Lamictal which has been started plan to taper up Lamictal as instructed and outpatient follow-up with neurology. Patient okay with starting Lamictal. She noted to have right eye conjunctiva injected, cipro floxacin eyedrops given REVIEW OF SYSTEMS: Slurred speech present on admission resolved CONSTITUTIONAL: No fever, no malaise, no fatigue. HEENT: No recent visual problems or hearing problems. Denied any sore throat. CARDIOVASCULAR: No chest pain, orthopnea, PND, no palpitations, no syncope. PULMONARY: No shortness of breath, no cough, no hemoptysis. GASTROINTESTINAL: No diarrhea, no nausea, no vomiting, no abdominal pain. NEUROLOGICAL: No headaches, no weakness, no numbness. HEMATOLOGICAL: Denies any bleeding or petechiae. GENITOURINARY: Denies any burning micturition, frequency, or urgency. MUSCULOSKELETAL/RHEUMATOLOGICAL: Denies any joint pain, swelling, or any muscle pain. ENDOCRINE: Denies any polyuria or polydipsia. PHYSICAL EXAMINATION: GENERAL: The patient is alert and oriented x3, not in any acute distress. Well developed, well nourished. HEENT: Pupils are round and equally reacting to light. EOMI right eye co njunctiva injected CARDIOVASCULAR: S1 and S2 present. No murmurs, rubs, or gallops. PULMONARY: Chest is clear to auscultation, no wheezing or crackles. ABDOMEN: Soft, nontender, nondistended, normoactive bowel sounds. No palpable organomegaly. MUSCULOSKELETAL: No joint swelling or deformity. EXTREMITIES: No cyanosis, clubbing, or pedal edema. NEUROLOGICAL: Gross neurological examination did not reveal any focal deficits. At baseline chronic lower extremity weakness from spastic paresis SKIN: No rashes. Assessment: Assessment and plan * Slurred speech , CVA ruled out * Suspect partial seizure per neurology started on Lamictal * History of spastic paresis lower extremity * Dyslipidemia * History of cerebral palsy * History of asthma * Right eye conjunctivitis * Consultation obtained from neurology, CT head CT angina head and neck negative for acute intracranial process, MRI brain negative for acute CVA. Neurology started patient on Lamictal tapered dose, recommendation to follow up with outpatient neurology * Lamital dose 25 mg daily for 1 week, then 25 mg twice a day for 1 week then 50 mg in morning and 25 mg in evening for 1 week then 50 mg twice a day for 1 week and follow-up with neurology for further dose adjustment * In regards to hyperlipidemia, continue Lipitor, lipid profile reviewed, continue aspirin * Prostatic vitals negative, HbA1c within normal limits, vitamin B12 and folate reviewed * In regards to history of asthma albuterol as needed * Last 2 right eye conjunctivitis patient given ciprofloxacin eyedrops Patient Condition at Discharge: Stable Plan - Discharge Summary Discharge Rx Participant: Yes New Discharge Prescriptions: New Ciprofloxacin Ophth Soln [Ciloxan 0.3% Ophth Soln] 1 drops RIGHT EYE Q6HR 3 Days #5 ml lamoTRIgine [LaMICtal] 25 mg PO DAILY 30 Days #70 tab Atorvastatin [Lipitor] 40 mg PO HS 30 Days #30 tab Aspirin 81 mg PO DAILY 30 Days #30 tab Continue Albuterol Inhaler [Ventolin Hfa Inhaler] 1 - 2 puff INHALATION RT-Q6H PRN #1 inhaler PRN Reason: Shortness Of Breath Vilazodone HCl [Viibryd] 40 mg PO DAILY Fesoterodine Fumarate [Fesoterodine Fumarate ER] 8 mg PO DAILY LORazepam [Ativan] 2 mg PO HS Discharge Medication List Albuterol Inhaler [Ventolin Hfa Inhaler] 1 - 2 puff INHALATION RT-Q6H PRN #1 inhaler 03/20/19 [Rx] Fesoterodine Fumarate [Fesoterodine Fumarate ER] 8 mg PO DAILY 03/17/23 [His tory] LORazepam [Ativan] 2 mg PO HS 03/17/23 [History] Vilazodone HCl [Viibryd] 40 mg PO DAILY 03/17/23 [History] Aspirin 81 mg PO DAILY 30 Days #30 tab 03/20/23 [Rx] Atorvastatin [Lipitor] 40 mg PO HS 30 Days #30 tab 03/20/23 [Rx] Ciprofloxacin Ophth Soln [Ciloxan 0.3% Ophth Soln] 1 drops RIGHT EYE Q6HR 3 Days #5 ml 03/20/23 [Rx] lamoTRIgine [LaMICtal] 25 mg PO DAILY 30 Days #70 tab 03/20/23 [Rx] Follow up Appointment(s)/Referral(s): Js Elliott DO [Primary Care Provider] - 1-2 days (You will need a referral to follow-up with Neurology, dose of lamictal needs to be followed ) Patient Instructions/Handouts: New-Onset Seizure in Adults (ED) Activity/Diet/Wound Care/Special Instructions: LAMICTAL DOSE INSTRUCTIONS TAPER DOSE TAKE Lamital oral 25 mg daily for 1 week then 25 mg twice a day for 1 week then 50 mg in morning and 25 mg in evening for 1 week then 50 mg twice a day for 1 week and follow-up with neurology for further dose adjustment Discharge Disposition: HOME SELF-CARE
--- NOTE | 2023-03-20 16:31 | P.PN ---
Subjective Progress Note Date: 03/20/23 I am following-up with patient and feels back to baseline. No further episodes of confusion, staring off. Objective - Vital Signs Vital signs: Vital Signs Temp 97.7 F 03/20/23 11:51 Pulse 94 03/20/23 11:51 Resp 17 03/20/23 11:51 BP 137/93 03/20/23 11:51 Pulse Ox 97 03/20/23 11:51 FiO2 21 03/18/23 07:55 Intake & Output 03/19/23 03/20/23 03/20/23 18:59 06:59 18:59 Intake Total 850 240 59 Output Total 250 Balance 850 -10 59 Intake: IV 10 Invasive Line 2 10 Oral 840 240 59 Output: Urine 250 Other: Voiding Method Toilet Toilet Toilet Diaper Diaper Diaper # Voids 1 1 2 - Exam General: Lying in bed and is not in acute distress. Neuro: Patient is awake alert oriented to self, place and time. Is following simple commands. No aphasia and no neglect. Visual pak are full to confrontation. No facial weakness. No dysarthria. Motor: His strength as has dexterity issue of the uppers which is old otherwise strength in upper's are 5 out of 5. In the lower she has spasticity which is old but is able to lift up above gravity. - Labs CBC & Chem 7: 03/17/23 15:37 03/17/23 15:37 Assessment and Plan Assessment: * Sudden episode of extreme tiredness, and partial unresponsiveness, staring off, without loss of consciousness, felt she is having difficulty, delayed and felt she was about to pass out with dysarthria: Rule outs underlying seizure. I feel stroke is on the differential but I feel less likely compared to the seizure. * History of cerebral palsy, with paraparesis. * History of breast cancer * Anxiety, depression, multiple stressors. Plan: * MRI of the brain without contrast, evaluate for acute CVA: Completed but pending official report. I personally did not feel there is acute or subacute ischemic stroke * 2-D echo: Reported as normal left ventricle. Function. Negative bubble study for right to left shunt. Consider transesophageal echocardiogram to definitely rule out intracardiac shunt. * CTA head and neck showed: No evidence of occlusive disease involving the carotid arteries within the neck or within the intracranial circulation. * EEG: Is normal. * Recommend a prolonged EEG or Epilepsy monitoring unit as outpatient to rule out any seizure or discharges not seen on routine EEG. This needs to be addressed by outpatient neurologist. * Fasting a.m. lipid panel with cholesterol 210, LDL 127, HDL 50, triglycerides 161. * Hemoglobin A1c 5.7 * Optimize control of blood pressure * Per Dr. Martinez, start aspirin regimen and now on maintenance aspirin 81 mg. * If the EEG is negative for seizure I recommend a sleep deprived EEG and prolonged EEG as an outpatient since the patient had an episode this time and had a similar episode about a year and half ago and she stated the year and half ago was crushed off. * I started the patient on Lamictal for suspicious of seizure. I started her on 25mg daily and to up 25mg every week until 100mg bid. 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 * Seizure precaution seizure pads * Neuro checks * Telemetry monitoring rule out any arrhythmia * DVT prophylaxis: Lovenox 40 mg subcu daily. * Patient was notified because of suspicion of seizure, that to avoid driving for 6 months until seizure free, avoid heights, swim unassisted or using heavy machinery. * Upon discharge recommend the patient to follow-up with a neurologist as an outpatient within 1-2 weeks. * The plan was discussed with the patient, primary attending as well as her nurse. Time with Patient: Less than 30
[2023-03-21] MEDS ORDERED: lamoTRIgine 25 MG TAB PO SCH (09:00)
== END 2023-03-20 13:53 | disposition home or self-care (01) | DRG 58 ==
LOC: EC 15:04 → 3SCARD 17:35
PROVIDERS: ADMIT Internal Medicine; ATTEND Internal Medicine
PROC: 4A10X4Z Monitoring of Central Nervous Electrical Activity, External Approach (ICD-10-PCS; principal; 2023-03-17)
DX: R47.81 Slurred speech (principal); E78.5 Hyperlipidemia, unspecified; F32.A Depression, unspecified; F41.0 Panic disorder [episodic paroxysmal anxiety]; I10 Essential (primary) hypertension; G80.0 Spastic quadriplegic cerebral palsy; J45.909 Unspecified asthma, uncomplicated; G80.9 Cerebral palsy, unspecified; R47.1 Dysarthria and anarthria; Z82.49 Family history of ischemic heart disease and other diseases of the circulatory system; Z85.3 Personal history of malignant neoplasm of breast; Z91.041 Radiographic dye allergy status; Z83.3 Family history of diabetes mellitus; Z91.81 History of falling; Z87.01 Personal history of pneumonia (recurrent); Z90.49 Acquired absence of other specified parts of digestive tract; Z92.21 Personal history of antineoplastic chemotherapy; Z92.3 Personal history of irradiation
CPT/HCPCS: 36415; 70450; 70496; 70498; 70551; 71046; 80053; 80061; 80306; 80320; 81003; 82550; 82607; 82746; 83036; 84484; 85025; 85610; 85730; 93005; 93306; 94760; 95816; 96361; 96374; 96375; 99291

== ENCOUNTER 2023-05-04 13:09 | Observation (INO) | payer OTHER ==
[2023-05-04 13:22] LABS: Glucose,Whole Blood 140 mg/dL (70-110)
[2023-05-04 14:03] LABS: VBG PH 7.4 (7.31-7.41)
[2023-05-04 14:14] LABS: INR 0.9 (<1.2); Partial Thromboplastin Time 22.1 sec (22.0-30.0); Prothrombin Time 10.5 sec (10.0-12.5)
--- NOTE | 2023-05-04 14:16 | ED ---
General Adult HPI - General Chief complaint: Neuro Symptoms/Deficit Stated complaint: Neuro Symptoms Time Seen by Provider: 05/04/23 13:19 Source: patient, RN notes reviewed, old records reviewed Mode of arrival: ambulatory Limitations: no limitations - History of Present Illness Initial comments: 47-year-old female presenting with confusion. Patient had apparently driven through a drive-through restaurant where she had ordered but then left without receiving her food. She was confused at the time. She does admit to not sleeping well. She also reports previous TIA with similar symptoms. She denies focal numbness or weakness. She started admit that she has not been sleeping well and is currently undergoing evaluation for sleep apnea. - Related Data Home Medications Medication Instructions Recorded Confirmed Fesoterodine Fumarate 8 mg PO DAILY 03/17/23 03/17/23 [Fesoterodine Fumarate ER] LORazepam [Ativan] 2 mg PO HS 03/17/23 03/17/23 Vilazodone HCl [Viibryd] 40 mg PO DAILY 03/17/23 03/17/23 Previous Rx's Medication Instructions Recorded Albuterol Inhaler [Ventolin Hfa 1 - 2 puff INHALATION RT-Q6H PRN 03/20/19 Inhaler] #1 inhaler Aspirin 81 mg PO DAILY 30 Days #30 tab 03/20/23 Atorvastatin [Lipitor] 40 mg PO HS 30 Days #30 tab 03/20/23 Ciprofloxacin Ophth Soln [Ciloxan 1 drops RIGHT EYE Q6HR 3 Days #5 ml 03/20/23 0.3% Ophth Soln] lamoTRIgine [LaMICtal] 25 mg PO DAILY 30 Days #70 tab 03/20/23 Allergies Allergy/AdvReac Type Severity Reaction Status Date / Time chlorhexidine Allergy Rash/Hives Verified 03/17/23 16:51 Iodinated Contrast Media Allergy Rash/Hives Verified 03/17/23 16:51 succinylcholine AdvReac Severe EXACERBATED Verified 03/17/23 16:51 SPASTICITY IN LEGS Review of Systems ROS Statement: Those systems with pertinent positive or pertinent negative responses have been documented in the HPI. ROS Other: All systems not noted in ROS Statement are negative. Past Medical History Past Medical History: Asthma, Cancer, Neurologic Disorder, Pneumonia, Respiratory Disorder, Thyroid Disorder Additional Past Medical History / Comment(s): cerebral palsy diagnosed 10 month old, spastic quadraplegic, uses forearm crutches is fall risk, EXERCISE INDUCED ASTHMA MILD, not currently taking thyroid medication, right breast cancer diagnosed 04/27/16 with surgery, chemo, and radiation 05/24/16, chronic ear infections-r/t ear canal development, tubes in ears, possible sleep apnea- patient not diagnosed; [facility] past r/t r/o stroke History of Any Multi-Drug Resistant Organisms: None Reported Date of last positivie culture/infection: 03/09/20 MDRO Source:: ESBL URINE Past Surgical History: Cholecystectomy, Ear Surgery, Orthopedic Surgery, Tonsillectomy Additional Past Surgical History / Comment(s): ORIF RT LEG, W/ SUMANTH, SCREWS. TENDON LENGTHENING IN FEET, LEGS., R sided lumpectomy with sentinel lymph node removal, bowel perforiation post gallbladder removal-had to go back to repair with Dr. Acosta. Past Anesthesia/Blood Transfusion Reactions: Previous Problems w/ Anesthesia Additional Past Anesthesia/Blood Transfusion Reaction / Comment(s): SUCCINYLCHOLINE GREATLY INCREASES SPASTICITY LEGS. Past Psychological History: Anxiety, Depression, Panic Disorder Smoking Status: Former smoker Past Alcohol Use History: None Reported Past Drug Use History: None Reported - Past Family History Mother Family Medical History: Cancer Additional Family Medical History / Comment(s): lung cancer, has passed Father Family Medical History: Diabetes Mellitus, Hypertension Additional Family Medical History / Comment(s): extensive heart history General Exam Limitations: no limitations General appearance: in no apparent distress, lethargic Head exam: Present: atraumatic, normocephalic Eye exam: Present: normal appearance, PERRL ENT exam: Present: normal exam Neck exam: Present: normal inspection. Absent: tenderness, meningismus Respiratory exam: Present: normal lung sounds bilaterally. Absent: respiratory distress, wheezes Cardiovascular Exam: Present: regular rate, normal rhythm GI/Abdominal exam: Present: soft. Absent: distended, tenderness Extremities exam: Present: normal inspection, normal capillary refill Neurological exam: Present: alert, oriented X3, CN II-XII intact, other (Slow to respond but able to answer all questions.). Absent: motor sensory deficit Skin exam: Present: warm, dry, intact Course Vital Signs 05/04/23 13:20 Temperature 96.9 F L Pulse Rate 88 Respiratory 20 Rate Blood Pressure 110/86 O2 Sat by Pulse 95 Oximetry - Reevaluation(s) Reevaluation #1: 05/04/23 1500 Patient reevaluated, still somewhat lethargic. Will be observed for acute confusion and altered mental status. Urinalysis and urine drug screen are pending. Medical Decision Making - Medical Decision Making Was pt. sent in by a medical professional or institution (, PA, ASSISTANT PROFESSOR OF RELIGION, urgent care, hospital, or long-term...) When possible be specific @ -No Did you speak to anyone other than the patient for history (EMS, parent, family, police, friend...)? What history was obtained from this source @ -[Patient's sister at bedside able to contribute to history. Did you review nursing and triage notes (agree or disagree)? Why? @ -I reviewed and agree with nursing and triage notes Were old charts reviewed (outside hosp., previous admission, EMS record, old EKG, old radiological studies, urgent care reports/EKG's, long-term records)? Report findings @ -No old charts were reviewed Differential Diagnosis (chest pain, altered mental status, abdominal pain women, abdominal pain men, vaginal bleeding, weakness, fever, dyspnea, syncope, headache, dizziness, GI bleed, back pain, seizure, CVA, palpatations, mental health, musculoskeletal)? @ -[Differential CVA Ischemic stroke, hemorrhagic stroke, brain tumor, atypical migraine, Wernicke's encephalopathy, seizure, multiple sclerosis, meningitis, encephalitis, hypoglycemia, Guillain-Titus, electrolytes disturbance, myasthenia gravis.... T his is not meant to be an all-inclusive list EKG interpreted by me (3pts min.). @ -[Sinus rhythm rate of 86, NM interval 151, QRS duration 71, QTC [address] segment elevation. X-rays interpreted by me (1pt min.). @Chest x-ray negative for acute cardio pulmonary findings. CT interpreted by me (1pt min.). @CT brain negative for acute intracranial hemorrhage or mass effect U/S interpreted by me (1pt. min.). @ -None done What testing was considered but not performed or refused? (CT, X-rays, U/S, labs)? Why? @ -None What meds were considered but not given or refused? Why? @ -None Did you discuss the management of the patient with other professionals (pr ofessionals i.e. , PA, ASSISTANT PROFESSOR OF RELIGION, lab, RT, psych nurse, director of social media marketing, advanced practice rn, teacher, custody officer, egg caser)? Give summary @ -[EMH Was smoking cessation discussed for >3mins.? @ -No Was critical care preformed (if so, how long)? @ -No Were there social determinants of health that impacted care today? How? (Homelessness, low income, unemployed, alcoholism, drug addiction, transpo rtation, low edu. Level, literacy, decrease access to med. care, halfway, rehab)? @ -No Was there de-escalation of care discussed even if they declined (Discuss DNR or withdrawal of care, Hospice)? DNR status @ -No What co-morbidities impacted this encounter? (DM, HTN, Smoking, COPD, CAD, Cancer, CVA, ARF, Chemo, Hep., AIDS, mental health diagnosis, sleep apnea, morbid obesity)? @Cerebral palsy, tia Was patient admitted / discharged? Hospital course, mention meds given and route, prescriptions, significant lab abnormalities, going to OR and other pertinent info. @ 47 -year-old female presenting for evaluation of acute confusion and lethargy. Patient does take lorazepam but states she did not take this today. She has bilateral lower extremity weakness without focality. Speech is clear. No facial droop. Head CT is negative for intracranial hemorrhage or mass effect. She has normal CBC, normal CMP, normal VBG, urinalysis urine drug screen pending. Patient did not have reported seizure activity however there was concern with previous episodes that she may have had seizure. She has not returned to baseline and is still lethargic. She will be admitted for acute confusion and altered mental status. Neurology placed on consult. Undiagnosed new problem with uncertain prognosis? @ -No Drug Therapy requiring intensive monitoring for toxicity (Heparin, Nitro, Insulin, Cardizem)? @ -No Were any procedures done? @ -No Diagnosis/symptom? @ -Altered mental status Acute, or Chronic, or Acute on Chronic? @Acute Uncomplicated (without systemic symptoms) or Complicated (systemic symptoms)? @ -default Side effects of treatment? @ -No Exacerbation, Progression, or Severe Exacerbation? @ -No Poses a threat to life or bodily function? How? (Chest pain, [place], [place], pneumonia, PE, COPD, DKA, ARF, appy, cholecystitis, CVA, Diverticulitis, Homicidal, Suicidal, threat to staff... and all critical care pts) @ -moderate risk - Lab Data Result diagrams: 05/04/23 13:37 05/04/23 13:37 Lab Results 05/04/23 05/04/23 05/04/23 Range/Units 13:19 13:37 13:37 WBC 8.2 (3.8-10.6) k/uL RBC 4.89 (3.80-5.40) m/uL Hgb 14.4 (11.4-16.0) gm/dL Hct 42.6 (34.0-46.0) % MCV 87.1 (80.0-100.0) fL MCH 29.5 (25.0-35.0) pg MCHC 33.9 (31.0-37.0) g/dL RDW 12.4 (11.5-15.5) % Plt Count 212 (150-450) k/uL MPV 7.5 Neutrophils % 65 % Lymphocytes % 25 % Monocytes % 6 % Eosinophils % 3 % Basophils % 1 % Neutrophils # 5.3 (1.3-7.7) k/uL Lymphocytes # 2.1 (1.0-4.8) k/uL Monocytes # 0.5 (0-1.0) k/uL Eosinophils # 0.3 (0-0.7) k/uL Basophils # 0.0 (0-0.2) k/uL PT 10.5 (10.0-12.5) sec INR 0.9 (<1.2) APTT 22.1 (22.0-30.0) sec VBG pH (7.31-7.41) VBG pCO2 (37-51) mmHg VBG HCO3 (24-28) mmol/L Sodium (137-145) mmol/L Potassium (3.5-5.1) mmol/L Chloride (98-107) mmol/L Carbon Dioxide (22-30) mmol/L Anion Gap mmol/L BUN (7-17) mg/dL Creatinine (0.52-1.04) mg/dL Est GFR (CKD-EPI)AfAm (>60 ml/min/1.73 sqM) Est GFR (CKD-EPI)NonAf (>60 ml/min/1.73 sqM) Glucose (74-99) mg/dL POC Glucose (mg/dL) 140 H (70-110) mg/dL POC Glu Armored Service Technician ID Leighann Ruiz Calcium (8.4-10.2) mg/dL Total Bilirubin (0.2-1.3) mg/dL AST (14-36) U/L ALT (4-34) U/L Alkaline Phosphatase (38-126) U/L Creatine Kinase (30-135) U/L Troponin I (0.000-0.034) ng/mL Total Protein (6.3-8.2) g/dL Albumin (3.5-5.0) g/dL Serum Alcohol mg/dL 05/04/23 05/04/23 05/04/23 Range/Units 13:37 13:37 13:37 WBC (3.8-10.6) k/uL RBC (3.80-5.40) m/uL Hgb (11.4-16.0) gm/dL Hct (34.0-46.0) % MCV (80.0-100.0) fL MCH (25.0-35.0) pg MCHC (31.0-37.0) g/dL RDW (11.5-15.5) % Plt Count (150-450) k/uL MPV Neutrophils % % Lymphocytes % % Monocytes % % Eosinophils % % Basophils % % Neutrophils # (1.3-7.7) k/uL Lymphocytes # (1.0-4.8) k/uL Monocytes # (0-1.0) k/uL Eosinophils # (0-0.7) k/uL Basophils # (0-0.2) k/uL PT (10.0-12.5) sec INR (<1.2) APTT (22.0-30.0) sec VBG pH 7.40 (7.31-7.41) VBG pCO2 41 (37-51) mmHg VBG HCO3 25 (24-28) mmol/L Sodium 138 (137-145) mmol/L Potassium 4.1 (3.5-5.1) mmol/L Chloride 103 (98-107) mmol/L Carbon Dioxide 20 L (22-30) mmol/L Anion Gap 15 mmol/L BUN 11 (7-17) mg/dL Creatinine 0.70 (0.52-1.04) mg/dL Est GFR (CKD-EPI)AfAm >90 (>60 ml/min/1.73 sqM) Est GFR (CKD-EPI)NonAf >90 (>60 ml/min/1.73 sqM) Glucose 126 H (74-99) mg/dL POC Glucose (mg/dL) (70-110) mg/dL POC Glu Armored Service Technician ID Calcium 9.3 (8.4-10.2) mg/dL Total Bilirubin 0.8 (0.2-1.3) mg/dL AST 32 (14-36) U/L ALT 28 (4-34) U/L Alkaline Phosphatase 59 (38-126) U/L Creatine Kinase 130 (30-135) U/L Troponin I <0.012 (0.000-0.034) ng/mL Total Protein 7.4 (6.3-8.2) g/dL Albumin 4.4 (3.5-5.0) g/dL Serum Alcohol <10 mg/dL Disposition Clinical Impression: AMS (altered mental status) Disposition: ADMITTED IP TO THIS HOSP Condition: Stable Is patient prescribed a controlled substance at d/c from ED?: No Referrals: Js Elliott DO [Primary Care Provider] - 1-2 days Time of Disposition: 15:01
[2023-05-04 14:18] LABS: ALT 28 U/L (4-34); African American GFR (CKD) >90 (>60 ml/min/1.73 sqM); Albumin 4.4 g/dL (3.5-5.0); Alcohol <10 mg/dL; Anion Gap 15 mmol/L; Blood Urea Nitrogen 11 mg/dL (7-17); Calcium 9.3 mg/dL (8.4-10.2); Carbon Dioxide 20 mmol/L (22-30); Chloride 103 mmol/L (98-107); Creatine Kinase 130 U/L (30-135); Glucose 126 mg/dL (74-99); Non-African American GFR(CKD) >90 (>60 ml/min/1.73 sqM); Sodium 138 mmol/L (137-145); Total Bilirubin 0.8 mg/dL (0.2-1.3); Total Protein 7.4 g/dL (6.3-8.2)
--- NOTE | 2023-05-04 14:20 | XR ---
EXAMINATION TYPE: XR chest 2V DATE OF EXAM: 05/04/2023 COMPARISON: CT brain March 17, 2023 HISTORY: Altered mental status TECHNIQUE: Frontal and lateral views of the chest are obtained. FINDINGS: Elevated and eventrated anterior aspect right hemidiaphragm is redemonstrated. The lung vo lumes again seen. There is no focal air space opacity, pleural effusion, or pneumothorax seen. The c ardiac silhouette size is stable and within normal limits. The osseous structures are intact. IMPRESSION: No acute cardiopulmonary process. No significant change from prior.
--- NOTE | 2023-05-04 14:24 | CT ---
EXAMINATION TYPE: CT brain wo con DATE OF EXAM: 05/04/2023 COMPARISON: CT brain March 17, 2023 HISTORY: Neuro deficit, acute, stroke suspected CT DLP: 1095.4 mGycm. Automated Exposure Control for Dose Reduction was Utilized. TECHNIQUE: CT scan of the head is performed without contrast. FINDINGS: There is no acute intracranial hemorrhage, mass effect, or midline shift identified. Mild ventricular prominence particularly posterior horns and atria of lateral ventricles consistent with colpocephaly is redemonstrated similar to prior. Rojas-white matter differentiation is preserved. The calvarium is intact. The globes are intact and the visualized sinuses are clear. IMPRESSION: No acute intracranial hemorrhage or midline shift is seen.
[2023-05-04 14:27] LABS: Potassium 4.1 mmol/L (3.5-5.1)
[2023-05-04 14:28] LABS: AST 32 U/L (14-36); Alkaline Phosphatase 59 U/L (38-126)
[2023-05-04 14:55] LABS: Basophils % (A) 1 %; Eosinophils # (A) 0.3 k/uL (0-0.7); Eosinophils % (A) 3 %; HCT 42.6 % (34.0-46.0); HGB 14.4 gm/dL (11.4-16.0); Lymphocytes # (A) 2.1 k/uL (1.0-4.8); Lymphocytes % (A) 25 %; MCH 29.5 pg (25.0-35.0); MCHC 33.9 g/dL (31.0-37.0); MCV 87.1 fL (80.0-100.0); Mean Platelet Volume 7.5; Monocytes # (A) 0.5 k/uL (0-1.0); Monocytes % (A) 6 %; Neutrophils # (A) 5.3 k/uL (1.3-7.7); Neutrophils % (A) 65 %; Platelet Count 212 k/uL (150-450); RBC 4.89 m/uL (3.80-5.40); RDW 12.4 % (11.5-15.5); WBC 8.2 k/uL (3.8-10.6)
[2023-05-04] MEDS ORDERED: NALOXONE 0.4 MG/ML 1 ML VIAL IV PRN (14:57)
[2023-05-04] MEDS ORDERED: ACETAMINOPHEN TAB 325 MG TAB PO PRN (14:57)
[2023-05-04] MEDS ORDERED: SODIUM CHLORIDE 0.9% 500 ML 500 ML IV ONE (15:07)
[2023-05-04] MEDS ORDERED: ASPIRIN 325 MG TAB PO STA (15:07)
[2023-05-04] MEDS: SODIUM CHLORIDE 0.9% 1,000 ML IV SCH (15:12)
[2023-05-04 17:23] LABS: Appearance,Urine Clear (Clear); Bilirubin,Urine Negative (Negative); Blood,Urine Negative (Negative); Color,Urine Colorless; Glucose,Urine (UA) Negative (Negative); Ketones,Urine Negative (Negative); Leukocyte Esterase,Urine Negative (Negative); Nitrite,Urine Negative (Negative); PH, Urine 6.5 (5.0-8.0); Protein,Urine Negative (Negative); Specific Gravity,Urine 1.009 (1.001-1.035); Urobilinogen,Urine <2.0 mg/dL (<2.0)
[2023-05-04 17:49] LABS: Cocaine Screen,Urine Not Detected (NotDetected); Phencyclidine Screen,Urine Not Detected (NotDetected); Urn Cannabinoid Scrn Not Detected (NotDetected)
[2023-05-04 17:50] LABS: Amphetamine Screen,Urine Not Detected (NotDetected); Barbiturate Screen,Urine Not Detected (NotDetected); Benzodiazepines Screen,Urine Detected (NotDetected); Methadone Screen, Urine Not Detected (NotDetected); Opiate Screen,Urine Not Detected (NotDetected); Oxycodone Screen, Urine Not Detected (NotDetected); Tricyclic Antidepressant,Urine Not Detected (NotDetected)
[2023-05-04] MEDS ORDERED: LORazepam 1 MG TAB PO PRN (21:15)
[2023-05-05 07:39] VITALS: RESP 15
[2023-05-05] MEDS: SODIUM CHLORIDE 0.9% 1,000 ML IV SCH (11:35)
[2023-05-05] MEDS ORDERED: TROSPIUM CHLORIDE 20 MG TABLET PO SCH ×2 (13:05→21:00)
[2023-05-05 15:26] VITALS: BP 110/75; PULSE 97; TEMP 98.1
--- NOTE | 2023-05-05 15:32 | P.CNNES ---
History of Present Illness Consult date: 05/05/23 Requesting physician: Duran James Reason for Consult: ams History of Present Illness: This is a 47-year-old woman who presents to the emergency department for altered mental status. According the patient she had an episode of being drowsy slurring her speech yesterday in the afternoon lasting for 2 hours that was notified by family members. She denies any tongue bite, urinary bowel incontinence or any jerking episodes. She feels she is back to baseline. Denies of any headache any nausea any vomiting. Patient is known to me and [facility] of unresponsive staring off without loss of consciousness during February 2023. I suspected that Rhoda seizure. She had a routine EEG which was normal. I recommended a prolonged EEG or epilepsy moderate as an outpatient. She had a MRI of the brain which was negative. I recommended to be on Lamictal 25 mg starting dose and going up 25 mg every 1 week to 100 mg twice a day. Patient stated that she was on it briefly and she followed up with her memory attending and it was felt not needed according to the patient. She has an appointment with upcoming neurologist and third week of February 2024. Please refer to my notes for details. Some of the workup during this hospital visit consisted of: CBC with differential is unremarkable Chemistry panel is the serum glucose is 126. Sodium, calcium, ACL tear, BUN/creatinine are within normal limits. CK level is within normal limits Urinalysis is negative for any underlying urinary tract infection Urine drug seen is positive for benzo and otherwise rest is not detected in the serum alcohol level is less than 10. CT of the head is reported as no acute intracranial hemorrhage or midline shift is seen. I personally reviewed this the head and I agree there is no acute or subacute ischemia. There is no bleed that acute or subacute Review of Systems Review of system: The 12 point system was reviewed and apparent positive and negative per HPI. Past Medical History Past Medical History: Asthma, Cancer, Neurologic Disorder, Pneumonia, Respiratory Disorder, Thyroid Disorder Additional Past Medical History / Comment(s): cerebral palsy diagnosed 10 month old, spastic quadraplegic, uses forearm crutches is fall risk, EXERCISE INDUCED ASTHMA MILD, not currently taking thyroid medication, right breast cancer diagnosed 04/27/16 with surgery, chemo, and radiation 05/24/16, chronic ear infections-r/t ear canal development, tubes in ears, possible sleep apnea- patient not diagnosed; has worn a heart monitor for 1 month per [facility] in past r/t r/o stroke History of Any Multi-Drug Resistant Organisms: None Reported Date of last positivie culture/infection: 03/09/20 MDRO Source:: ESBL URINE Past Surgical History: Cholecystectomy, Ear Surgery, Orthopedic Surgery, Tonsillectomy Additional Past Surgical History / Comment(s): ORIF RT LEG, W/ SUMANTH, SCREWS. TENDON LENGTHENING IN FEET, LEGS., R sided lumpectomy with sentinel lymph node removal, bowel perforiation post gallbladder removal-had to go back to repair with Dr. Acosta. Past Anesthesia/Blood Transfusion Reactions: Previous Problems w/ Anesthesia Additional Past Anesthesia/Blood Transfusion Reaction / Comment(s): SUCCINYLCHOLINE GREATLY INCREASES SPASTICITY LEGS. Past Psychological History: Anxiety, Depression, Panic Disorder Smoking Status: Former smoker Past Alcohol Use History: None Reported Past Drug Use History: None Reported - Past Family History Mother Family Medical History: Cancer Additional Family Medical History / Comment(s): lung cancer, has passed Father Family Medical History: Diabetes Mellitus, Hypertension Additional Family Medical History / Comment(s): extensive heart history Medications and Allergies Home Medications Medication Instructions Recorded Confirmed Type Albuterol Inhaler [Ventolin Hfa 1 - 2 puff INHALATION RT-Q6H PRN 03/20/19 05/04/23 Rx Inhaler] #1 inhaler Fesoterodine Fumarate 8 mg PO DAILY 03/17/23 05/04/23 History [Fesoterodine Fumarate ER] LORazepam [Ativan] 2 mg PO HS 03/17/23 05/04/23 History Vilazodone HCl [Viibryd] 40 mg PO DAILY 03/17/23 05/04/23 History Aspirin 81 mg PO DAILY 30 Days #30 tab 03/20/23 05/04/23 Rx Allergies Allergy/AdvReac Type Severity Reaction Status Date / Time chlorhexidine Allergy Rash/Hives Verified 05/04/23 15:31 Iodinated Contrast Media Allergy Rash/Hives Verified 05/04/23 15:31 succinylcholine AdvReac Severe EXACERBATED Verified 05/04/23 15:31 SPASTICITY IN LEGS Physical Examination - Vital Signs Vital Signs: Vital Signs Temp Pulse Pulse Resp BP BP Pulse Ox 05/05/23 14:00 63 15 05/05/23 08:00 63 15 05/05/23 07:00 97.4 F L 63 15 108/73 100 05/05/23 01:25 97.5 F L 82 16 106/74 97 05/04/23 19:25 97.7 F 90 16 154/57 98 05/04/23 17:45 98.2 F 82 16 116/81 94 L 05/04/23 16:00 94 16 101/87 98 05/04/23 15:19 74 16 101/87 98 Intake and Output 05/05/23 05/05/23 05/05/23 06:59 14:59 22:59 Intake Total 118 Balance 118 Intake: Oral 118 Other: Voiding Method Toilet # Voids 2 2 General: Lying in bed and is not in acute distress. Neuro: Patient is awake alert oriented to self, place and time. Is following simple commands. No aphasia and no neglect. Pupils are round equal reactive to light. Pupils around 3 mm. Extraocular movement is intact no nystagmus. Visual pak are full to confrontation. No facial weakness. No dysarthria. Motor: His strength as has dexterity issue of the uppers which is old otherwise strength in upper's are 5 out of 5. In the lower she has spasticity which is old but is able to lift up above gravity. Sensory: Normal to touch throughout. Results - Laboratory Findings CBC and BMP: 05/04/23 13:37 05/04/23 13:37 Abnormal Lab Findings: Abnormal Labs 05/04/23 05/04/23 05/04/23 13:19 13:37 13:37 Carbon Dioxide 20 L Glucose 126 H POC Glucose (mg/dL) 140 H U Benzodiazepines Scrn Detected H Assessment and Plan Assessment: This is a 47-year-old woman who presents because episode of dysarthria, dr mitchell lasting for 2 hours at. In February 2023 patient had episode of partial unresponsive staring was concern about a seizure. * Repeated episode of confusion with dysarthria seems concerning for possible seizure especially since February 2023 she had episode of partial unresponsiveness and was staring off and tiredness. MRI of the brain at that time was negative for any acute subacute stroke. Recent CT of the head is negative as well. * History of cerebral palsy, with paraparesis. * History of breast cancer * Anxiety, depression, multiple stressors. Plan: February 2023 I recommend the patient to be on Lamictal with the increased titration dose starting with 25 mg until 100 mg twice a day (25mg daily for one week then 2nd week 25mg bid then 3rd week 50mg qam and 25mg qhs etc until 100mg bid). She stated that she followed up with the primary and it was decided to hold off with the Lamictal for now since it was not needed according to the patient. I notified the patient to go back on Lamictal because of her recurrent symptoms. 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 She states she has enough lamictal at home. She had a prior EEG routine in February which was normal. I'll obtain a to one half hour EEG as an outpatient and this will be coordinated by the picking tech. Because of the suspected seizures, per the [place] law to avoid driving for 6 month until seizure-free, avoid heights, avoid using heavy machinery or swim unassisted. For the rest of the medical management as an outpatient. Patient has a common up appointment with the neurologist on the third week of May 2023. There is no further neurological work-up. The plan is discussed with patient and her nurse. Thank you for the consultation. Time with Patient: Greater than 30
[2023-05-05] MEDS ORDERED: lamoTRIgine 25 MG TAB PO SCH (15:45)
--- NOTE | 2023-05-05 16:19 | P.HPIM ---
History of Present Illness H&P Date: 05/05/23 47-year-old woman who presents to the emergency department for altered mental status. According the patient she had an episode of being drowsy slurring her speech yesterday in the afternoon lasting for 2 hours that was notified by family members. She denies any tongue bite, urinary bowel incontinence or any jerking episodes. She feels she is back to baseline. Denies of any headache any nausea any vomiting. Patient had similar episodes of unresponsive staring off without loss of consciousness during February 2023. She had a routine EEG which was normal. Patient is recommended a prolonged EEG or epilepsy moderate as an outpatient. She had a MRI of the brain which was negative. Patient was evaluated by neurology at that time and was recommended to be on Lamictal 25 mg starting dose and going up 25 mg every 1 week to 100 mg twice a day. Patient stated that she was on it briefly and she followed up with her PCP and it was felt not needed according to the patient. She has an appointment with upcoming neurologist and third week of February 2024. Workup in ED revealed-- CBC with differential is unremarkable Chemistry panel is the serum glucose is 126. Sodium, calcium, ACL tear, BUN/creatinine are within normal limits. CK level is within normal limits Urinalysis is negative for any underlying urinary tract infection Urine drug seen is positive for benzo and otherwise rest is not detected in the serum alcohol level is less than 10. CT of the head is reported as no acute intracranial hemorrhage or midline shift is seen. I personally reviewed this the head and I agree there is no acute or subacute ischemia. There is no bleed that acute or subacute Review of Systems ROS unobtainable: due to mental status Past Medical History Past Medical History: Asthma, Cancer, Neurologic Disorder, Pneumonia, Respiratory Disorder, Thyroid Disorder Additional Past Medical History / Comment(s): cerebral palsy diagnosed 10 month old, spastic quadraplegic, uses forearm crutches is fall risk, EXERCISE INDUCED ASTHMA MILD, not currently taking thyroid medication, right breast cancer diagnosed 04/27/16 with surgery, chemo, and radiation 05/24/16, chronic ear infections-r/t ear canal development, tubes in ears, possible sleep apnea- patient not diagnosed; has worn a heart monitor for 1 month per caridology assicocaites in past r/t r/o stroke History of Any Multi-Drug Resistant Organisms: None Reported Date of last positivie culture/infection: 03/09/20 MDRO Source:: ESBL URINE Past Surgical History: Cholecystectomy, Ear Surgery, Orthopedic Surgery, Tonsillectomy Additional Past Surgical History / Comment(s): ORIF RT LEG, W/ SUMANTH, SCREWS. TENDON LENGTHENING IN FEET, LEGS., R sided lumpectomy with sentinel lymph node removal, bowel perforiation post gallbladder removal-had to go back to repair with Dr. Acosta. Past Anesthesia/Blood Transfusion Reactions: Previous Problems w/ Anesthesia Additional Past Anesthesia/Blood Transfusion Reaction / Comment(s): SUCCINYLCHOLINE GREATLY INCREASES SPASTICITY LEGS. Past Psychological History: Anxiety, Depression, Panic Disorder Smoking Status: Former smoker Past Alcohol Use History: None Reported Past Drug Use History: None Reported - Past Family History Mother Family Medical History: Cancer Additional Family Medical History / Comment(s): lung cancer, has passed Father Family Medical History: Diabetes Mellitus, Hypertension Additional Family Medical History / Comment(s): extensive heart history Medications and Allergies Home Medications Medication Instructions Recorded Confirmed Type Albuterol Inhaler [Ventolin Hfa 1 - 2 puff INHALATION RT-Q6H PRN 03/20/19 05/04/23 Rx Inhaler] #1 inhaler Fesoterodine Fumarate 8 mg PO DAILY 03/17/23 05/04/23 History [Fesoterodine Fumarate ER] LORazepam [Ativan] 2 mg PO HS 03/17/23 05/04/23 History Vilazodone HCl [Viibryd] 40 mg PO DAILY 03/17/23 05/04/23 History Aspirin 81 mg PO DAILY 30 Days #30 tab 03/20/23 05/04/23 Rx lamoTRIgine [LaMICtal] 25 mg PO DAILY tab 05/05/23 Rx Allergies Allergy/AdvReac Type Severity Reaction Status Date / Time chlorhexidine Allergy Rash/Hives Verified 05/04/23 15:31 Iodinated Contrast Media Allergy Rash/Hives Verified 05/04/23 15:31 succinylcholine AdvReac Severe EXACERBATED Verified 05/04/23 15:31 SPASTICITY IN LEGS Physical Exam Vitals: Vital Signs Temp Pulse Pulse Resp BP BP Pulse Ox 05/05/23 08:00 63 15 05/05/23 07:00 97.4 F L 63 15 108/73 100 01/06/24 01:25 97.5 F L 82 16 106/74 97 05/04/23 19:25 97.7 F 90 16 154/57 98 05/04/23 17:45 98.2 F 82 16 116/81 94 L 05/04/23 16:00 94 16 101/87 98 05/04/23 15:19 74 16 101/87 98 05/04/23 13:20 96.9 F L 88 20 110/86 95 Intake and Output 05/04/23 05/05/23 05/05/23 22:59 06:59 14:59 Intake Total 118 Balance 118 Intake: Oral 118 Other: Voiding Method Toilet # Voids 1 2 Weight 90.718 kg General appearance: in no apparent distress, lethargic Head exam: Present: atraumatic, normocephalic Eye exam: Present: normal appearance, PERRL ENT exam: Present: normal exam Neck exam: Present: normal inspection. Absent: tenderness, meningismus Respiratory exam: Present: normal lung sounds bilaterally. Absent: respiratory distress, wheezes Cardiovascular Exam: Present: regular rate, normal rhythm GI/Abdominal exam: Present: soft. Absent: distended, tenderness Extremities exam: Present: normal inspection, normal capillary refill Neurological exam: Present: alert, oriented X3, CN II-XII intact, other (Slow to respond but able to answer all questions.). Absent: motor sensory deficit Skin exam: Present: warm, dry, intact Results CBC & Chem 7: 05/04/23 13:37 05/04/23 13:37 Labs: Abnormal Lab Results - Last 24 Hours (Table) 05/04/23 05/04/23 05/04/23 Range/Units 13:19 13:37 13:37 Carbon Dioxide 20 L (22-30) mmol/L Glucose 126 H (74-99) mg/dL POC Glucose (mg/dL) 140 H (70-110) mg/dL U Benzodiazepines Scrn Detected H (NotDetected) Assessment and Plan Assessment: 1. Altered mental status - Patient had a two-hour episode of confusion, drowsiness and dysarthria; patient has had episodes of unresponsiveness since February 2023; MRI of the brain completed that was unremarkable; repeat CT was negative -- Patient's mental status change his treatment likely related to ongoing seizures; patient has been taken off of Lamictal; neurology is consulted 2. Asthma; not in exacerbation; continue with home therapy 3. Urinary incontinence/retention; patient is currently on Fesoterodine 4. Anxiety/depression; patient takes lorazepam 2 mg by mouth daily at bedtime along with Viibryd 40 mg daily DVT prophylaxis; SCDs CODE STATUS; full code
[2023-05-06] MEDS ORDERED: ASPIRIN 81 MG PO SCH (09:00)
[2023-05-06] MEDS ORDERED: NON FORMULARY DRUG (Vilazodone Hcl [Viibryd] 40 MG Tablet) PO SCH (09:00)
== END 2023-05-05 16:14 | disposition left against medical advice (07) ==
LOC: EC 13:09 → 6NMEDSUR 14:58
PROVIDERS: ADMIT Hospitalist; ATTEND Hospitalist
DX: R41.82 Altered mental status, unspecified (principal); R47.1 Dysarthria and anarthria; G80.0 Spastic quadriplegic cerebral palsy; J45.990 Exercise induced bronchospasm; E07.9 Disorder of thyroid, unspecified; R53.83 Other fatigue; R32 Unspecified urinary incontinence; R33.9 Retention of urine, unspecified; F32.A Depression, unspecified; F41.0 Panic disorder [episodic paroxysmal anxiety]; F41.9 Anxiety disorder, unspecified; Z53.29 Procedure and treatment not carried out because of patient's decision for other reasons; Z79.82 Long term (current) use of aspirin; Z79.899 Other long term (current) drug therapy; Z88.8 Allergy status to other drugs, medicaments and biological substances; Z88.3 Allergy status to other anti-infective agents; Z91.041 Radiographic dye allergy status; Z85.3 Personal history of malignant neoplasm of breast; Z86.73 Personal history of transient ischemic attack (TIA), and cerebral infarction without residual deficits; Z92.21 Personal history of antineoplastic chemotherapy; Z87.891 Personal history of nicotine dependence; Z92.3 Personal history of irradiation; Z16.12 Extended spectrum beta lactamase (ESBL) resistance; Z90.49 Acquired absence of other specified parts of digestive tract; Z98.890 Other specified postprocedural states; Z87.01 Personal history of pneumonia (recurrent); Z80.1 Family history of malignant neoplasm of trachea, bronchus and lung; Z83.3 Family history of diabetes mellitus; Z82.49 Family history of ischemic heart disease and other diseases of the circulatory system
CPT/HCPCS: 99285; 36415; 80053; 82550; 82803; 84484; 85025; 85610; 85730; 81003; 80306; 71046; 70450; G0378 ×2; G0480; 80320; 93005

== ENCOUNTER → 2023-06-05 | Outpatient (CLI) | payer OTHER | LOC: NEUROMAIN 08:10 | PROVIDERS: ATTEND Student in an Organized Health Care Education/Training Program | DX: G40.909 Epilepsy, unspecified, not intractable, without status epilepticus (principal); Z91.041 Radiographic dye allergy status; Z88.8 Allergy status to other drugs, medicaments and biological substances; Z79.82 Long term (current) use of aspirin | CPT/HCPCS: 95700; 95713 ==

== ENCOUNTER → 2023-07-30 | Day surgery (SDC) | payer MEDICARE, OTHER ==
[2023-07-30] MEDS: SODIUM CHLORIDE 0.9% 1,000 ML IV SCH (08:15)
[2023-07-30 08:22] VITALS: BP 132/76; PULSE 103; RESP 16; TEMP 97
--- NOTE | 2023-07-30 11:39 | P.EPPROC ---
- EP Procedure Note Electrophysiology Procedure Note: Diagnosis Recurrent syncope Twelve-lead EKG shows sinus tachycardia in the supine position 101 beats a minute normal [place] narrow QRS normal ST segments Tilt table test per protocol Baseline blood pressure 124/74 mmHg, baseline heart rate 100 bpm Patient was tilted upright in angle of 70 degrees per protocol No significant change in blood pressure Heart rate remained unchanged around 100 bpm no symptoms were noted and she was laid supine the end of the procedure Impression Mild resting sinus tachycardia No evidence for neurocardiogenic syncope No clear-cut evidence for postural tachycardia
== END ==
LOC: CATHEP 07:47
PROVIDERS: ATTEND Internal Medicine Clinical Cardiac Electrophysiology
DX: R00.0 Tachycardia, unspecified (principal); G80.9 Cerebral palsy, unspecified; Z85.3 Personal history of malignant neoplasm of breast; Z82.49 Family history of ischemic heart disease and other diseases of the circulatory system; Z79.82 Long term (current) use of aspirin; Z79.899 Other long term (current) drug therapy
CPT/HCPCS: 93660

== ENCOUNTER → 2023-11-27 | Outpatient (CLI) | payer MEDICARE ==
--- NOTE | 2023-11-27 22:31 | MR ---
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 TECHNIQUE: Multi planar, multi sequence imaging was performed through the brain. Specialized thin s equences were obtained through the internal auditory canals. Pre-and post gadolinium sequences were obtained. MR contrast: IV Contrast: 9 cc Gadavist FINDINGS: Dilation of ventricular systems mildly increased from 2015 but is similar to 03/20/2023. The tate-white junctions, ventricular system, and cisterns appear unremarkable. Scattered foci of h igh T2 signal intensity are seen within the periventricular white matter. Midline structures show no abnormality. Diffusion-weighted imaging shows no evidence of restricted diffusion. The susceptibility weighted images do not reveal any evidence for micro-hemorrhage. The bone marrow signal is within normal limits. Paranasal sinuses and mastoid air cells: High T2 signal in bilateral mastoid air cells. Visualized orbits: Orbital contents are intact. After administration of gadolinium, no abnormal enhancement is seen. The internal auditory canal sequences demonstrate no significant irregularity. The 7th cranial nerve s, 8 cranial nerves, and cerebellar pontine angles appear unremarkable. After the administration kari olinium, no abnormal enhancement is seen within the internal auditory canals. Vascular loop: None. IMPRESSION: 1. Dilation of ventricular system similar to prior dating back to at least 03/20/2023 mildly increas ed from 08/31/2015. 2. Bilateral mastoid air cell effusions. Correlate for mastoiditis left greater than right 3. No evidence of intracranial mass nor acute/subacute CVA. 4. No evidence of internal auditory canal abnormality.
== END | disposition home or self-care (01) ==
LOC: RADMRIMAIN 14:17
PROVIDERS: ATTEND Family Medicine
DX: H66.13 Chronic tubotympanic suppurative otitis media, bilateral (principal)
CPT/HCPCS: 70553; A9585

== ENCOUNTER → 2024-01-23 | Outpatient (CLI) | payer MEDICARE ==
--- NOTE | 2024-01-23 12:25 | MR ---
EXAMINATION TYPE: MR knee LT wo con DATE OF EXAM: 01/23/2024 COMPARISON: None HISTORY: Left knee pain, Cerebral palsy. TECHNIQUE: Multiplanar, multisequence imaging of the left knee is performed without IV contrast. FINDINGS: MEDIAL MENISCUS: Intrasubstance signal seen in the posterior horn. No definite articular extension is seen although there is findings suspicious for a tiny para meniscal cyst which could be an indirect indicator of meniscal tear. LATERAL MENISCUS: There is abnormal signal in the posterior horn compatible with myxoid degeneration. Superimposed subtle linear tear suspected. CRUCIATE LIGAMENTS: The anterior and posterior cruciate ligaments are intact and unremarkable. COLLATERAL LIGAMENTS: The medial collateral ligament is intact. Lateral collateral ligament limited i n assessment due to motion. There is increased signal near its origin and proximal attachment of the femur suspect at least tendinosis. EXTENSOR MECHANISM: Visualized quadriceps and patellar tendons are intact. EFFUSION: Moderate to large-sized suprapatellar bursal fluid collection. POPLITEAL CYST: No popliteal/loya cyst. TRICOMPARTMENT SPACES: Mild tricompartment joint narrowing. CARTILAGE: Ventilation involving the apex and lateral patellar cartilage compatible with chondromalac ia. There is localized cartilaginous loss along the lateral femoral articular cartilage compatible wi th grade II chondromalacia. BONE MARROW SIGNAL: There is a area of marrow edema involving the lateral tibial plateau. No definite fracture line. Correlate for bone contusion or reactive marrow edema. OTHER: Generalized mild subcutaneous edema. IMPRESSION: 1. Bone contusion or reactive marrow edema lateral tibial plateau with no definite fracture line. Cor relate for history of trauma. Microtrabecular fracture not entirely excluded. 2. Large suprapatellar bursal fluid collection. 3. Abnormal signal in posterior horn of the lateral meniscus favored linear tear over myxoid degenera tion. 4. Evaluation of the lateral collateral ligament is limited due to motion artifact. Suspected area of proximal tendinosis near the tibial attachment. Correlate clinically given motion artifact and limit ations of this exam. 5 suspect a tiny posterior para-meniscal cyst along the posterior horn of the medial meniscus. No def inite articular extension of abnormal signal within the meniscus. However, the para meniscal cyst can be a indirect indicator of tear. [facility], , 01/23/2024 12:23 PM
== END | disposition home or self-care (01) ==
LOC: RADMRIMAIN 09:58
PROVIDERS: ATTEND Family Medicine
DX: M23.92 Unspecified internal derangement of left knee

== ENCOUNTER → 2024-07-03 | Outpatient (CLI) | payer MEDICARE ==
--- NOTE | 2024-07-04 05:45 | XR ---
EXAMINATION TYPE: XR Hip Bilateral and AP pelvis DATE OF EXAM: 07/03/2024 COMPARISON: CT abdomen and pelvis July 13, 2021 CLINICAL INDICATION: Female, 48 years old with history of G80.1, R26.9; abnormal posture when walking . History of cerebral palsy. Possible right-sided subluxation. TECHNIQUE: A single AP view of the pelvis is obtained. Two views of the bilateral hips are obtained. FINDINGS: There is no acute fracture/dislocation evident in the pelvis or either hip. The hip and s acroiliac joints appear symmetric and within normal limits. Pubic symphysis is intact. The overlying soft tissue appears unremarkable. IMPRESSION: Unremarkable study. [facility], , 07/04/2024 5:42 AM
== END | disposition home or self-care (01) ==
LOC: RADXRMAIN 16:39
PROVIDERS: ATTEND Physical Medicine & Rehabilitation
DX: G80.1 Spastic diplegic cerebral palsy (principal); R26.9 Unspecified abnormalities of gait and mobility
CPT/HCPCS: 73521

== ENCOUNTER → 2024-11-06 | Outpatient (CLI) | payer MEDICARE ==
[2024-11-06 15:25] LABS: Basophils # (A) 0.04 X 10*3/uL (0.00-0.10); Basophils % (A) 0.7 %; Eosinophils # (A) 0.21 X 10*3/uL (0.04-0.35); Eosinophils % (A) 3.7 %; HCT 42.5 % (37.2-46.3); HGB 14.0 g/dL (12.0-15.0); Immature Grans, Automated 0.50 %; Lymphocytes # (A) 1.80 X 10*3/uL (0.90-5.00); Lymphocytes % (A) 32.0 %; MCH 29.2 pg (27.0-32.0); MCHC 32.9 g/dL (32.0-37.0); MCV 88.5 FL (80.0-97.0); Monocytes # (A) 0.40 X 10*3/uL (0.20-1.00); Monocytes % (A) 7.1 %; NRBC Per 100 WBC 0 X 10*3/uL (0.00-0.01); Neutrophils # (A) 3.14 X 10*3/uL (1.80-7.70); Neutrophils % (A) 56.0 %; Platelet Count 219 X 10*3/uL (140-440); RBC 4.80 X 10*6/uL (4.10-5.20); RDW 12.8 % (11.5-14.5); WBC 5.62 X 10*3/uL (4.50-10.00)
[2024-11-06 15:53] LABS: ALT 27 U/L (8-44); AST 29 U/L (13-35); Albumin 4.4 g/dL (3.8-4.9); Albumin/Globulin Ratio 1.76 Ratio (1.60-3.17); Alkaline Phosphatase 79 U/L (41-126); Anion Gap 12.40 mmol/L (4.00-12.00); BUN/Creat Ratio 11.00 Ratio (12.00-20.00); Bilirubin,Unconjugated >0.20 mg/dL (0.20-1.00); Blood Urea Nitrogen 8.8 mg/dL (9.0-27.0); Calcium 9.2 mg/dL (8.7-10.3); Carbon Dioxide 24.6 mmol/L (21.6-31.8); Chloride 102 mmol/L (96-109); Cholesterol 199.00 mg/dL (0.00-200.00); Ferritin 131.0 ng/mL (10.0-291.0); Globulin 2.5 g/dL (1.6-3.3); Glucose 110 mg/dL (70-110); HDL Cholesterol 40.00 mg/dL (40.00-60.00); Iron 66 UG/DL (50-170); LDL Cholesterol,Calculated 123.8 mg/dL (0.0-131.0); Potassium 3.7 mmol/L (3.5-5.5); Sodium 139 mmol/L (135-145); Total Iron Binding Capacity 337 UG/DL (228-460); Total Protein 6.9 g/dL (6.2-8.2); Triglycerides 176.00 mg/dL (0.00-149.00); VLDL Calculation 35.20 mg/dL (5.00-40.00); Vitamin B12 467.0 pg/mL (200.0-944.0)
[2024-11-06 15:56] LABS: Follicle Stimulating Hormone 23.5 mIU/mL
== END | disposition home or self-care (01) ==
LOC: LABWHC1 07:56
PROVIDERS: ATTEND Family Medicine
DX: Z13.1 Encounter for screening for diabetes mellitus (principal); Z13.220 Encounter for screening for lipoid disorders; Z51.81 Encounter for therapeutic drug level monitoring; E55.9 Vitamin D deficiency, unspecified; N95.1 Menopausal and female climacteric states; G80.1 Spastic diplegic cerebral palsy; R26.9 Unspecified abnormalities of gait and mobility; R53.83 Other fatigue; Z79.899 Other long term (current) drug therapy
CPT/HCPCS: 36415; 80053; 80061; 80175; 82248; 82306; 82607; 82728; 82746; 83001; 83002; 83036; 83540; 83550; 84144; 84403; 84443; 85025